=== PATIENT | female | born 1955 | race Caucasian/White ===

== ENCOUNTER → 2022-08-25 11:26 | Outpatient (BNVA) | payer MEDICARE, OTHER, SELFPAY | PROVIDERS: PCP Internal Medicine; Visit Provider Internal Medicine Rheumatology | DX: M06.09 Rheumatoid arthritis without rheumatoid factor, multiple sites (principal); Z79.899 Other long term (current) drug therapy | CPT/HCPCS: 99212 ==

== ENCOUNTER 2023-02-24 09:59 | Outpatient (AMB) | payer MEDICARE, OTHER, SELFPAY ==
--- NOTE | 2023-02-24 10:00 | A.OFFVIS_ITS ---
Intake Vital Signs 02/24/23 10:09 Height 5 ft 5 in Weight 212 lb 15.465 oz BMI 35.4 BP 118/72 Blood Pressure Location Lt brachial Position Sitting Pulse 60 Pulse Source Pulse Oximeter Temp 98.1 F Temp Source Skin Pulse Oximetry (%) 98 Oxygen Delivery Method Room Air Intake Visit Reasons: f/u appt for RA Intake Note: Here for RA follow up Pacemaker placed in June,- [employer] Required: No Accompanied by: Self / Same As Patient Allergies flecainide Allergy (Unknown, Verified 02/24/23 10:01) Unknown Sulfa (Sulfonamide Antibiotics) Allergy (Unknown, Verified 02/24/23 10:01) Unknown eggs Allergy (Intermediate, Uncoded 02/24/23 10:01) nausea vomiting Medication List - Last Reconciled 02/24/23 by Nahid Berger MD albuterol sulfate 90 mcg/actuation (ProAir HFA) 2 puffs inhalation Q6H PRN calcium carbonate-vitamin D3 600 mg-10 mcg (400 unit) (Calcium 600 + D(3)) 1 tab PO BID cyclosporine 0.05% (Restasis) drps ophthalmic (eye) hydroxychloroquine 200 mg PO BID multivitamin 1 tab PO DAILY omeprazole 40 mg PO DAILY rivaroxaban (Xarelto) 20 mg PO DAILY sotalol 160 mg PO Q12H torsemide 10 mg PO BID HPI HPI Comments History of Present Illness Details The patient returns for evaluation of her rheumatoid arthritis. She basically is comfortable with exception of the right forearm. For the past couple of weeks she has noticed some pain there on the volar aspect of the forearm. There has been no redness, bruising or swelling. She was doing some weed whacking and did have some discomfort in the area after that activity but otherwise she does not recall any discrete injury. She remains on hydroxychloroquine at 200 mg twice a day. She said she had an eye exam in June that was okay. She thinks the cardiac situation is stable for now since she acquired a pacemaker. She has remained on his Xarelto, sotalol, and torsemide. [facility] Medical History (Updated 02/24/23 @ 13:45 by Nahid Berger MD) Allergic rhinitis CTS (carpal tunnel syndrome) Esophageal stricture Hypertension JOHN (obstructive sleep apnea) Pacemaker Palpitations Snoring Thoracic aortic aneurysm without rupture Venous insufficiency Surgical History Dilatation of esophagus H/O cardiac radiofrequency ablation History of carpal tunnel release Hx of breast biopsy Hx of colonoscopy Hx of tonsillectomy Family History Mother Heart disease Alzheimer disease Father Pancreas cancer Sister Breast cancer A-fib Social History Household Members: Children Alcohol intake: current Patient Tobacco Use Status: Never used Tobacco Current occupational status: employed Current occupation: [employer] Review of Systems Const Details: Negative for appetite change, weight change, fever, chills, malaise and fatigue Eyes Details: Negative for vision change, dry eyes,headaches and dizziness Card Details: Negative chest pain, edema and syncope Resp Details: Negative for SOB, cough and wheezing GI Details: Negative indigestion/heartburn, nausea, abdominal pain, bowel changes, diarrhea, constipation and bloody stool. Endo Details: Negative for polyuria and polydypsia Yasmany/Lymph Details: Negative for excessive bruising or bleeding. Physical Exam Vital Signs: Last Vital Signs Temp 98.1 F 02/24/23 10:09 Pulse 60 02/24/23 10:09 BP 118/72 02/24/23 10:09 Pulse Ox 98 02/24/23 10:09 Oxygen Delivery Method Room Air 02/24/23 10:09 BMI result Body Mass Index 35.4 APPEARANCE: Patient in no acute distress EYES no redness, pupils equal and reactive to light, eyelids normal EXTREMITIES: No edema, no calf tenderness, normal peripheral pulses. SKIN: No inflammatory or neoplastic lesions. Normal color and turgor JOINT EXAM: Cervical Spine:.? Full range of motion without pain; no tenderness. Thoracic Spine:.? No scoliosis.? No tenderness on palpation. Lumbar Spine:.? Alignment normal.? Full range of motion without pain, no tenderness. Chest Wall:.? No tenderness, swelling, increased warmth or erythema. Hands:.? Normal pain-free range of motion without tenderness.? There is some bony enlargement at the thumb IP joints but they are not tender.? Elsewhere no swelling, increased warmth or erythema. Able to make a full fist and has a good cement boat and barge loader strength.? No flexor tendon triggering or tenderness.? No thenar atrophy or sensory loss. Wrists:? Normal pain-free range of motion without tenderness, swelling, increased warmth or erythema. There is some slight tenderness on the volar aspect of the forearm. I do not detect any redness, swelling or induration. Stressing of the flexes at the wrist that seems to reproduce some this forearm pain and he some degree of muscle irritation. Elbows:. Normal pain-free range of motion without tenderness, swelling, increased warmth or erythema. Shoulders:.?? Full range of motion without pain. No tenderness, weakness, swelling, increased warmth or erythema. Hips:.? Full range of motion without pain. Hip bursa:.? No tenderness. Knees:.?? Normal pain-free range of motion with mild patellofemoral crepitus.? No effusion, tenderness, swelling, increased warmth or erythema.? Ankles:.? Normal pain-free range of motion without tenderness, swelling, increased warmth or erythema. Feet:? Normal pain-free range of motion without tenderness, swelling, increased warmth or erythema. Tender points:? No tenderness to digital palpation at the occiput, trapezius, second rib, lateral epicondyle, knees, greater trochanter and gluteal area bilaterally. ? Assessment & Plan Assessment & Plan (1) Osteopenia: Comment: Osteopenia on BMD 2006. Prednisone Rx 2007-. Alendronate 04/30-01/01. BMD 2018: some what better Code(s): M85.80 - Other specified disorders of bone density and structure, unspecified site (2) Long-term use of hydroxychloroquine: Code(s): Z79.899 - Other detention (current) drug therapy (3) Seronegative rheumatoid arthritis of multiple sites: Comment: 2006 with PMR like presentation; RF,CCP Ab negative. Hydroxychloroquine 2008. Eye exam 01/2010, 07/2010, 01/30, 07/03, 01/31,02/01, 02/02. 02/03, 03/08,03/09, 05/11, 07/2020, 05/2022,06/2022 Code(s): M06.09 - Rheumatoid arthritis without rheumatoid factor, multiple sites Plan Rheumatoid arthritis with no significant joint symptoms currently. There is some slight tenderness in the forearm muscular suggesting maybe an overuse injury. Exam still has some findings of some mild osteoarthritis in the hands. The bone density test was last done in 2018 showing some stable osteopenia. She had four years or so treatment with oral alendronate. She has had no fractures. We will see if we can get the bone density repeated at [place] where she had her previous testing. For now she can stay with hydroxychloroquine and we will aim for follow-up in Rheumatology in about 6 months. Orders: Orders XR DEXA vertrebral fracture Today M85.80 - Other specified disorders of bone density and structure, unspecified site Coding Level of Care Code Est Pt Level 3 (38443) Diagnoses Osteopenia M85.80 Long-term use of hydroxychloroquine Z79.899 Seronegative rheumatoid arthritis of multiple sites M06.09
[2023-02-24 10:09] VITALS: BP 118/72; PULSE 60; TEMP 36.7; O2SAT 98; BMI 35.4
== END 2023-02-24 10:42 | disposition home or self-care (01) ==
PROVIDERS: PCP Internal Medicine; Visit Provider Internal Medicine Rheumatology
DX: M85.80 Other specified disorders of bone density and structure, unspecified site (principal); Z79.899 Other long term (current) drug therapy; M06.09 Rheumatoid arthritis without rheumatoid factor, multiple sites
CPT/HCPCS: 99213

== ENCOUNTER → 2023-02-24 09:59 | Outpatient (BNVA) | payer MEDICARE, OTHER, SELFPAY | PROVIDERS: PCP Internal Medicine; Visit Provider Internal Medicine Rheumatology | DX: M06.09 Rheumatoid arthritis without rheumatoid factor, multiple sites (principal); M85.80 Other specified disorders of bone density and structure, unspecified site; Z79.899 Other long term (current) drug therapy | CPT/HCPCS: 99212 ==

== ENCOUNTER 2023-09-09 12:30 | Outpatient (AMB) | payer MEDICARE, OTHER, SELFPAY ==
--- NOTE | 2023-09-09 12:41 | MHC.OFFVIS ---
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 Accompanied by: Self / Same As Patient Allergies flecainide Allergy (Unknown, Verified 09/09/23 12:44) Unknown Sulfa (Sulfonamide Antibiotics) Allergy (Unknown, Verified 09/09/23 12:44) Unknown eggs Allergy (Intermediate, Uncoded 09/09/23 12:44) nausea vomiting Medication List - Last Reconciled 09/09/23 by Skye Alexander RN albuterol sulfate 90 mcg/actuation (ProAir HFA) 2 puffs inhalation Q6H PRN calcium carbonate-vitamin D3 600 mg-10 mcg (400 unit) (Calcium 600 + D(3)) 1 tab PO BID cyclosporine 0.05% (Restasis) drps ophthalmic (eye) hydroxychloroquine 200 mg PO BID multivitamin 1 tab PO DAILY omeprazole 40 mg PO DAILY rivaroxaban (Xarelto) 20 mg PO DAILY sotalol 120 mg PO Q12H torsemide 10 mg PO BID HPI HPI Comments History of Present Illness Details Ms. Aguirre 68-year-old female returns for follow-up of her rheumatoid arthritis and osteoporosis. She remains on hydroxychloroquine 200 mg twice a day. She have had four years or so treatment with oral alendronate. She has had no fractures. She was recently repeated her DEXA. 02/24/2023 Dr. Berger: The patient returns for evaluation of her rheumatoid arthritis. She basically is comfortable with exception of the right forearm. For the past couple of weeks she has noticed some pain there on the volar aspect of the forearm. There has been no redness, bruising or swelling. She was doing some weed whacking and did have some discomfort in the area after that activity but otherwise she does not recall any discrete injury. She remains on hydroxychloroquine at 200 mg twice a day. She said she had an eye exam in June that was okay. She thinks the cardiac situation is stable for now since she acquired a pacemaker. She has remained on his Xarelto, sotalol, and torsemide. [facility] Medical History Pacemaker CTS (carpal tunnel syndrome) Allergic rhinitis Venous insufficiency JOHN (obstructive sleep apnea) Snoring Palpitations Hypertension Thoracic aortic aneurysm without rupture Esophageal stricture Surgical History Hx of breast biopsy H/O cardiac radiofrequency ablation Hx of tonsillectomy Hx of colonoscopy Dilatation of esophagus History of carpal tunnel release Family History Mother Heart disease Alzheimer disease Father Pancreas cancer Sister Breast cancer A-fib Social History Household Members: Children Alcohol intake: current Patient Tobacco Use Status: Never used Tobacco Current occupational status: employed Current occupation: [employer] Review of Systems Const All systems reviewed & are unremarkable except as noted in HPI and below Physical Exam Vital Signs: Last Vital Signs Temp 97.4 F 09/09/23 12:42 Pulse 67 09/09/23 12:42 Resp 16 09/09/23 12:42 BP 122/84 09/09/23 12:42 Pulse Ox 95 09/09/23 12:42 Oxygen Delivery Method Room Air 09/09/23 12:42 BMI result Body Mass Index 35.3 APPEARANCE: Patient in no acute distress EYES no redness, eyelids normal HEART:? Regular rhythm, S1-S2 heard, no murmurs, rubs or gallops. Pacemaker LUNG:? Clear to percussion and auscultation EXTREMITIES: no calf tenderness, normal peripheral pulses. SKIN: No inflammatory or neoplastic lesions. Normal color and turgor JOINT EXAM: Cervical Spine:.? Full range of motion without pain; no tenderness. Thoracic Spine:.? No scoliosis.? No tenderness on palpation. Lumbar Spine:.? Alignment normal.? Full range of motion without pain, no tenderness. Chest Wall:.? No tenderness, swelling, increased warmth or erythema. Hands:.? Normal pain-free range of motion without tenderness.? There is some bony enlargement at the thumb IP joints but they are not tender.? Elsewhere no swelling, increased warmth or erythema. Able to make a full fist and has a good asset protection assistant strength.? No flexor tendon triggering or tenderness.? No thenar atrophy or sensory loss. Wrists:? Normal pain-free range of motion without tenderness, swelling, increased warmth or erythema. There is some slight tenderness on the volar aspect of the forearm. I do not detect any redness, swelling or induration. Stressing of the flexes at the wrist that seems to reproduce some forearm pain and some degree of muscle irritation. Elbows:. Normal pain-free range of motion without tenderness, swelling, increased warmth or erythema. Shoulders:.?? Full range of motion without pain. No tenderness, weakness, swelling, increased warmth or erythema. Hips:.? Full range of motion without pain. Hip bursa:.? No tenderness. Knees:.?? Normal pain-free range of motion with mild patellofemoral crepitus.? No effusion, tenderness, swelling, increased warmth or erythema.? Ankles:.? Normal pain-free range of motion without tenderness, increased warmth or erythema. Bilateral non-pitting edema with tourniquette like sock impression at above the maleolous. Patient is on diuretic. Feet:? Normal pain-free range of motion without tenderness, swelling, increased warmth or erythema. Tender points:? No tenderness to digital palpation at the occiput, trapezius, second rib, lateral epicondyle, knees, greater trochanter and gluteal area bilaterally. ? Results Reviewed Results Reviewed: DEXA shows -1.7 osteopenia. CRP 0.78 Assessment & Plan Assessment & Plan (1) Osteopenia: Comment: Osteopenia on BMD 2006. Prednisone Rx 2007-. Alendronate 04/30-01/01. BMD 2018: some what better Code(s): M85.80 - Other specified disorders of bone density and structure, unspecified site Qualifiers: Osteopenia location: lumbar spine Qualified Code(s): M85.88 - Other specified disorders of bone density and structure, other site (2) Long-term use of hydroxychloroquine: Code(s): Z79.899 - Other correction (current) drug therapy (3) Seronegative rheumatoid arthritis of multiple sites: Comment: 2006 with PMR like presentation; RF,CCP Ab negative. Hydroxychloroquine 2008. Eye exam 01/2010, 07/2010, 01/30, 07/03, 01/31,02/01, 02/02. 02/03, 03/08,03/09, 05/11, 07/2020, 05/2022,06/2022 Code(s): M06.09 - Rheumatoid arthritis without rheumatoid factor, multiple sites Plan #RA: Rheumatoid arthritis with no significant joint symptoms today. There is some slight tenderness across the MCPs. She also has mild osteoarthritis in the hands. We will continue HCQ 200 mg BID. We will obtain labs for nex visit. She is due for eye exam in September. #Osteopenia: The bone density test was last done showing stable osteopenia. She had four years or so treatment with oral alendronate. She has had no fractures. She will continue on Calcium and Vit D supplements. I do not think we will restart Alendronate at this time. follow-up in Rheumatology in about 6 months. I spent 25 minutes reviewing chart, evaluating patient and documenting Orders: Orders C Reactive Protein Today M06.09 - Rheumatoid arthritis without rheumatoid factor, multiple sites, Z79.899 - Other rodent exterminator (current) drug therapy Erythrocyte Sedimentation Rate Today M06.09 - Rheumatoid arthritis without rheumatoid factor, multiple sites, Z79.899 - Other correction (current) drug therapy Comprehensive Met. Panel Today M06.09 - Rheumatoid arthritis without rheumatoid factor, multiple sites, Z79.899 - Other correction (current) drug therapy Complete Blood Count Auto Diff Today M06.09 - Rheumatoid arthritis without rheumatoid factor, multiple sites, Z79.899 - Other rodent exterminator (current) drug therapy Medications: Refilled hydroxychloroquine 200 mg PO BID 180 tabs 1RF M06.09 - Rheumatoid arthritis without rheumatoid factor, multiple sites Coding Level of Care Code Est Pt Level 3 (97905) Diagnoses Osteopenia of lumbar spine M85.88 Osteopenia location: lumbar spine Long-term use of hydroxychloroquine Z79.899 Seronegative rheumatoid arthritis of multiple sites M06.09
[2023-09-09 12:42] VITALS: BP 122/84; PULSE 67; RESP 16; TEMP 36.3; O2SAT 95; BMI 35.3
== END 2023-09-09 13:20 | disposition home or self-care (01) ==
PROVIDERS: PCP Internal Medicine; Visit Provider Nurse Practitioner Family
DX: M85.88 Other specified disorders of bone density and structure, other site (principal); Z79.899 Other long term (current) drug therapy; M06.09 Rheumatoid arthritis without rheumatoid factor, multiple sites
CPT/HCPCS: 99213

== ENCOUNTER → 2023-09-09 12:30 | Outpatient (BNVA) | payer MEDICARE, OTHER, SELFPAY | PROVIDERS: PCP Internal Medicine; Visit Provider Nurse Practitioner Family | DX: M85.88 Other specified disorders of bone density and structure, other site (principal); M06.09 Rheumatoid arthritis without rheumatoid factor, multiple sites; Z79.899 Other long term (current) drug therapy | CPT/HCPCS: 99212 ==

== ENCOUNTER 2024-04-07 12:23 | Outpatient (AMB) | payer MEDICARE, OTHER, SELFPAY ==
[2024-04-07 12:29] VITALS: BP 128/64; PULSE 63; O2SAT 99; BMI 35.7
--- NOTE | 2024-04-07 12:29 | A.OFFVIS_ITS ---
Vital Signs 04/07/24 12:29 Height 5 ft 5 in Weight 214 lb 8.156 oz BMI 35.7 BP 128/64 Blood Pressure Location Lt brachial Position Sitting Pulse 63 Pulse Source Pulse Oximeter Pulse Oximetry (%) 99 Oxygen Delivery Method Room Air Intake Visit Reasons: RA/Osteopenia Intake Note: Patient presents today for follow up on RA/osteopenia. She was last seen by Madison Wallace on 09/09/23. Allergies flecainide Allergy (Unknown, Verified 04/07/24 12:32) Unknown Sulfa (Sulfonamide Antibiotics) Allergy (Unknown, Verified 04/07/24 12:32) Unknown eggs Allergy (Intermediate, Uncoded 04/07/24 12:32) nausea vomiting Medication List - Last Reconciled 04/07/24 by Lizzie Zaragoza MD albuterol sulfate 90 mcg/actuation (ProAir HFA) 2 puffs inhalation Q6H PRN calcium carbonate-vitamin D3 600 mg-10 mcg (400 unit) (Calcium 600 + D(3)) 1 tab PO BID cyclosporine 0.05% (Restasis) drps ophthalmic (eye) hydroxychloroquine 200 mg PO BID multivitamin 1 tab PO DAILY omeprazole 40 mg PO DAILY perfluorohexyloctane (PF) 100% (Miebo (PF)) 1 drp ophthalmic (eye) QID rivaroxaban (Xarelto) 20 mg PO DAILY sotalol 120 mg PO Q12H torsemide 10 mg PO BID HPI Comments Details: Patient is a 68-year-old female with hypertension, obstructive sleep apnea, sick sinus syndrome status post pacemaker, atrial fibrillation on long-term anticoagulation who presents for follow-up of her osteopenia and seronegative r heumatoid arthritis. Interval History: Last seen 09/09/2023 with Madison Wallace. At that time patient was stable. She was assessed with a recent DEXA which continued to show osteopenia. Decision made to not continue with her alendronate. Today she reports she is feeling well has no new complaints. Sometimes she gets trigger finger in her right index finger but denies prolonged morning stiffness or any other signs or symptoms of rheumatoid arthritis. Rheumatologic History: Presented in 2006 with PMR like presentation. RF and CCP antibodies negative. Started on hydroxychloroquine in 2008. Has been stable on this since then. Current Rheumatology Medication(s): Hydroxychloroquine 200mg bid PFSH Medical History Pacemaker CTS (carpal tunnel syndrome) Allergic rhinitis Venous insufficiency JOHN (obstructive sleep apnea) Snoring Palpitations Hypertension Thoracic aortic aneurysm without rupture Esophageal stricture Surgical History Hx of breast biopsy H/O cardiac radiofrequency ablation Hx of tonsillectomy Hx of colonoscopy Dilatation of esophagus History of carpal tunnel release Family History Mother Heart disease Alzheimer disease Father Pancreas cancer Sister Breast cancer A-fib Social History Household Members: Children Alcohol intake: current Patient Tobacco Use Status: Never used Tobacco Current occupational status: employed Current occupation: [employer] Review of Systems Const Details: Review of Systems Constitutional: Denies fever, chills, weight loss ENT: Denies vision changes, eye pain or eye redness, dental caries, dry mouth GI: Denies nausea, vomiting, diarrhea, abdominal pain, change in BM Pulm: Denies SOB, LORA, hemoptysis, wheezing Cards: Denies chest pain, palpitations Skin: Denies Raynaud's, rash, nail changes, photosensitivity, POT HOLDER BINDER: Denies headaches, weakness, paresthesias, recurrent falls MSK: as per HPI All other systems reviewed and are unremarkable except noted above Physical Exam Vital Signs: BMI result Body Mass Index 35.7 Physical Examination Patient well appearing and in no apparent painful distress Able to rise from chair without support. ?Gait normal. Constitutional Mucous membranes pink and moist patient alert and cooperative HEENT Conjunctiva and sclera clear. ?Pupils equal round and reactive to light. ?No lymphadenopathy. ?Normal dentition. Respiratory System Normal respiratory effort and able to speak in complete sentences. ?Clear to auscultation bilaterally. ?No crackles, rales, rhonchi, wheezes heard. Cardiac System Regular rate and rhythm. ?S1 and S2 heard no murmurs. ?Radial pulses intact bilaterally MSK No deformity, swelling, abnormalities noted to bilateral hands. ?No evidence of synovitis. ?Able to move all joints with full range of motion, without limitation. Hands:.??Normal pain-free range of motion without tenderness, swelling, increased warmth or erythema. Able to make a full fist and has a good human resource consultant strength. Flexor tendon sheath nodule palpated over the right 2nd A1 mahsa. Wrists: Normal pain-free range of motion without tenderness, swelling, increased warmth or erythema. Elbows: Full range of motion without pain. No tenderness, weakness, swelling, increased warmth or erythema. Shoulders: Full range of motion without pain. No tenderness, weakness, swelling, increased warmth or erythema. Hips: Full range of motion without pain. Hip bursa:.??No tenderness. Knees:.???Normal pain-free range of motion without tenderness, swelling, increased warmth or erythema.??There is no effusion or crepitation. tenderness to right lateral, area of fibia head Ankles:.??Normal pain-free range of motion without tenderness, swelling, increased warmth or erythema. Feet:.??Normal pain-free range of motion without tenderness, swelling, increased warmth or erythema. Tender points:??No tenderness to digital palpation at the occiput, trapezius, second rib, lateral epicondyle, knees, greater trochanter bilaterally, and left gluteal. Results Reviewed Results Reviewed: Lab report from 09/07/2023 [place] labs reviewed. No significant labs noted. Assessment & Plan Assessment & Plan (1) Seronegative rheumatoid arthritis of multiple sites: Comment: 2006 with PMR like presentation; RF,CCP Ab negative. Hydroxychloroquine 2008. Eye exam 01/2010, 07/2010, 01/30, 07/03, 01/31,02/01, 02/02. 02/03, 03/08,03/09, 05/11, 07/2020, 05/2022,06/2022, 08/2023 Code(s): M06.09 - Rheumatoid arthritis without rheumatoid factor, multiple sites Category: Medical Plan: #Seronegative RA Patient with seronegative RA currently in remission. We will continue with Plaquenil. Up-to-date with her eye exams. (2) Osteopenia: Comment: Osteopenia on BMD 2006. Prednisone Rx 2007-. Alendronate 04/30-01/01. BMD 2018: some what better BMD 2023: Stable Code(s): M85.80 - Other specified disorders of bone density and structure, unspecified site Category: Medical Qualifiers: Osteopenia location: lumbar spine Qualified Code(s): M85.88 - Other specified disorders of bone density and structure, other site Plan: #Osteopenia Age related versus steroid induced osteopenia. Previously on alendronate but this was stopped in 2012. Repeat DEXA done in 2023 showed stable osteopenia. We will not restart alendronate at this time. We will continue to recommend vitamin-D and calcium as well as weight-bearing exercises which patient is currently doing. (3) Long-term use of hydroxychloroquine: Code(s): Z79.899 - Other skilled nursing (current) drug therapy Category: Medical Plan: #Long-term Use of Hydroxychloroquine Discussed with patient the risks and benefits of hydroxychloroquine in managing the rheumatic condition Benefits include: - Reduced pain, reduce mortality, maintenance of remission and reduction of flares Risks include: - GI upset, skin hyperpigmentation, retinal toxicity (especially after more than 5 years of use), myopathy Advised yearly ophthalmology visits Last ophthalmology visit: 08/2023 Plan I spent 20 minutes reviewing the record and labs, seeing the patient, discussing the treatment plan and documenting in the medical record Orders: Orders Erythrocyte Sedimentation Rate 5 Months M06.09 - Rheumatoid arthritis without rheumatoid factor, multiple sites, M85.88 - Other specified disorders of bone density and structure, other site, Z79.899 - Other skilled nursing (current) drug therapy Comprehensive Met. Panel 5 Months M06.09 - Rheumatoid arthritis without rheumatoid factor, multiple sites, M85.88 - Other specified disorders of bone density and structure, other site, Z79.899 - Other skilled nursing (current) drug therapy Complete Blood Count Auto Diff 5 Months M06.09 - Rheumatoid arthritis without rheumatoid factor, multiple sites, M85.88 - Other specified disorders of bone density and structure, other site, Z79.899 - Other skilled nursing (current) drug therapy Vitamin D 25-OH (D2 and D3) Today E55.9 - Vitamin D deficiency, unspecified C Reactive Protein 5 Months M06.09 - Rheumatoid arthritis without rheumatoid factor, multiple sites, M85.88 - Other specified disorders of bone density and structure, other site, Z79.899 - Other skilled nursing (current) drug therapy Coding Level of Care Code Est Pt Level 3 (73905) Diagnoses Seronegative rheumatoid arthritis of multiple sites M06.09 Osteopenia of lumbar spine M85.88 Osteopenia location: lumbar spine Long-term use of hydroxychloroquine Z79.899
== END 2024-04-07 12:55 | disposition home or self-care (01) ==
PROVIDERS: PCP Internal Medicine; Visit Provider Student in an Organized Health Care Education/Training Program
DX: M06.09 Rheumatoid arthritis without rheumatoid factor, multiple sites (principal); M85.88 Other specified disorders of bone density and structure, other site; Z79.899 Other long term (current) drug therapy
CPT/HCPCS: 99213

== ENCOUNTER → 2024-04-07 12:23 | Outpatient (BNVA) | payer MEDICARE, OTHER, SELFPAY | PROVIDERS: PCP Internal Medicine; Visit Provider Student in an Organized Health Care Education/Training Program | DX: M06.09 Rheumatoid arthritis without rheumatoid factor, multiple sites (principal); M85.88 Other specified disorders of bone density and structure, other site; Z79.899 Other long term (current) drug therapy | CPT/HCPCS: 99212 ==

== ENCOUNTER 2024-09-07 11:20 | Outpatient (AMB) | payer MEDICARE, OTHER, SELFPAY ==
--- NOTE | 2024-09-07 11:29 | A.OFFVIS_ITS ---
Vital Signs 09/07/24 11:35 Height 5 ft 5 in Weight 210 lb 8.663 oz BMI 35.0 BP 120/80 Blood Pressure Location Rt brachial Position Sitting Pulse 110 H Pulse Source Pulse Oximeter Pulse Oximetry (%) 98 Oxygen Delivery Method Room Air Intake Visit Reasons: follow up Intake Note: Patient presents for follow up. Allergies flecainide Allergy (Unknown, Verified 04/07/24 12:32) Unknown Sulfa (Sulfonamide Antibiotics) Allergy (Unknown, Verified 04/07/24 12:32) Unknown eggs Allergy (Intermediate, Uncoded 04/07/24 12:32) nausea vomiting HPI Comments Details: Patient is a 68-year-old female with hypertension, obstructive sleep apnea, sick sinus syndrome status post pacemaker, atrial fibrillation on long-term anticoagulation who presents for follow-up of her osteopenia and seronegative rheumatoid arthritis. Interval History: Last seen 04/07/2024 with me. At that time patient was stable. She was assessed with a recent DEXA which continued to show osteopenia. Decision made to not continue with her alendronate. She reported intermittent problems with her right index finger triggering but at that time it was bothering her. Today she reports she overall well. But noting that her right index trigger finger is more active and is requesting an injection Rheumatologic History: Presented in 2006 with PMR like presentation. RF and CCP antibodies negative. Started on hydroxychloroquine in 2008. Has been stable on this since then. Current Rheumatology Medication(s): Hydroxychloroquine 200mg bid PFSH Medical History Pacemaker CTS (carpal tunnel syndrome) Allergic rhinitis Venous insufficiency JOHN (obstructive sleep apnea) Snoring Palpitations Hypertension Thoracic aortic aneurysm without rupture Esophageal stricture Surgical History Hx of breast biopsy H/O cardiac radiofrequency ablation Hx of tonsillectomy Hx of colonoscopy Dilatation of esophagus History of carpal tunnel release Family History Mother Heart disease Alzheimer disease Father Pancreas cancer Sister Breast cancer A-fib Social History Household Members: Children Alcohol intake: current Patient Tobacco Use Status: Never used Tobacco Current occupational status: employed Current occupation: [employer] Review of Systems Const Details: Review of Systems Constitutional: Denies fever, chills, weight loss ENT: Denies vision changes, eye pain or eye redness, dental caries, dry mouth GI: Denies nausea, vomiting, diarrhea, abdominal pain, change in BM Pulm: Denies SOB, LORA, hemoptysis, wheezing Cards: Denies chest pain, palpitations Skin: Denies Raynaud's, rash, nail changes, photosensitivity, SPOOL CLEANER HAND: Denies headaches, weakness, paresthesias, recurrent falls MSK: as per HPI All other systems reviewed and are unremarkable except noted above Physical Exam Vital Signs: Last Vital Signs Pulse 110 H 09/07/24 11:35 BP 120/80 09/07/24 11:35 Pulse Ox 98 09/07/24 11:35 Oxygen Delivery Method Room Air 09/07/24 11:35 BMI result Body Mass Index 35.0 Physical Examination Patient well appearing and in no apparent painful distress Able to rise from chair without support. ?Gait normal. Constitutional Mucous membranes pink and moist patient alert and cooperative HEENT Conjunctiva and sclera clear. ?Pupils equal round and reactive to light. ?No lymphadenopathy. ?Normal dentition. Respiratory System Normal respiratory effort and able to speak in complete sentences. ?Clear to auscultation bilaterally. ?No crackles, rales, rhonchi, wheezes heard. Cardiac System Regular rate and rhythm. ?S1 and S2 heard no murmurs. ?Radial pulses intact bilaterally MSK No deformity, swelling, abnormalities noted to bilateral hands. ?No evidence of synovitis. ?Able to move all joints with full range of motion, without limitation. Hands:.??Normal pain-free range of motion without tenderness, swelling, increased warmth or erythema. Able to make a full fist and has a good manager environmental health and safety strength. Flexor tendon sheath nodule palpated over the right 2nd A1 mahsa. Wrists: Normal pain-free range of motion without tenderness, swelling, increased warmth or erythema. Elbows: Full range of motion without pain. No tenderness, weakness, swelling, increased warmth or erythema. Shoulders: Full range of motion without pain. No tenderness, weakness, swelling, increased warmth or erythema. Hips: Full range of motion without pain. Hip bursa:.??No tenderness. Knees:.???Normal pain-free range of motion without tenderness, swelling, increased warmth or erythema.??There is no effusion or crepitation. tenderness to right lateral, area of fibia head Ankles:.??Normal pain-free range of motion without tenderness, swelling, increased warmth or erythema. Feet:.??Normal pain-free range of motion without tenderness, swelling, increased warmth or erythema. Tender points:??No tenderness to digital palpation at the occiput, trapezius, second rib, lateral epicondyle, knees, greater trochanter bilaterally, and left gluteal. Office Procedures AMB Joint Injection/Aspiration Joint Injection/Aspiration Details: Procedure was explained to the patient and consent was obtained. ? The area of interest was identified and confirmed with patient. ?This was subsequently cleaned with chlorhexidine x3. ? The area was then anesthetized using ethyl chloride spray. 20 mg Kenalog with 0.1 cc 1% lidocaine was injected without issue. ?Minimal to no bleeding. ?Patient tolerated procedure. Primary Site: right trigger finger Prep: site was prepped using aseptic technique and ethochloride spray was applied Injected: 20 mg of, Kenalog and 1% plain lidocaine Procedure: The patient tolerated the procedure well Coding 73957 - Bicipital Groove Injection Procedure code (CPT) selection complete Office Meds lidocaine (PF) 10 mg/mL (1 %) injection solution Performing Provider: Lizzie Zaragoza MD Performing Location: [facility] [place] Rheumatology Administered by: Lizzie Zaragoza MD on 09/07/24 14:50 Dose Route Admin Location Dispensed Lot Number Expiration Date [facility] Sales Representative Graphic Art 0.1 mL Infiltration right index finger 2 mL [id number] 09/20/26 46015-821-85 [facility] Synvisc-One 48 mg/6 mL intra-articular syringe Performing Provider: Lizzie Zaragoza MD Performing Location: [facility] [place] Rheumatology Documented (not given) by: Lizzie Zaragoza MD on 09/07/24 14:50 Reason Not Given: Not Medically Necessary Kenalog 40 mg/mL suspension for injection Performing Provider: Lizzie Zaragoza MD Performing Location: [facility] [place] Rheumatology Administered by: Lizzie Zaragoza MD on 09/07/24 14:50 Dose Route Admin Location Dispensed Lot Number Expiration Date [facility] Sales Representative Graphic Art 20 mg Tendon Sheath Inj. right index finger 1 mL [id number] 12/20/25 [address]-0 [facility] Results Reviewed Results Reviewed: Scanned lab results reviewed 09/02/2024 ESR 27 WBC 5.5 HB 11.8 Platelets 280 AST 19 ALT 25 Creatinine 0.94 GFR 65 CRP 0.98 Assessment & Plan Assessment & Plan (1) Seronegative rheumatoid arthritis of multiple sites: Comment: 2006 with PMR like presentation; RF,CCP Ab negative. Hydroxychloroquine 2008. Eye exam 01/2010, 07/2010, 01/30, 07/03, 01/31,02/01, 02/02. 02/03, 03/08,03/09, 05/11, 07/2020, 05/2022,06/2022, 08/2023 Code(s): M06.09 - Rheumatoid arthritis without rheumatoid factor, multiple sites Category: Medical Plan: #Seronegative RA Patient with seronegative RA currently in remission. We will continue with Plaquenil. Up-to-date with her eye exams. Plan - Hydroxychloroquine 200mg bid - RTC 4 months - Labs before visit: CBC, CMP, ESR, CRP (2) Osteopenia: Comment: Osteopenia on BMD 2006. Prednisone Rx 2007-. Alendronate 04/30-01/01. BMD 2018: some what better BMD 2023: Stable Code(s): M85.80 - Other specified disorders of bone density and structure, unspecified site Category: Medical Qualifiers: Osteopenia location: lumbar spine Qualified Code(s): M85.88 - Other specified disorders of bone density and structure, other site Plan: #Osteopenia Age related versus steroid induced osteopenia. Previously on alendronate but this was stopped in 2012. Repeat DEXA done in 2023 showed stable osteopenia. We will not restart alendronate at this time. We will continue to recommend vitamin-D and calcium as well as weight-bearing exercises which patient is currently doing. 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 Intermittently gets right index trigger finger. Today she is status post steroid injection 20 mg Kenalog to the right index finger flexor tendon sheath. Recommended splinting to assist with healing for the next 2 weeks (4) Long-term use of hydroxychloroquine: Code(s): Z79.899 - Other apprentice funeral director (current) drug therapy Category: Medical Plan: #Long-term Use of Hydroxychloroquine Discussed with patient the risks and benefits of hydroxychloroquine in managing the rheumatic condition Benefits include: - Reduced pain, reduce mortality, maintenance of remission and reduction of flares Risks include: - GI upset, skin hyperpigmentation, retinal toxicity (especially after more than 5 years of use), myopathy Advised yearly ophthalmology visits Last ophthalmology visit: 08/2023 Plan I spent 20 minutes reviewing the record and labs, seeing the patient, discussing the treatment plan and documenting in the medical record Orders: Orders C Reactive Protein 4 Months M06.09 - Rheumatoid arthritis without rheumatoid factor, multiple sites, M65.321 - Trigger finger, right index finger Erythrocyte Sedimentation Rate 4 Months M06.09 - Rheumatoid arthritis without rheumatoid factor, multiple sites, M65.321 - Trigger finger, right index finger AMB Joint Injection/Aspiration Today M65.321 - Trigger finger, right index finger Complete Blood Count Auto Diff 4 Months M06.09 - Rheumatoid arthritis without rheumatoid factor, multiple sites, M65.321 - Trigger finger, right index finger Comprehensive Met. Panel 4 Months M06.09 - Rheumatoid arthritis without rheumatoid factor, multiple sites, M65.321 - Trigger finger, right index finger Medications: New lidocaine (PF) 0.1 mL Infiltration ONCE 2 mL 0RF M65.321 - Trigger finger, right index finger Kenalog (triamcinolone acetonide) 20 mg (0.5 mL) Tendon Sheath Inj. ONCE 0.5 mL 0RF NS M65.321 - Trigger finger, right index finger Synvisc-One (hylan g-f 20) 48 mg (6 mL) intra-articular ONCE 6 mL 0RF NS M65.321 - Trigger finger, right index finger Coding Level of Care Code Est Pt Level 3 (98199) Complex EM visit Add On G2211 Diagnoses Seronegative rheumatoid arthritis of multiple sites M06.09 Osteopenia of lumbar spine M85.88 Osteopenia location: lumbar spine Trigger index finger of right hand M65.321 Long-term use of hydroxychloroquine Z79.899 CPT Codes Coding - Joint 1: 87090 - Bicipital Groove Injection ([id number])
[2024-09-07 11:35] VITALS: BP 120/80; PULSE 110; O2SAT 98; BMI 35.0
== END 2024-09-07 12:17 | disposition home or self-care (01) ==
LOC: HO.RHE 11:20
PROVIDERS: PCP Internal Medicine; Visit Provider Student in an Organized Health Care Education/Training Program
DX: M06.09 Rheumatoid arthritis without rheumatoid factor, multiple sites (principal); M85.88 Other specified disorders of bone density and structure, other site; M65.321 Trigger finger, right index finger; Z79.899 Other long term (current) drug therapy
CPT/HCPCS: 20550; 99213

== ENCOUNTER → 2024-09-07 11:20 | Outpatient (BNVA) | payer MEDICARE, OTHER, SELFPAY | PROVIDERS: PCP Internal Medicine; Visit Provider Student in an Organized Health Care Education/Training Program | DX: M06.09 Rheumatoid arthritis without rheumatoid factor, multiple sites (principal); M85.88 Other specified disorders of bone density and structure, other site; M65.321 Trigger finger, right index finger; I48.91 Unspecified atrial fibrillation; Z79.01 Long term (current) use of anticoagulants; Z95.0 Presence of cardiac pacemaker; Z79.899 Other long term (current) drug therapy | CPT/HCPCS: 20550; 99212; J3300 ==

== ENCOUNTER 2025-01-10 11:36 | Outpatient (AMB) | payer MEDICARE, OTHER, SELFPAY ==
--- NOTE | 2025-01-10 11:48 | A.OFFVIS_ITS ---
Vital Signs 01/10/25 11:55 Height 5 ft 5 in Weight 214 lb 15.211 oz BMI 35.8 BP 142/74 H Blood Pressure Location Rt brachial Position Sitting Pulse 60 Pulse Source Pulse Oximeter Pulse Oximetry (%) 98 Oxygen Delivery Method Room Air Intake Visit Reasons: follow up Intake Note: Patient presents for RA follow up. Allergies flecainide Allergy (Unknown, Verified 01/10/25 11:54) Unknown Sulfa (Sulfonamide Antibiotics) Allergy (Unknown, Verified 01/10/25 11:54) Unknown eggs Allergy (Intermediate, Uncoded 04/07/24 12:32) nausea vomiting HPI Comments Details: Patient is a 68-year-old female with hypertension, obstructive sleep apnea, sick sinus syndrome status post pacemaker, atrial fibrillation on long-term anticoagulation who presents for follow-up of her osteopenia and seronegative rheumatoid arthritis. Interval History: Last seen 09/07/24 with me - Doing well - C/o right trigger finger - Received steroid injection Today - Doing much better after steroid injection - Left hand with numbness to lateral 3 fingers Rheumatologic History: Presented in 2006 with PMR like presentation. RF and CCP antibodies negative. Started on hydroxychloroquine in 2008. Has been stable on this since then. Current Rheumatology Medication(s): Hydroxychloroquine 200mg bid PFSH Medical History Pacemaker CTS (carpal tunnel syndrome) Allergic rhinitis Venous insufficiency JOHN (obstructive sleep apnea) Snoring Palpitations Hypertension Thoracic aortic aneurysm without rupture Esophageal stricture Surgical History Hx of breast biopsy H/O cardiac radiofrequency ablation Hx of tonsillectomy Hx of colonoscopy Dilatation of esophagus History of carpal tunnel release Family History Mother Heart disease Alzheimer disease Father Pancreas cancer Sister Breast cancer A-fib Social History Household Members: Children Alcohol intake: current Patient Tobacco Use Status: Never used Tobacco Current occupational status: employed Current occupation: [employer] Review of Systems Const Details: Review of Systems Constitutional: Denies fever, chills, weight loss ENT: Denies vision changes, eye pain or eye redness, dental caries, dry mouth GI: Denies nausea, vomiting, diarrhea, abdominal pain, change in BM Pulm: Denies SOB, LORA, hemoptysis, wheezing Cards: Denies chest pain, palpitations Skin: Denies Raynaud's, rash, nail changes, photosensitivity, SLOT ROUTER: Denies headaches, weakness, paresthesias, recurrent falls MSK: as per HPI All other systems reviewed and are unremarkable except noted above Physical Exam Exam Exam: Vital signs reviewed Physical Examination CONSTITUITIONAL Patient alert and cooperative. Well appearing and in no apparent painful distress MSK Hands * Right Hand: Able to make a fist. No swelling or tenderness to palpation of these joints. * Left Hand: Able to make a fist. No swelling or tenderness to palpation of these joints. positive Tinnels test * Herbedens nodes noted bilaterally Wrists * Right Wrist: Full ROM. 70 degrees of wrist flexion, 80 degrees of wrist extension. No swelling or TTP * Left Wrist: Full ROM. 70 degrees of wrist flexion, 80 degrees of wrist extension. No swelling or TTP Elbows * Right Elbow: Full ROM. No swelling or TTP. No TTP of the medial and lateral epicondyles * Left Elbow: Full ROM. No swelling or TTP. No TTP of the medial and lateral epicondyles Shoulders * Right shoulder: Full ROM. No swelling noted. No TTP of the AC joint, subacromial bursa or posterior shoulder * Left shoulder: Full ROM. No swelling noted. No TTP of the AC joint, subacromial bursa or posterior shoulder Knees * Right knee: Full ROM. No swelling noted. No TTP of the knee joint lie or pes anserine bursa * Left knee: Full ROM. No swelling noted. No TTP of the knee joint lie or pes anserine bursa. Ankles * Right ankle: Good ankle dorsiflexion and plantar flexion. No swelling. No TTP of the ankle joint * Left ankle: Good ankle dorsiflexion and plantar flexion. No swelling. No TTP of the ankle joint Feet * Right foot: Negative squeeze test * Left foot: Negative squeeze test Tender points? * No tenderness to palpation of the bilateral trapezius, supraspinatus, anterior costochondral junctions, bilateral suboccipital muscle insertions SKIN No rashes Vital Signs: Last Vital Signs Pulse 60 01/10/25 11:55 BP 142/74 H 01/10/25 11:55 Pulse Ox 98 01/10/25 11:55 Oxygen Delivery Method Room Air 01/10/25 11:55 BMI result Body Mass Index 35.8 Results Reviewed Results Reviewed: Scanned lab results reviewed 09/02/2024 ESR 27 WBC 5.5 HB 11.8 Platelets 280 AST 19 ALT 25 Creatinine 0.94 GFR 65 CRP 0.98 Assessment & Plan Assessment & Plan (1) Seronegative rheumatoid arthritis of multiple sites: Comment: 2006 with PMR like presentation; RF,CCP Ab negative. Hydroxychloroquine 2008. Eye exam 01/2010, 07/2010, 01/30, 07/03, 01/31,02/01, 02/02. 02/03, 03/08,03/09, 05/11, 07/2020, 05/2022,06/2022, 08/2023 Code(s): M06.09 - Rheumatoid arthritis without rheumatoid factor, multiple sites Category: Medical Plan: #Seronegative RA Patient with seronegative RA currently in remission. We will continue with Plaquenil. Up-to-date with her eye exams. Plan - Hydroxychloroquine 200mg bid - RTC 4 months - Labs before visit: CBC, CMP, ESR, CRP (2) Osteopenia: Comment: Osteopenia on BMD 2006. Prednisone Rx 2007-. Alendronate 04/30-01/01. BMD 2018: some what better BMD 2023: Stable Code(s): M85.80 - Other specified disorders of bone density and structure, unspecified site Category: Medical Qualifiers: Osteopenia location: lumbar spine Qualified Code(s): M85.88 - Other specified disorders of bone density and structure, other site Plan: #Osteopenia Age related versus steroid induced osteopenia. Previously on alendronate but this was stopped in 2012. Repeat DEXA done in 2023 showed stable osteopenia. We will not restart alendronate at this time. We will continue to recommend vitamin-D and calcium as well as weight-bearing exercises which patient is currently doing. (3) Trigger index finger of right hand: Code(s): M65.321 - Trigger finger, right index finger Plan: #Right index trigger finger Improved (4) Carpal tunnel syndrome, left: Code(s): G56.02 - Carpal tunnel syndrome, left upper limb Plan: #Left wrist carpal tunnel Recommending splinting If no improvement in 6 weeks patient to call and schedule US injection (5) Long-term use of hydroxychloroquine: Code(s): Z79.899 - Other residential (current) drug therapy Category: Medical Plan: #Long-term Use of Hydroxychloroquine Discussed with patient the risks and benefits of hydroxychloroquine in managing the rheumatic condition Benefits include: - Reduced pain, reduce mortality, maintenance of remission and reduction of flares Risks include: - GI upset, skin hyperpigmentation, retinal toxicity (especially after more than 5 years of use), myopathy Advised yearly ophthalmology visits Last ophthalmology visit: 08/2023 Plan I spent 30 minutes reviewing the record and labs, seeing the patient, discussing the treatment plan and documenting in the medical record Orders: Orders Comprehensive Met. Panel 4 Months M06.09 - Rheumatoid arthritis without rheumatoid factor, multiple sites C Reactive Protein 4 Months M06.09 - Rheumatoid arthritis without rheumatoid factor, multiple sites Complete Blood Count Auto Diff 4 Months M06.09 - Rheumatoid arthritis without rheumatoid factor, multiple sites Erythrocyte Sedimentation Rate 4 Months M06.09 - Rheumatoid arthritis without rheumatoid factor, multiple sites Medications: New [wrist splint (left hand)] As directed 1 ea 0RF G56.02 - Carpal tunnel syndrome, left upper limb Coding Level of Care Code Est Pt Level 4 (36433) Complex EM visit Add On G2211 Diagnoses Seronegative rheumatoid arthritis of multiple sites M06.09 Osteopenia of lumbar spine M85.88 Osteopenia location: lumbar spine Trigger index finger of right hand M65.321 Carpal tunnel syndrome, left G56.02 Long-term use of hydroxychloroquine Z79.899
[2025-01-10 11:55] VITALS: BP 142/74; PULSE 60; O2SAT 98; BMI 35.8
--- OUTSIDE RECORDS SUMMARY | 2025-01-10 12:52 | XMS_ITS | Encounter Summary ---
Author Organization [facility] Address [address] [place] [phone] Phone Care Team Providers Care Material Handler Floorperson Name Role Phone Sukhwinder Diaz MD Primary Care Provider + Encounter Details Date Type Department Care Team (Late st Contact Info) Description 04/30/2021 Procedure Pass [facility] EKG [address] [place] [address] Social History Tobacco Use Types Packs/Day Years Used Date Smoking Tobacco: Never Smokeless Tobacco: Never Comments Unknown Sex and Gender Information Value Date Recorded Sex Assigned at Female 12/28/2020 11:53 AM EDT Legal Sex Female 11:41 AM EDT Gender Identity Female 12/28/2020 11:53 AM EDT Sexual Orientation Straight 12/28/2020 11 :53 AM EDT documented as of this encounter Plan of Treatment Upcoming Encounters Date Type Department Care Team (Late st Contact Info) Description 11/01/2022 Procedure Pass [facility] Cardio EP Device Monitoring [address] [place] [address] 02/04/2023 Procedure Pass [facility] Cardio EP Device Monitoring [address] [place] [address] 04/29/2023 Procedure Pass [facility] Cardio EP Device Monitoring [address] [place] [address] 08/05/2023 Procedure Pass [facility] Cardio EP Device Monitoring [address] [place] [address] 11/04/2023 Procedure Pass [facility] Cardio EP Device Monitoring [address] [place] [address] 02/03/2024 Procedure Pass [facility] Cardio EP Device Monitoring [address] [place] [address] 05/04/2024 Procedure Pass [facility] Cardio EP Device Monitoring [address] [place] [address] 08/03/2024 Procedure Pass [facility] Cardio EP Device Monitoring [address] [place] [address] 11/02/2024 Procedure Pass [facility] Cardio EP Device Monitoring [address] [place] [address] 11/02/2024 Procedure Pass [facility] Cardio EP Device Monitoring [address] [place] [address] 02/15/2025 10:30 AM EDT Appointment [facility] Cardio EP Device Monitoring [address] [place] [address] Robbie Solis MD [address] [place] [id number] 05/17/2025 9:30 AM EST Appointment [facility] Cardio EP Device Monitoring [address] [place] [address] Robbie Solis MD [address] [place] [id number] 08/16/2025 8:30 AM EST Appointment [facility] Cardio EP Device Monitoring [address] [place] [address] Robbie Solis MD [address] [place] [id number] documented as of this encounter Visit Diagnoses Not on filedocumented in this encounter Additional Health Concerns Infection Onset Date Last Indicated Resolved Time CoV-Risk Comment:Per note documentation 07/17/2022 07/17/2022 12:43 AM EST Assessment Noted Time PHQ-2 Depression Total Score: 0 03/13/20 21 10:53 AM EDT documented as of this encounter Care Teams Material Handler Floorperson Relationship Specialty Start Date End Date Sukhwinder Diaz MD [address] [place] [phone] PCP - General Internal Medicine 12/28/20 documented as of this encounter Additional Source Comments The information contained in this document represents components of the legal health record. It is not the complete legal health record.[facility]
--- OUTSIDE RECORDS SUMMARY | 2025-01-10 12:52 | XMS_ITS | Clinical Summary ---
Author Organization [facility] [address] [place] [address] [place] [phone] Phone Care Team Providers Care Beam House Inspector Name Role Phone Sukhwinder Diaz MD Primary Care Provider [phone] Allergies Active Allergy Reactions Criticality Noted Date Comments Egg Nausea And Vomiting 04/25/2008 Flecainide Numbness High 05/16/2024 Sulfa (Sulfonamide Antibiotics) Hives Medium 10/0 08/2004 Medications albuterol HFA (PROAIR HFA ; PROVENTIL HFA ; VENTOLIN HFA) 90 mcg/actuation inhaler 1 Active iron/calcium/karl min D2 (CALCIUM 600 IRON/D ORAL) Take 1 Tablet by mouth 2 Times Daily. Active clotrimazole-beta methasone (LOTRISONE) 1-0.05 % cream Apply sparingly twice daily for up to 2 weeks 0 Active UNABLE TO FIND CPAP Historical (HISTORICAL CPAP) Active hydroxychloroquin e (PLAQUENIL) 200 mg tablet Take 1 tablet (200 mg total) by mouth 2 (two) times a day. 1 Active multivitamin (MULTIPLE VITAMINS ORAL) Take 1 tablet by mouth daily. Active nystatin (MYCOSTATIN) 100,000 unit/gram powder Apply to affected area four times daily for 10 days 0 Active perfluorohexyloct ane, PF, (Miebo, PF,) 100 % drops Administer 1 drop into affected eye(s) 4 (four) times a day. Active cycloSPORINE (RESTASIS) 0.05 % ophthalmic emulsion Administer 1 drop into both eyes 2 (two) times a day. Active clindamycin (CLEOCIN T) 1 % lotion APPLY TWICE DAILY TO LEFT AXILLAE UNTIL CLEAR 4 Active omeprazole (PriLOSEC) [address] capsule TAKE 1 CAPSULE BY MOUTH EVERY DAY 90 capsule 1 5 Active torsemide (DEMADEX) 10 mg tablet TAKE 1 TABLET BY MOUTH DAILY. MAY NEED TO TAKE ADDITIONAL 10 MGS FOR WORSENING LOWER LEG EDEMA 90 tablet 5 Active Xarelto 20 mg tabletIndications :Paroxysmal atrial fibrillation ([facility]/HCC V24, CMS/[facility] V28) TAKE 1 TABLET BY MOUTH EVERY DAY 90 tablet 1 5 Active sotaloL (BETAPACE) 120 mg tablet Take 1 tablet (120 mg total) by mouth 2 (two) times a day. 180 tablet 5 Active Active Problems Problem Noted Date Diagnosed Date Essential (primary) hypertension 09/14/2024 Varicose veins of calf 03/17/2024 SSS (sick sinus syndrome) ([facility] V24, [facility] V28) 08/06/2022 Overview (05/16/2024): Dual-chamber Medtronic device with a 3830 RV lead placed in the septum. Last Assessment & Plan: Status post dual-chamber Medtronic pacemaker at the [facility] and [facility]. Working well. Maintaining sinus rhythm. Continue remote monitoring to the [facility]. Assessment & Plan (01/03/2025 3:51 PM EDT): Pacemaker continues to function normally. Continue monitoring. Pacemaker 07/29/2022 Nonrheumatic mitral valve regurgitation 11/27/19 22 Thoracic aortic aneurysm without rupture ([facility]/ C V24) 11/26/2021 Overview (05/16/2024): Last Assessment & Plan: Mild enlargement of the thoracic aorta. No indication for monitoring currently. We will repeat an echocardiogram next year. Palpitations 02/06/2021 Overview (05/16/2024): Palpitations Tachycardia 02/06/2021 Overview (05/16/2024): Tachycardia Snoring 08/23/2020 Venous insufficiency 07/19/2018 Obstructive sleep apnea 04/17/2017 Overview (05/16/2024): [facility] Home Polysomnogram: Date 03/27/2017; AHI 7, Unclassified apneas 0; Obstructive apneas 9; Central apneas 0; Mixed apneas 0; hypopneas 38; average oxygen saturation 90% (lowest 66% with saturations <88% for 5% or more of study) [facility] Sleep Center Polysomnogram: Date 09/10/2020; Wt 215#; BMI 42; SE 38%; SM 57%; REM 22%; RDI 20 (AHI 20), REM (RDI 50 - AHI 50), Central apneas 1; Obstructive apneas 26; Mixed apneas 0; hypopneas 32; RERAs 0; average oxygen saturation 91% (lowest 69% - with saturations <88% for 5% or more of study); PLMs 0. - Obstructive Sleep Apnea - moderate overall and severe in REM; mostly hypopneas and obstructive apneas; with sleep related hypoventilation by 2020 polysomnogram. Colon polyps 07/24/2016 Esophageal stricture 05/14/2016 (HFpEF) heart failure with p reserved ejection fraction (CMS/HCC V24, CMS/HCC V28) 10/26/2015 Overview (05/16/2024): HFpEF with preserved left ventricular function by echocardiogram. Currently on torsemide and a low-sodium diet. Last Assessment & Plan: Appears euvolemic today on exam. We will continue with current low-sodium diet and torsemide dosing. Continue close monitoring of weight. Consider SGLT2 inhibitor or spironolactone if additional problems with edema develop. Assessment & Plan (01/03/2025 3:50 PM EDT): Stable heart failure symptoms with occasional peripheral edema treated with and responded well to torsemide. Continue to encourage weight a low-sodium diet. By discussed the potential need for increasing her potassium intake with high potassium containing foods particularly when she needs to take additional doses of torsemide. A-fib (CMS/HCC V24, CMS/HCC V28) 12/04/2014 Overview (05/16/2024): patient has an extensive atrial arrhythmia history. First went CTI ablation in 2015 for atrial flutter, followed by cryoballoon ablation for AF in 2018. Repeat CTI ablation in May 2019 for symptomatic recurrence, followed again by DCCV on 08/15/20, and another repeat ablation in October 2020. She has been tried on sotalolol for several years, which was later discontinued due to ineffective rhythm control. Briefly switched to fleicanide but this was discontinued due to neurologic complaints. Ultimately switched to amiodarone which was stopped as well.Subsequently underwent another ablation with Dr. Miller on 04/23/21: 1) Reconnection of the left PV along the ridge sp re-isolation with entrance and exit block 2) Reconnection of the posterior wall sp re-isolation with entrance and exit block 3) Leftward accessory posterior vein with persistent connection suspected to be epicardial in origin and refractory to multiple ablation attempts. 4) Reconnection into the right inferior pulmonary vein sp re-isolation with entrance and exit block 5) Successful DCCV for Atrial fibrillation with early recurrence now sp Ibutilide treatment. Last Assessment & Plan: Doing well with minimal atrial fibrillation recurrence on sotalol 160 twice daily. I am concerned with the increase in the QT interval to 506 today along with the slight increase in creatinine last month. I will however decrease the dose from 160 twice daily to 160 in the morning and 80 in the evening. We will continue to monitor her kidney function and she will let me know if she has any major diarrheal illnesses or vomiting syndromes that might create worsening renal function. Continue pacemaker follow-up at the [facility]. Continue anticoagulation with Xarelto. Assessment & Plan (01/03/2025 3:51 PM EDT): I am delighted to see that this patient is maintaining sinus rhythm with sotalol. Her QTc is mildly prolonged showing the effectiveness of the medication. I suggest that she continue to make sure potassium is normal limits weight 52.8 minutes. We got about evaluate watchman but she is comfortable with Xarelto I will continue that. Carpal tunnel syndrome 04/15/2011 Overview (05/16/2024): 01/30: EMG/NCT mild CTS on right; CTR surgery 09/02 on right Osteoporosis 04/15/2011 Overview (05/16/2024): Osteopenia on BMD 2006. Prednisone Rx 2008-02. Alendronate 04/30-01/01. BMD 2018: some what better Rheumatoid arthritis ([facility] V24, [facility] V28) 02/15/2010 Overview (05/16/2024): 2006 with PMR like presentation; RF,CCP Ab negative. Hydroxychloroquine 2008. Eye exam 01/2010, 07/2010, 01/30, 07/03, 01/31,02/01, 02/02. 02/03, 03/08,03/09, 05/11, 07/2020 Vitamin D deficiency 07/10/2009 Uterovaginal prolapse 09/11/2006 Allergic rhinitis 06/02/2006 Obesity, unspecified 03/24/2005 Encounters Date Type Department Care Team Description 01/03/2025 2:30 PM EDT Office Visit [facility] - [address] [place] [phone] Osmin Cerda MD Atrial fibrillation, unspecified type ([facility] V24, [facility] V28) (Primary Dx); Chronic heart failure with preserved ejection fraction ([facility] V24, [facility] V28); SSS (sick sinus syndrome) ([facility] V24, [facility] V28) 12/20/2024 9:01 AM EDT - 12/20/2024 11:59 PM EDT Hospital Encounter Radiology Department - [address] [phone] Abnormal mammogram Discharge Disposition: Home or Self Care 11/21/2024 Telephone [facility] - [facility] [address] [facility] [place] [phone] Nadira Cabrera MA Medicare Annual Wellness Visit Subsequent (AWV DUE after 09/09/2024) 11/16/2024 1:30 PM EDT Office Visit Vascular Surgery - [place] [address] [place] [address] Evelyn Garcia PA Varicose veins of both lower extremities with pain (Primary Dx) 11/15/2024 Telephone [facility] [phone] [facility] [address] [place] [address] Osmin Cerda MD Med Refill from Last 3 Months Immunizations Name Administration Dates Next Due DTaP, Unspecified 09/07/2001 Moderna SARS-CoV-2 COVID-19, mRNA, LNP-S, preservative free 06/11/2021 Pneumococcal conjugate 20 va lent (Prevnar 20, PCV 20) 2mo and older 03/12/2023 Pneumococcal polysaccharide 23 valent (Pneumovax 23) 2yo and older 01/31/2022 Td Tetanus diptheria (Tdvax) 7yo and older 01/31 Tdap Tetanus diptheria acell ular pertussis (Boostrix; Adacel) 7yo and older 03/31/2011 Surgical History Surgery Date Site/Laterality Comments TONSILLECTOMY PROCEDURE: HISTORICAL TONSILLECTOMY COLONOSCOPY 02/09/2001 PROCEDURE: HISTORICAL COLONOSCOPY CARPAL TUNNEL RELEASE 08/2013 PROCEDURE: [place] NEUROPLASTY &/TRANSPOS MEDIAN NRV CARPAL TUNNE; COMMENT: right COLONOSCOPY 07/22/16 Dr Cali PROCEDURE: HISTORICAL COLONOSCOPY; COMMENT: hemorrhoids & 2 small adenomas; repeat in 5 yrs OTHER SURGICAL HISTORY 07/22/16 Preet PROCEDURE: DILATE ESOPHAGUS; COMMENT: benign, short, distal peptic stricture dilated with TTS balloon; HH; patchy gastritis; no H. pylori; esoph bxys: reflux esophagitis and possible eosinophilic esophagitis BREAST BIOPSY Right benign-many yrs ago OTHER SURGICAL HISTORY PROCEDURE: [place] OTHER CAROTID STENT IPSIL TIA/STRK 120 DAYS/>; COMMENT: cardiac ablations x 5; last perfomed 04/2021 PACEMAKER IMPLANT PROCEDURE: HISTORICAL PACEMAKER; COMMENT: 2022 Medical History Medical History Date Comments Allergic rhinitis, cause unspecified 06/02/2006 DX:Allergic rhinitis, cause unspecified Polymyalgia rheumatica ([facility] V24) 02/07/2008 DX:Polymyalgia rheumatica (HCC); COMMENT: Onset 2006; prednisone responsive Polymyalgia rheumatica ([facility] V24) 02/07/2008 DX:Polymyalgia rheumatica (HCC); COMMENT: Onset 2006; CCP Ab and RF negative; prednisone responsive Patient noncompliance 12/04/2010 DX:Patient noncompliance Paroxysmal atrial fibrillati on ([facility]/HCC V24, [facility] V28) 12/04/2014 DX:Paroxysmal atrial fibril lation (HCC); COMMENT: Noted On Holter monitor, 11/03 Esophageal stricture 05/14/2016 DX:Esophage al stricture Colon polyps 07/24/2016 DX:Colon polyps Actinic keratosis, hx of DX:Acti zach keratosis, hx of Family History Medical History Relation Name Comments Breast cancer Aunt paternal ( age 60's, age onset unknown) Arthritis Brother hips Diabetes Brother Mental illness Brother Other: Other Brother neuropathy Pancreatic cancer Father Coronary artery disease Mother Other: ALZHEIMERS DISEASE Other PO S FAMILY HX Breast cancer Sister 1 Other: Other Sister 1 A fib Other: Other Sister 2 borderline afib Squamous cell carcinoma Sister 2 Asthma Son x2 Diabetes Son x2 Mental illness Son x2 OCD; Colon cancer Neg Hx Ovarian cancer Neg Hx Relation Name Status Comments Aunt Brother Father (Age 70's) Pancreat ic CA, diabetes, CAD Mother (Age 60's) CAD onse t age 50's, CABG Other Sister 1 Alive Sister 2 Alive Breast CA age o nset 50 Son x2 Alive Social History Tobacco Use Types Packs/Day Years Used Date Smoking Tobacco: Never Smokeless Tobacco: Never Tobacco Cessation:Counseling Given: Not Answered Alcohol Use Standard Drinks/Week Comments Yes 0 (1 standard drink = 0.6 oz pur e alcohol) Comments No Sex and Gender Information Value Date Recorded Sex Assigned at Not on file Legal Sex Female 10:15 AM EST Gender Identity Not on file Sexual Orientation Not on file Obstetrics History Para Term AB IAB SAB Ectopic Multiple Livin g Live Births 2 2 2 2 Date Outcome GA Total Labor Labor/2nd/3rd Weight Sex Type Anes PTL Tanesha A1 A5 Name Clin Term Term Last Filed Vital Signs Vital Sign Reading Time Taken Comments Blood Pressure 131/69 11/16/2024 1:25 PM EDT Pulse 60 01/03/2025 3:15 PM EDT Temperature - - Respiratory Rate - - Oxygen Saturation 96% 01/03/2025 3:15 PM EDT Inhaled Oxygen Concentration - - Weight 96.2 kg (212 lb) 01/03/2025 3:15 PM EDT Height 165.1 cm (5' 5 ) 01/03/2025 3:15 PM EDT Body Mass Index 35.28 01/03/2025 3:15 PM EDT Plan of Treatment Upcoming Encounters Date Type Department Care Team (Late st Contact Info) Description 03/17/2025 11:00 AM EDT Office Visit Internal Medicine - [facility] [address] [place] [address] Sukhwinder Diaz MD [address] [place] [address] 05/02/2025 1:00 PM EST Office Visit Vascular Surgery - [place] [address] [place] [address] Evelyn Garcia PA [address] [place] [address] Health Maintenance Due Date Last Done Comments Zoster Vaccines (1 of 2) 1973 RSV Immunization Adult Patients (1 - Risk 60-74 years 1-dose series) 2014 Colorectal Cancer Screening: Colonoscopy 05/31/2022 07/22/2016 Medicare Annual Wellness Visit 05/31/2022 Social Influencers of Health Screening 05/31/2022 COVID-19 Vaccine ( season) 2024 04/24/2022, 06/11/2021, 10/12/2020, Additional history exists Influenza Vaccine (#1) 2025 Hypertension/CHF/CAD Annual BMP Blood Test 09/02/2025 09/02/2024, 03/17/2024, 03/17/2024 Falls Risk Assessment 09/14/2025 09/14/2024 Breast Cancer Screening 12/20/2026 12/21/19, 06/28/2024, 12/22/2023, Additional history exists Cholesterol Screening (Lipid Panel) 03/17/2029 03/17/2024, 03/17/2024 DTaP,Tdap,and Td Vaccines (4 - Td or Tdap) 02/01/2032 01/31/2022, 03/31/2011, 09/07/2001, Additional history exists Osteoporosis Screening (Bone Density Screening) 07/02/2033 07/02/2023, 07/14/2017 Hepatitis C Screening Completed 02/11/2017 Pneumococcal Vaccine: 50+ Years Completed 03/12/2023, 01/31/2022 Depression Screening Completed 09/08/2024, 09/10/19 24 HIB Vaccines Aged Out No longer eligi ble based on patient's age to complete this topic HPV Vaccines Aged Out No longer eligi ble based on patient's age to complete this topic Hepatitis A Vaccines Aged Out No long er eligible based on patient's age to complete this topic Hepatitis B Vaccines Aged Out No long er eligible based on patient's age to complete this topic IPV Vaccines Aged Out No longer eligi ble based on patient's age to complete this topic MMR Vaccines Aged Out No longer eligi ble based on patient's age to complete this topic Meningococcal ACWY Vaccine Aged Out N o longer eligible based on patient's age to complete this topic Meningococcal B Vaccine Aged Out No l onger eligible based on patient's age to complete this topic RSV Immunization Patients Under 20 months Aged Out No longer eligible based on patient's age to complete this topic Varicella Vaccines Aged Out No longer eligible based on patient's age to complete this topic Procedures Procedure Name Priority Date/Time Associated Diagnosis Comments ECG 12-LEAD Routine 01/03/2025 3:52 PM EDT Atrial fibrillation, unspecified type (CMS/HCC V24, CMS/HCC V28) MG MAMMO DIGITAL DIAGNOSTIC W DONTE BILAT Routine 12/20/2024 9:09 AM EDT Abnormal mammogram COMPREHENSIVE METABOLIC PANEL Routine 09/02/2024 11:43 AM EDT Encounter for long-term current use of medication Rheumatoid arthritis of multiple sites with negative rheumatoid factor (CMS/HCC V24, CMS/HCC V28) LIPID PANEL Routine 03/17/2024 DEPRESSION SCREENING Routine 09/10/2023 DXA BONE DENSITY STUDY 1+ SITS AXIAL SKEL Routine 07/02/2023 11:06 AM EST Other specified disorders of bone density and structure, unspecified site HEPATITIS C SCREENING Routine 02/11/2017 COLONOSCOPY Routine 07/22/2016 from Last 3 Months or Most Recently Relevant to Health Maintenance Results * ECG 12 lead (01/03/2025 3:52 PM EDT) Ventricular Rate ECG 60 BPM GEMUSE Atrial Rate 60 BPM GEMUSE P-R Interval 154 ms GEMUSE QRS Duration 100 ms GEMUSE Q-T Interval 508 ms GEMUSE QTc 508 ms GEMUSE P Wave [place] 62 degrees GEMUSE R [place] 65 degrees GEMUSE T [place] 59 degrees GEMUSE ECG Interpretation Atrial-paced rhythm Prolonged QT Abnormal ECG When compared with ECG of 08-NOV-2020 07:58, Electronic atrial pacemaker has replaced Sinus rhythm Confirmed by Sheldon CERDA, OSMIN ([id number]) on 01/05/2025 4:17:42 PM GEMUSE 01/03/2025 3:24 PM EDT 01/05/2025 4:17 PM EDT us Osmin Cerda MD ECG ORDERABLES Edited Result - Final GEMUSE * MG Mammo Digital Diagnostic w Donte bilat (12/20/2024 9:09 AM EDT) Anatomical Region Laterality Modality Breast Bilateral Mammography 12/20/2024 9:20 AM EDT Impressions 12/20/2024 9:53 AM EDT No mammographic evidence for malignancy. BI-RADS CATEGORY: 1 - NEGATIVE RECOMMENDATION: Screening bilateral mammogram is recommended in 1 year. Mammo Location: [facility], [address] [place] [address], [id number], . -------- FINAL REPORT -------- Dictated By: Jenni Loving Dictated Date: 12/20/2024 09:20 ET Assigned Physician: Jenni Loving Reviewed and Electronically Signed By: Jenni Loving Signed Date: 12/20/2024 09:53 ET Workstation ID: [id number] Transcribed By: Self Edit Transcribed Date: 12/20/2024 09:20 ET Narrative 12/20/2024 9:53 AM EDT Bilateral diagnostic mammogram. CLINICAL: 69 years old, Female, small focal asymmetry in the right lower inner breast. COMPARISON: Prior mammograms, latest screening exam from 12/08/2023 and diagnostic exam from 06/28/2024. TECHNIQUE: Bilateral MLO and CC views were obtained digitally with 2-D C views 3-D mammogram (digital breast tomosynthesis). Computer-aided detection was utilized in evaluation of this exam (CAD). FINDINGS: Focal asymmetry of concern in the lower inner quadrant of the right breast is no longer visible. There is no new suspicious masses, architectural distortion or microcalcifications. Follow-up mammogram in one year. BREAST DENSITY: B - There are scattered areas of fibroglandular density. Procedure Note Jenni Loving MD - 12/20/2024 Bilateral diagnostic mammogram. CLINICAL: 69 years old, Female, small focal asymmetry in the right lowerinner breast. COMPARISON: Prior mammograms, latest screening exam from 12/08/2023 anddiagnostic exam from 06/28/2024. TECHNIQUE: Bilateral MLO and CC views were obtained digitally with 2-D Cviews 3- D mammogram (digital breast tomosynthesis). Computer-aideddetection was utilized in evaluation of this exam (CAD). FINDINGS: Focal asymmetry of concern in the lower inner quadrant of the right breastis no longer visible. There is no new suspicious masses, architecturaldistortion or microcalcifications. Follow-up mammogram in one year. BREAST DENSITY: B - There are scattered areas of fibroglandular density. IMPRESSION: No mammographic evidence for malignancy. BI-RADS CATEGORY: 1 - NEGATIVE RECOMMENDATION: Screening bilateral mammogram is recommended in 1 year. Mammo Location: [facility], [address] [place] [address], [id number], . -------- FINAL REPORT -------- Dictated By: Jenni Loving Dictated Date: 12/20/2024 09:20 ET Assigned Physician: Jenni Loving Reviewed and Electronically Signed By: Jenni Loving Signed Date: 12/20/2024 09:53 ET Workstation ID: [id number] Transcribed By: Self Edit Transcribed Date: 12/20/2024 09:20 ET Sukhwinder Diaz MD IMG BI PROCEDURES Final Result * (ABNORMAL) Comprehensive metabolic panel (09/02/2024 11:43 AM EDT) Sodium 143 133 - 145 mmol/L LAB CHEMISTRY METHOD 09/02/2024 3:36 PM [facility] Potassium 3.9 3.5 - 5.5 mmol/L LAB CHEMISTRY METHOD 09/02/2024 3:36 PM [facility] Chloride 107 96 - 110 mmol/L LAB CHEMISTRY METHOD 09/02/2024 3:36 PM [facility] CO2 27 21 - 32 mmol/L LAB CHEMISTRY METHOD 09/02/2024 3:36 PM [facility] Anion Gap 9 3 - 11 LAB CHEMISTRY METHOD 09/02/2024 3:36 PM [facility] Glucose 101(H) 70 - 100 mg/dL LAB CHEMISTRY METHOD 09/02/2024 3:36 PM [facility] BUN 16 5 - 25 mg/dL LAB CHEMISTRY METHOD 09/02/2024 3:36 PM [facility] Creatinine 0.94 0.50 - 1.10 mg/dL LAB CHEMISTRY METHOD 09/02/2024 3:36 PM [facility] eGFR 65 >=60 mL/min/1. 73m2 LAB CHEMISTRY METHOD 09/02/2024 3:36 PM [facility] Comment:Calculation based on the Chronic Kidney Disease Epidemiology Collaboration (CKD-EPI) equation refit without adjustment for race. BUN/Creatinine Ratio 17.0 LAB CHEMISTRY METHOD 09/02/2024 3:36 PM EDT [facility] Calcium 8.8 8.5 - 10.5 mg/dL LAB CHEMISTRY METHOD 09/02/2024 3:36 PM T [facility] AST (SGOT) 19 10 - 42 unit/L LAB CHEMISTRY METHOD 09/02/2024 3:36 PM T [facility] ALT (SGPT) 25 10 - 60 unit/L LAB CHEMISTRY METHOD 09/02/2024 3:36 PM T [facility] Alkaline Phosphatase 104 42 - 121 unit/L LAB CHEMISTRY METHOD 09/02/2024 3:36 PM [facility] Total Protein 6.9 6.0 - 8.0 g/dL LAB CHEMISTRY METHOD 09/02/2024 3:36 PM T [facility] Albumin 3.4 3.2 - 5.0 g/dL LAB CHEMISTRY METHOD 09/02/2024 3:36 PM T [facility] Total Bilirubin 0.5 0.0 - 1.4 mg/dL LAB CHEMISTRY METHOD 09/02/2024 3:36 PM [facility] Blood Venous blood specimen / Unknown Venipuncture / Unknown 09/02/2024 11:43 AM EDT 09/02/2024 11:43 AM EDT Madison Wallace MANAGEMENT ENGINEER LAB BLOOD ORDERABLES Final Result [facility] [address] [place] [address], * Lipid panel (03/17/2024) LDL/HDL Ratio 2 0 - 4 Triglycerides 82 0 - 150 mg/dL Cholesterol 166 0 - 200 mg/dL HDL 71 >=40 mg/dL LDL Cholesterol 79 0 - 100 mg/dL Blood Venous blood specimen / Unknown us Historical Provider MD LAB BLOOD ORDERABLES Marlene l Result * Depression Screening (09/10/2023) Depression Screening abstracted us Historical Provider HEALTH MAINTENANCE Final Result * DXA BONE DENSITY STUDY 1+ SITS AXIAL SKEL (07/02/2023 11:06 AM EST) Anatomical Region Laterality Modality Bone Densitometr y 03/02/2023 9:20 AM EDT Narrative 07/02/2023 7:55 PM EST BONE DENSITY SCAN (DEXA): FINDINGS: Lumbar Spine T-score is -1.7. (SD relative to 20-29 y/o adult) Z-score is 0.3. (SD relative to age matched peers) This is considered osteopenia by WHO criteria. Left Hip T-score is -1.6. Z-score is 0.1. This is considered osteopenia by WHO criteria. Comparison exam(s): 07/14/2017. No statistically significant change in bone mineral density. IMPRESSION: IMPRESSION: Osteopenia by WHO criteria. This patient has a 9.2% risk of major osteoporotic fracture and a 1.2% risk of hip fracture over the next 10 years. (World Health Organization Fracture Risk Assessment) [facility] Department of Internal Medicine recommends using National Osteoporosis Foundation (NOF) guidelines in treatment decisions related to osteoporosis. NOF guidelines suggest considering treatment for postmenopausal women and men aged 50 or older presenting with the following: History of hip or vertebral fracture. T-score = -2.5 (DXA) at the femoral neck, total hip, or spine, after appropriate evaluation to exclude secondary causes. Low bone mass (T-score between -1.0 and -2.5 at the femoral neck or spine) AND a 10-year probability of a hip fracture = 3% OR a 10-year probability of a major osteoporosis-related fracture = 20% based on the [place]-adapted WHO algorithm Please note that all treatment decisions require clinical judgment and consideration of individual patient factors, including patient preferences, co-morbidities, previous drug use, risk factors not captured in the FRAX model (e.g., frailty, falls, vitamin D deficiency, increased bone turnover, interval significant decline in bone density) and possible under- or over-estimation of fracture risk by FRAX. Optional alternative screening schedule based on jayla Alejandro., [facility] July 10, 2011 for patients with osteopenia (based on hip BMD T-score) is as follows: * advanced osteopenia (T scores -2.00 to -2.49), BMD testing every year * moderate osteopenia (T scores -1.50 to -1.99), BMD testing every 5 years mild osteopenia or normal BMD (T scores -1.50 and higher), BMD testing every 15 years Procedure Note Sarah Fitzgerald MD - 02/08/2024 BONE DENSITY SCAN (DEXA): FINDINGS: Lumbar Spine T-score is -1.7. (SD relative to 20-29 y/o adult) Z-score is 0.3. (SD relative to age matched peers) This is considered osteopenia by WHO criteria. Left Hip T-score is -1.6. Z-score is 0.1. This is considered osteopenia by WHO criteria. Comparison exam(s): 07/14/2017. No statistically significant change inbone mineral density. IMPRESSION: IMPRESSION: Osteopenia by WHO criteria. This patient has a 9.2% risk of majorosteoporotic fracture and a 1.2% risk of hip fracture over the next 10 years. (World HealthOrganization Fracture Risk Assessment) [facility] Department of Internal Medicine recommendsusing National Osteoporosis Foundation (NOF) guidelines in treatment decisions related toosteoporosis. NOF guidelines suggest considering treatment for postmenopausal women and menaged 50 or older presenting with the following: History of hip or vertebral fracture. T-score = -2.5 (DXA) at the femoral neck, total hip, or spine, afterappropriate evaluation to exclude secondary causes. Low bone mass (T-score between -1.0 and -2.5 at the femoral neck or spine)AND a 10-year probability of a hip fracture = 3% OR a 10-year probability of a majorosteoporosis-related fracture = 20% based on the [place]-adapted WHO algorithm Please note that all treatment decisions require clinical judgment andconsideration of individual patient factors, including patient preferences, co- morbidities,previous drug use, risk factors not captured in the FRAX model (e.g., frailty, falls, vitaminD deficiency, increased bone turnover, interval significant decline in bone density) andpossible under- or over-estimation of fracture risk by FRAX. Optional alternative screening schedule based on jayla Alejandro., NEJMJanuary 2011 for patients with osteopenia (based on hip BMD T-score) is as follows: * advanced osteopenia (T scores -2.00 to -2.49), BMD testing every year * moderate osteopenia (T scores -1.50 to -1.99), BMD testing every 5years mild osteopenia or normal BMD (T scores -1.50 and higher), BMD testingevery 15 years Nahid Berger MD IM DXA PROCEDURES Final Res ult * Hepatitis C Screening (02/11/2017) [facility] Hepatitis C Screening abstracted Result [facility] Historical Provider HEALTH MAINTENANCE Final Result * Colonoscopy (07/22/2016) [facility] Colonoscopy no interpretation , abstracted Anatomical Region Laterality Modality Other Historical Provider HEALTH MAINTENANCE Final Result from Last 3 Months or Most Recently Relevant to Health Maintenance Insurance MEDICARE [facility] Care Teams Beam House Inspector Relationship Specialty Start Date End Date Sukhwinder Diaz MD [address] [place] [phone] PCP - General Internal Medicine 05/08/20
== END 2025-01-10 12:24 | disposition home or self-care (01) ==
LOC: HO.RHE 11:37
PROVIDERS: PCP Internal Medicine; Visit Provider Student in an Organized Health Care Education/Training Program
DX: M06.09 Rheumatoid arthritis without rheumatoid factor, multiple sites (principal); M85.88 Other specified disorders of bone density and structure, other site; M65.321 Trigger finger, right index finger; G56.02 Carpal tunnel syndrome, left upper limb; Z79.899 Other long term (current) drug therapy
CPT/HCPCS: 99214; G2211

== ENCOUNTER → 2025-01-10 11:36 | Outpatient (BNVA) | payer MEDICARE, OTHER, SELFPAY | PROVIDERS: PCP Internal Medicine; Visit Provider Student in an Organized Health Care Education/Training Program | DX: M06.09 Rheumatoid arthritis without rheumatoid factor, multiple sites (principal); M85.88 Other specified disorders of bone density and structure, other site; M65.321 Trigger finger, right index finger; G56.02 Carpal tunnel syndrome, left upper limb; Z79.899 Other long term (current) drug therapy | CPT/HCPCS: 99212 ==

== ENCOUNTER 2025-02-24 13:14 | Outpatient (AMB) | payer MEDICARE, OTHER, SELFPAY ==
--- OUTSIDE RECORDS SUMMARY | 2025-02-24 13:27 | XMS_ITS ---
Author Name [facility] Organization Unknown Care Team Organization Name Specialty Phone Email Start Date End [facility] 02/08/2025 [facility] Organization [facility] 04/29/2022 02/08/20 24
--- OUTSIDE RECORDS SUMMARY | 2025-02-24 13:27 | XMS_ITS | Encounter Summary ---
Author Organization [facility] Address [address] [place] [phone] Phone Care Team Providers Care Acid Extractor Name Role Phone Sukhwinder Diaz MD Primary Care Provider + Encounter Details Date Type Department Care Team (Late st Contact Info) Description 04/22/2021 Procedure Pass [facility] [address] [place] [address] Social History Tobacco Use Types Packs/Day Years Used Date Smoking Tobacco: Never Smokeless Tobacco: Never Comments Unknown Sex and Gender Information Value Date Recorded Sex Assigned at Female 12/28/2020 11:53 AM EDT Legal Sex Female 11:41 AM EDT Gender Identity Female 12/28/2020 11:53 AM EDT Sexual Orientation Straight 12/28/2020 11 :53 AM EDT documented as of this encounter Functional Status * Calculated C-SSRS Risk Score (Lifetime/Recent) Answer Date of Assessment Author No Risk Indicated 04/23/2021 6:40 PM EDT Ana Summers, SAMMIE * [place] Suicide Severity Rating Scale (Screener/Recent Self-Report) Question Answer Date of Assessment Author 1. Wish to be (Past 1 Month) No 021 6:40 PM EDT Ana Summers, RN 2. Non-Specific Active Suici jani Thoughts (Past 1 Month) No 04/23/2021 6:40 PM EDT Ana Summers, RN 6. Suicidal Behavior (Lifetime) No 6:40 PM EDT Ana Summers, SAMMIE documented as of this encounter Plan of Treatment Upcoming Encounters Date Type Department Care Team (Late st Contact Info) Description 11/01/2022 Procedure Pass [facility] Cardio EP Device Monitoring [address] [place] [address] 02/04/2023 Procedure Pass [facility] Cardio EP Device Monitoring [address] [place] [address] 04/29/2023 Procedure Pass [facility] Cardio EP Device Monitoring [address] [place] [address] 08/05/2023 Procedure Pass [facility] Cardio EP Device Monitoring [address] [place] [address] 11/04/2023 Procedure Pass [facility] Cardio EP Device Monitoring [address] [place] [address] 02/03/2024 Procedure Pass [facility] Cardio EP Device Monitoring [address] [place] [address] 05/04/2024 Procedure Pass [facility] Cardio EP Device Monitoring [address] [place] [address] 08/03/2024 Procedure Pass [facility] Cardio EP Device Monitoring [address] [place] [address] 11/02/2024 Procedure Pass [facility] Cardio EP Device Monitoring [address] [place] [address] 02/01/2025 Procedure Pass [facility] Cardio EP Device Monitoring [address] [place] [address] 02/01/2025 Procedure Pass [facility] Cardio EP Device Monitoring [address] [place] [address] 05/17/2025 9:30 AM EST Appointment [facility] Cardio EP Device Monitoring [address] [place] [address] Robbie Solis MD [address] [place] [address] [place] [address] 08/16/2025 8:30 AM EST Appointment [facility] Cardio EP Device Monitoring [address] [place] [address] Robbie Solis MD [address] [place] [address] [place] [address] documented as of this encounter Visit Diagnoses Not on filedocumented in this encounter Additional Health Concerns Infection Onset Date Last Indicated Resolved Time CoV-Risk Comment:Per note documentation 07/17/2022 07/17/2022 12:43 AM EST Assessment Noted Time PHQ-2 Depression Total Score: 0 03/13/20 21 10:53 AM EDT documented as of this encounter Care Teams Acid Extractor Relationship Specialty Start Date End Date Sukhwinder Diaz MD [address] [place] [address] PCP - General Internal Medicine 12/28/20 documented as of this encounter Additional Source Comments The information contained in this document represents components of the legal health record. It is not the complete legal health record.[facility]
--- OUTSIDE RECORDS SUMMARY | 2025-02-24 13:27 | XMS_ITS | Encounter Summary ---
Author Organization [facility] Address [address] [place] [phone] Phone Care Team Providers Care Baggage Clerk Name Role Phone Sukhwinder Diaz MD Primary Care Provider + Encounter Details Date Type Department Care Team (Late st Contact Info) Description 04/23/2021 Procedure Pass [facility] Electrophysiology Lab [address] [place] [phone] Social History Tobacco Use Types Packs/Day Years [...] Risk Indicated 04/23/2021 6:40 PM EDT Ana Summers RN * [place] Suicide Severity Rating Scale (Screener/Recent Self-Report) Question Answer Date of Assessment Author 1. Wish to be (Past 1 Month) No 6:40 PM EDT Ana Summers, SAMMIE 2. Non-Specific Active Suici jani Thoughts (Past 1 Month) No 04/23/2021 6:40 PM EDT Ana Summers, SAMMIE 6. Suicidal Behavior (Lifetime) No 6:40 PM EDT Ana Summers RN documented as of this encounter Plan of Treatment Upcoming Encounters Date Type Department Care Team (Late st Contact Info) Description 11/01/2022 Procedure Pass [facility] Cardio EP Device Monitoring [address] [place] [address] 02/04/2023 Procedure Pass [facility] Cardio EP Device Monitoring [address] [place] [address] 04/29/2023 Procedure Pass [facility] Cardio EP Device Monitoring [address] [place] [address] 08/05/2023 Procedure Pass [facility] Cardio EP Device Monitoring [address] [place] [address] 11/04/2023 Procedure Pass [facility] Cardio EP Device Monitoring [address] [place] [address] 02/03/2024 Procedure Pass [facility] Cardio EP Device Monitoring [address] [place] [address] 05/04/2024 Procedure Pass [facility] Cardio EP Device Monitoring [address] [place] [address] 08/03/2024 Procedure Pass [facility] Cardio EP Device Monitoring [address] [place] [address] 11/02/2024 Procedure Pass [facility] Cardio EP Device Monitoring [address] [place] [address] 02/01/2025 Procedure Pass [facility] Cardio EP Device Monitoring [address] [place] [address] 02/01/2025 Procedure Pass [facility] Cardio EP Device Monitoring [address] [place] [address] 05/17/2025 9:30 AM EST Appointment [facility] Cardio EP Device Monitoring [address] [place] [address] Robbie Solis MD [address] [place] [address] [place] [address] [email or web address] 08/16/2025 8:30 AM EST Appointment [facility] Cardio EP Device Monitoring [address] [place] [address] Robbie Solis MD [address] [place] [address] [place] [address] [email or web address] documented as of this encounter Visit Diagnoses Not on filedocumented in this encounter Additional Health Concerns Infection Onset Date Last Indicated Resolved Time CoV-Risk Comment:Per note documentation 07/17/2022 07/17/2022 12:43 AM EST Assessment Noted Time PHQ-2 Depression Total Score: 0 03/13/20 10:53 AM EDT documented as of this encounter Care Teams Baggage Clerk Relationship Specialty Start Date End Date Sukhwinder Diaz MD [address] [place] [address] PCP - General Internal Medicine 12/28/20 documented as of this encounter Additional Source Comments The information contained in this document represents components of the legal health record. It is not the complete legal health record.[facility]
--- OUTSIDE RECORDS SUMMARY | 2025-02-24 13:27 | XMS_ITS | Encounter Summary ---
Author Organization [facility] Address [address] [place] [address] Phone Care Team Providers Care Senior Manager Creative Services Name Role Phone Sukhwinder Diaz MD Primary Care Provider + Encounter Details Date Type Department Care Team (Late st Contact Info) Description 08/05/2023 Procedure Pass [facility] Cardio EP Device Monitoring [address] [place] [address] Social History Tobacco Use Types Packs/Day Years Used Date Smoking Tobacco: Never Smokeless Tobacco: Never Education Answer Date Recorded Are you interested in more education? Not on debora e 10/18/2022 Are you concerned about learning? Not on file 10/18/2022 No 10/18/2022 No 10/18/2022 Digital Access Answer Date Recorded No 11/18/2022 No 11/18/2022 Reliable internet access at home? Not on file 11/18/2022 Device with a working camera? Not on file Intimate Partner Violence Answer Date R ecorded Are you denied basic needs s uch as food, clothing, or medical care? No 07/17/2022 In the past 12 months have y ou been in a relationship with a person who hurts, threatens, or tries to control you? No 07/17/2022 Are you denied basic needs s uch as food, clothing, or medical care? No 07/17/2022 In the past 12 months have y ou been in a relationship with a person who hurts, threatens, or tries to control you? No 07/17/2022 Comments Unknown Sex and Gender Information Value Date Recorded Sex Assigned at Female 12/28/2020 11:53 AM EDT Legal Sex Female 11:41 AM EDT Gender Identity Female 12/28/2020 11:53 AM EDT Sexual Orientation Straight 12/28/2020 11 :53 AM EDT documented as of this encounter Plan of Treatment Upcoming Encounters Date Type Department Care Team (Late st Contact Info) Description 11/01/2022 Procedure Pass [facility] Cardio EP Device Monitoring [address] [place] [address] 02/04/2023 Procedure Pass [facility] Cardio EP Device Monitoring [address] [place] [address] 04/29/2023 Procedure Pass [facility] Cardio EP Device Monitoring [address] [place] [address] 08/05/2023 Procedure Pass [facility] Cardio EP Device Monitoring [address] [place] [address] 11/04/2023 Procedure Pass [facility] Cardio EP Device Monitoring [address] [place] [address] 02/03/2024 Procedure Pass [facility] Cardio EP Device Monitoring [address] [place] [address] 05/04/2024 Procedure Pass [facility] Cardio EP Device Monitoring [address] [place] [address] 08/03/2024 Procedure Pass [facility] Cardio EP Device Monitoring [address] [place] [address] 11/02/2024 Procedure Pass [facility] Cardio EP Device Monitoring [address] [place] [address] 02/01/2025 Procedure Pass [facility] Cardio EP Device Monitoring [address] [place] [address] 02/01/2025 Procedure Pass [facility] Cardio EP Device Monitoring [address] [place] [address] 05/17/2025 9:30 AM EST Appointment [facility] Cardio EP Device Monitoring [address] [place] [address] Robbie Solis MD [address] [place] [address] [place] [address] 08/16/2025 8:30 AM EST Appointment [facility] Cardio EP Device Monitoring [address] [place] [address] Robbie Solis MD [address] [place] [address] [place] [address] [email or web address] documented as of this encounter Visit Diagnoses Not on filedocumented in this encounter Additional Health Concerns Assessment Noted Time PHQ-2 Depression Total Score: 0 03/13/20 10:53 AM EDT documented as of this encounter Care Teams Senior Manager Creative Services Relationship Specialty Start Date End Date Sukhwinder Diaz MD [address] [place] [address] PCP - General Internal Medicine 12/28/20 documented as of this encounter Additional Source Comments The information contained in this document represents components of the legal health record. It is not the complete legal health record.[facility]
--- OUTSIDE RECORDS SUMMARY | 2025-02-24 13:27 | XMS_ITS | Encounter Summary ---
Author Organization [facility] Address [address] [place] [address] Phone Care Team Providers Care Rn Eligibility Name Role Phone Sukhwinder Diaz MD Primary Care Provider + Encounter Details Date Type Department Care Team (Late st Contact Info) Description 02/03/2024 Procedure Pass [facility] Cardio EP Device Monitoring [address] [place] [address] Social History Tobacco Use Types Packs/Day Years [...] st Contact Info) Description 11/01/2022 Procedure Pass [facility] Cardio EP Device Monitoring [address] [place] [address] 02/04/2023 Procedure Pass [facility] Cardio EP Device Monitoring [address] [place] [address] 04/29/2023 Procedure Pass [facility] Cardio EP Device Monitoring [address] [place] [address] 08/05/2023 Procedure Pass [facility] Cardio EP Device Monitoring [address] [place] [address] 11/04/2023 Procedure Pass [facility] Cardio EP Device Monitoring [address] [place] [address] 02/03/2024 Procedure Pass [facility] Cardio EP Device Monitoring [address] [place] [address] 05/04/2024 Procedure Pass [facility] Cardio EP Device Monitoring [address] [place] [address] 08/03/2024 Procedure Pass [facility] Cardio EP Device Monitoring [address] [place] [address] 11/02/2024 Procedure Pass [facility] Cardio EP Device Monitoring [address] [place] [address] 02/01/2025 Procedure Pass [facility] Cardio EP Device Monitoring [address] [place] [address] 02/01/2025 Procedure Pass [facility] Cardio EP Device Monitoring [address] [place] [address] 05/17/2025 9:30 AM EST Appointment [facility] Cardio EP Device Monitoring [address] [place] [address] Robbie Solis MD [address] [place] [address] [place] [address] 08/16/2025 8:30 AM EST Appointment [facility] Cardio EP Device Monitoring [address] [place] [address] Robbie Solis MD [address] [place] [address] [place] [address] [email or web address] documented as of this encounter Visit Diagnoses Not on filedocumented in this encounter Additional Health Concerns Assessment Noted Time PHQ-2 Depression Total Score: 0 03/13/20 10:53 AM EDT documented as of this encounter Care Teams Rn Eligibility Relationship Specialty Start Date End Date Sukhwinder Diaz MD [address] [place] [address] PCP - General Internal Medicine 12/28/20 documented as of this encounter Additional Source Comments The information contained in this document represents components of the legal health record. It is not the complete legal health record.[facility]
--- OUTSIDE RECORDS SUMMARY | 2025-02-24 13:27 | XMS_ITS | Encounter Summary ---
Author Organization [facility] Address [address] [place] [phone] Phone Care Team Providers Care Change Agent Name Role Phone Sukhwinder Diaz MD Primary Care Provider + Encounter Details Date Type Department Care Team (Latest Contact Info) Description 04/23/2021 Transcribe Orders [facility] Echocardiography [address] [place] [address] Spears, Hanna [address] [place] [address] [email or web address] Cardiac arrhythmia, unspecified cardiac arrhythmia type (Primary Dx); Atrial fibrillation, unspecified type Social History Tobacco Use Types Packs/Day Years [...] 6:40 PM EDT Ana Summers, SAMMIE * [place] Suicide Severity Rating Scale (Screener/Recent Self-Report) Question Answer Date of Assessment Author 1. Wish to be (Past 1 Month) No 021 6:40 PM EDT Ana Summers, RN 2. Non-Specific Active Suici jani Thoughts (Past 1 Month) No 04/23/2021 6:40 PM EDT Ana Summers, RN 6. Suicidal Behavior (Lifetime) No 6:40 PM EDT Ana Summers, RN documented as of this encounter Plan of Treatment Upcoming Encounters Date Type Department Care Team (Late st Contact Info) Description 11/01/2022 Procedure Pass [facility] Cardio EP Device Monitoring [address] [place] [address] 02/04/2023 Procedure Pass [facility] Cardio EP Device Monitoring [address] [place] [address] 04/29/2023 Procedure Pass [facility] Cardio EP Device Monitoring [address] [place] [address] 08/05/2023 Procedure Pass [facility] Cardio EP Device Monitoring [address] [place] [address] 11/04/2023 Procedure Pass [facility] Cardio EP Device Monitoring [address] [place] [address] 02/03/2024 Procedure Pass [facility] Cardio EP Device Monitoring [address] [place] [address] 05/04/2024 Procedure Pass [facility] Cardio EP Device Monitoring [address] [place] [address] 08/03/2024 Procedure Pass [facility] Cardio EP Device Monitoring [address] [place] [address] 11/02/2024 Procedure Pass [facility] Cardio EP Device Monitoring [address] [place] [address] 02/01/2025 Procedure Pass [facility] Cardio EP Device Monitoring [address] [place] [address] 02/01/2025 Procedure Pass [facility] Cardio EP Device Monitoring [address] [place] [address] 05/17/2025 9:30 AM EST Appointment [facility] Cardio EP Device Monitoring [address] [place] [address] Robbie Solis MD [address] [place] [address] [place] [address] [email or web address] 08/16/2025 8:30 AM EST Appointment [facility] Cardio EP Device Monitoring [address] [place] [address] Robbie Solis MD [address] [place] [address] [place] [address] [email or web address] documented as of this encounter Procedures Procedure Name Priority Date/Time Associated Diagnosis Comments ECG 12-LEAD Routine 04/25/2021 10:53 AM EDT Atrial fibrillation, unspecified type ECG 12-LEAD Routine 04/25/2021 2:26 AM EDT Atrial fibrillation, unspecified type ECG 12-LEAD Routine 04/25/2021 2:25 AM EDT Atrial fibrillation, unspecified type ECG 12-LEAD Routine 04/24/2021 8:27 PM EDT Atrial fibrillation, unspecified type ECG 12-LEAD Routine 04/24/2021 4:47 PM EDT Atrial fibrillation, unspecified type ECG 12-LEAD Routine 04/23/2021 6:34 PM EDT Cardiac arrhythmia, unspecified cardiac arrhythmia type documented in this encounter Results * ECG 12-LEAD (04/25/2021 10:53 AM EDT) Systolic Blood Pressure 123 mmHg [facility] Diastolic Blood Pressure 57 mmHg [facility] Ventricular Rate EKG/MIN 66 BPM [facility] Atrial Rate 66 BPM [facility] WV Interval 180 ms [facility] QRS Duration 80 ms [facility] QT Interval 456 ms [facility] QTC Interval 478 ms [facility] P [place] 49 degrees [facility] R Wave [place] -12 degrees [facility] T Wave [place] 37 degrees [facility] 04/25/2021 10:5 3 AM EDT Narrative [facility] - 04/30/2021 2:44 PM EST Normal sinus rhythm When compared with ECG of 25-APR-2021 02:26, (unconfirmed) Sinus rhythm has replaced Atrial flutter Vent. rate has decreased BY 44 BPM us Shila Arellano PA-C ECG ORDERABLES Final Result Performing Organization Address [facility] Co de Phone Number [facility] * ECG 12-LEAD (04/25/2021 2:26 AM EDT) Systolic Blood Pressure 129 mmHg [facility] Diastolic Blood Pressure 60 mmHg [facility] Ventricular Rate EKG/MIN 110 BPM [facility] Atrial Rate 234 BPM [facility] QRS Duration 84 ms [facility] QT Interval 372 ms [facility] QTC Interval 503 ms [facility] R Wave [place] -17 degrees [facility] T Wave [place] 50 degrees [facility] 04/25/2021 2:26 AM EDT Narrative [facility] - 04/25/2021 2:02 PM EDT Atrial flutter with variable A-V block Abnormal ECG When compared with ECG of 25-APR-2021 02:25, (unconfirmed) No significant change Shila NAVARRETE-C ECG ORDERABLES Final Result Performing Organization Address [facility] de Phone Number [facility] * ECG 12-LEAD (04/25/2021 2:25 AM EDT) Systolic Blood Pressure 129 mmHg [facility] Diastolic Blood Pressure 60 mmHg [facility] Ventricular Rate EKG/MIN 112 BPM [facility] QRS Duration 86 ms [facility] QT Interval 384 ms [facility] QTC Interval 524 ms [facility] R Wave [place] -20 degrees [facility] T Wave [place] 61 degrees [facility] 04/25/2021 2:25 AM EDT Narrative [facility] - 04/25/2021 2:02 PM EDT Atrial fibrillation with rapid ventricular response Prolonged QT interval or t-u fusion, consider myocardial disease, electrolyte imbalance, or drug effects Abnormal ECG When compared with ECG of 24-APR-2021 20:27, (unconfirmed) Atrial fibrillation has replaced Sinus rhythm Vent. rate has increased BY 48 BPM Shila Arellano PA-C ECG ORDERABLES Final Result Performing Organization Address [facility] Co de Phone Number [facility] * ECG 12-LEAD (04/24/2021 8:27 PM EDT) Systolic Blood Pressure 126 mmHg [facility] Diastolic Blood Pressure 62 mmHg [facility] Ventricular Rate EKG/MIN 64 BPM [facility] Atrial Rate 64 BPM [facility] WV Interval 172 ms [facility] QRS Duration 82 ms [facility] QT Interval 462 ms [facility] QTC Interval 476 ms [facility] P [place] 48 degrees [facility] R Wave [place] -8 degrees [facility] T Wave [place] 38 degrees [facility] 04/24/2021 8:27 PM EDT Narrative [facility] - 04/25/2021 2:02 PM EDT Normal sinus rhythm Normal ECG When compared with ECG of 24-APR-2021 16:48, Sinus rhythm has replaced Atrial flutter Vent. rate has decreased BY 52 BPM Shila Arellano PA-C ECG ORDERABLES Final Result Performing Organization Address [facility] Co de Phone Number [facility] * ECG 12-LEAD (04/24/2021 4:47 PM EDT) Systolic Blood Pressure 103 mmHg [facility] Diastolic Blood Pressure 69 mmHg [facility] Ventricular Rate EKG/MIN 116 BPM [facility] Atrial Rate 249 BPM [facility] QRS Duration 84 ms [facility] QT Interval 350 ms [facility] QTC Interval 486 ms [facility] R Wave [place] -13 degrees [facility] T Wave [place] 17 degrees [facility] 04/24/2021 4:47 PM EDT Narrative [facility] - 04/25/2021 2:02 PM EDT Atrial flutter with variable A-V block Nonspecific ST and T wave abnormality Abnormal ECG When compared with ECG of 24-APR-2021 10:48, (unconfirmed) Atrial flutter has replaced Sinus rhythm Vent. rate has increased BY [address] now depressed in Inferior leads Non-specific change in ST segment in Anterior-lateral leads us Shila NAVARRETE-C ECG ORDERABLES Final Result Performing Organization Address [facility] Co de Phone Number [facility] * ECG 12-LEAD (04/23/2021 6:34 PM EDT) Systolic Blood Pressure 126 mmHg [facility] Diastolic Blood Pressure 58 mmHg [facility] Ventricular Rate EKG/MIN 68 BPM [facility] Atrial Rate 68 BPM [facility] WV Interval 170 ms [facility] QRS Duration 86 ms [facility] QT Interval 452 ms [facility] QTC Interval 480 ms [facility] P [place] 82 degrees [facility] R Wave [place] -24 degrees [facility] T Wave [place] 40 degrees [facility] 04/23/2021 6:34 PM EDT Narrative [facility] - 04/26/2021 1:22 PM EDT Poor data quality, interpretation may be adversely affected Sinus rhythm with Premature atrial complexes Nonspecific T wave abnormality Abnormal ECG When compared with ECG of 23-APR-2021 16:17, (unconfirmed) Premature atrial complexes are now Present us Shila Arellano PA-C ECG ORDERABLES Final Result [facility] documented in this encounter Visit Diagnoses Diagnosis Cardiac arrhythmia, unspecified cardiac arrhythmia type- Primary Atrial fibrillation, unspecified type documented in this encounter Additional Health Concerns Infection Onset Date Last Indicated Resolved Time CoV-Risk Comment:Per note documentation 07/17/2022 07/17/2022 12:43 AM EST Assessment Noted Time PHQ-2 Depression Total Score: 0 03/13/20 10:53 AM EDT documented as of this encounter Care Teams Change Agent Relationship Specialty Start Date End Date Sukhwinder Diaz MD [address] [place] [address] PCP - General Internal Medicine 12/28/20 documented as of this encounter Additional Source Comments The information contained in this document represents components of the legal health record. It is not the complete legal health record.[facility]
--- OUTSIDE RECORDS SUMMARY | 2025-02-24 13:27 | XMS_ITS | Encounter Summary ---
Author Organization [facility] Address [address] [place] [phone] Phone Care Team Providers Care Production Supv Name Role Phone Sukhwinder Diaz MD Primary Care Provider + Encounter Details Date Type Department Care Team (Late st Contact Info) Description 11/04/2023 Procedure Pass [facility] Cardio EP Device Monitoring [address] [place] [address] Social History Tobacco Use Types Packs/Day Years [...] [facility] Cardio EP Device Monitoring [address] [place] [address] 02/04/2023 Procedure Pass [facility] Cardio EP Device Monitoring [address] [place] [address] 04/29/2023 Procedure Pass [facility] Cardio EP Device Monitoring [address] [place] [address] 08/05/2023 Procedure Pass [facility] Cardio EP Device Monitoring [address] [place] [address] 11/04/2023 Procedure Pass [facility] Cardio EP Device Monitoring [address] [place] [address] 02/03/2024 Procedure Pass [facility] Cardio EP Device Monitoring [address] [place] [address] 05/04/2024 Procedure Pass [facility] Cardio EP Device Monitoring [address] [place] [address] 08/03/2024 Procedure Pass [facility] Cardio EP Device Monitoring [address] [place] [address] 11/02/2024 Procedure Pass [facility] Cardio EP Device Monitoring [address] [place] [address] 02/01/2025 Procedure Pass [facility] Cardio EP Device Monitoring [address] [place] [address] 02/01/2025 Procedure Pass [facility] Cardio EP Device Monitoring [address] [place] [address] 05/17/2025 9:30 AM EST Appointment [facility] Cardio EP Device Monitoring [address] [place] [address] Robbie Solis MD [address] [place] [address] [place] [address] 08/16/2025 8:30 AM EST Appointment [facility] Cardio EP Device Monitoring [address] [place] [address] Robbie Solis MD [address] [place] [address] [place] [address] [email or web address] documented as of this encounter Visit Diagnoses Not on filedocumented in this encounter Additional Health Concerns Assessment Noted Time PHQ-2 Depression Total Score: 0 03/13/20 10:53 AM EDT documented as of this encounter Care Teams Production Supv Relationship Specialty Start Date End Date Sukhwinder Diaz MD [address] [place] [phone] PCP - General Internal Medicine 12/28/20 documented as of this encounter Additional Source Comments The information contained in this document represents components of the legal health record. It is not the complete legal health record.[facility]
--- OUTSIDE RECORDS SUMMARY | 2025-02-24 13:27 | XMS_ITS | Encounter Summary ---
Author Organization [facility] Address [address] [place] [phone] Phone Care Team Providers Care Motor Coach Tour Operator Name Role Phone Sukhwinder Diaz MD Primary Care Provider + Encounter Details Date Type Department Care Team ([facility] st Contact Info) Description 04/29/2023 Procedure Pass [facility] Cardio EP Device Monitoring [address] [place] [address] Social History Tobacco Use Types Packs/Day Years [...] st Contact Info) Description 11/01/2022 Procedure Pass [facility] Cardio EP Device Monitoring [address] [place] [address] 02/04/2023 Procedure Pass [facility] Cardio EP Device Monitoring [address] [place] [address] 04/29/2023 Procedure Pass [facility] Cardio EP Device Monitoring [address] [place] [address] 08/05/2023 Procedure Pass [facility] Cardio EP Device Monitoring [address] [place] [address] 11/04/2023 Procedure Pass [facility] Cardio EP Device Monitoring [address] [place] [address] 02/03/2024 Procedure Pass [facility] Cardio EP Device Monitoring [address] [place] [address] 05/04/2024 Procedure Pass [facility] Cardio EP Device Monitoring [address] [place] [address] 08/03/2024 Procedure Pass [facility] Cardio EP Device Monitoring [address] [place] [address] 11/02/2024 Procedure Pass [facility] Cardio EP Device Monitoring [address] [place] [address] 02/01/2025 Procedure Pass [facility] Cardio EP Device Monitoring [address] [place] [address] 02/01/2025 Procedure Pass [facility] Cardio EP Device Monitoring [address] [place] [address] 05/17/2025 9:30 AM EST Appointment [facility] Cardio EP Device Monitoring [address] [place] [address] Robbie Solis MD [address] [place] [address] [place] [address] 08/16/2025 8:30 AM EST Appointment [facility] Cardio EP Device Monitoring [address] [place] [address] Robbie Solis MD [address] [place] [address] [place] [address] [email or web address] documented as of this encounter Visit Diagnoses Not on filedocumented in this encounter Additional Health Concerns Assessment Noted Time PHQ-2 Depression Total Score: 0 03/13/20 10:53 AM EDT documented as of this encounter Care Teams Motor Coach Tour Operator Relationship Specialty Start Date End Date Sukhwinder Diaz MD [address] [place] [phone] PCP - General Internal Medicine 12/28/20 documented as of this encounter Additional Source Comments The information contained in this document represents components of the legal health record. It is not the complete legal health record.[facility]
--- OUTSIDE RECORDS SUMMARY | 2025-02-24 13:27 | XMS_ITS | Clinical Summary ---
Author Organization [facility] [address] [place] [address] [place] [phone] Phone Care Team Providers Care Doughnut Icer Name Role Phone Sukhwinder Diaz MD Primary Care Provider [phone] Allergies Active Allergy Reactions Criticality Noted Date Comments Egg Nausea And Vomiting 04/25/2008 Flecainide Numbness High 05/16/2024 Sulfa (Sulfonamide Antibiotics) Hives Medium 08/2004 Medications albuterol HFA (PROAIR HFA ; PROVENTIL HFA ; VENTOLIN HFA) 90 mcg/actuation inhaler 11/09/19 21 Active iron/calcium/vit oconnell D2 (CALCIUM 600 IRON/D ORAL) Take 1 Tablet by mouth 2 Times Daily. Active clotrimazole-bet amethasone (LOTRISONE) 1-0.05 % cream Apply sparingly twice daily for up to 2 weeks 11/15/19 20 Active UNABLE TO FIND CPAP Historical (HISTORICAL CPAP) Active hydroxychloroqui ne (PLAQUENIL) 200 mg tablet Take 1 tablet (200 mg total) by mouth 2 (two) times a day. 05/29/20 21 Active multivitamin (MULTIPLE VITAMINS ORAL) Take 1 tablet by mouth daily. Active nystatin (MYCOSTATIN) 100,000 unit/gram powder Apply to affected area four times daily for 10 days 11/15/19 20 Active perfluorohexyloc tane, PF, (Miebo, PF,) 100 % drops Administer 1 drop into affected eye(s) 4 (four) times a day. Active cycloSPORINE (RESTASIS) 0.05 % ophthalmic emulsion Administer 1 drop into both eyes 2 (two) times a day. Active clindamycin (CLEOCIN T) 1 % lotion APPLY TWICE DAILY TO LEFT AXILLAE UNTIL CLEAR 03/04/20 24 Active Xarelto 20 mg tabletIndication s:Paroxysmal atrial fibrillation (CMS/HCC V24, CMS/HCC V28) TAKE 1 TABLET BY MOUTH EVERY DAY 90 tablet 1 11/16/19 25 Active sotaloL (BETAPACE) 120 mg tablet TAKE 1 TABLET BY MOUTH 2 TIMES A DAY. 180 tablet 1 02/15/20 25 Active torsemide (DEMADEX) 10 mg tablet TAKE 1 TABLET BY MOUTH DAILY. MAY NEED TO TAKE ADDITIONAL 10 MGS FOR WORSENING LOWER LEG EDEMA 90 tablet 1 02/15/20 25 Active omeprazole (PriLOSEC) [address] capsule TAKE 1 CAPSULE BY MOUTH EVERY DAY 90 capsule 02/16/20 25 Active omeprazole (PriLOSEC) [address] capsule TAKE 1 CAPSULE BY MOUTH EVERY DAY 90 capsule 1 10/21/19 25 025 Discontinued torsemide (DEMADEX) 10 mg tablet TAKE 1 TABLET BY MOUTH DAILY. MAY NEED TO TAKE ADDITIONAL 10 MGS FOR WORSENING LOWER LEG EDEMA 90 tablet 11/16/19 25 025 Discontinued sotaloL (BETAPACE) 120 mg tablet Take 1 tablet (120 mg total) by mouth 2 (two) times a day. 180 tablet 11/16/19 25 025 Discontinued Active Problems Problem Noted Date Diagnosed Date Essential (primary) hypertension 09/14/2024 Varicose veins of calf 03/17/2024 SSS (sick sinus syndrome) (CMS/HCC V24, CMS/HCC V28) 08/06/2022 Overview (05/16/2024): Dual-chamber Medtronic device with a 3830 RV lead placed in the septum. Last Assessment & Plan: Status post dual-chamber Medtronic pacemaker at the [facility]. Working well. Maintaining sinus rhythm. Continue remote monitoring to the [facility]. Assessment & Plan (01/03/2025 3:51 PM EDT): Pacemaker continues to function normally. Continue monitoring. Pacemaker 07/29/2022 Nonrheumatic mitral valve regurgitation 11/27/19 Thoracic aortic aneurysm without rupture ([facility]/ C V24) 11/26/2021 Overview (05/16/2024): Last Assessment & Plan: Mild enlargement of the thoracic aorta. No indication for monitoring currently. We will repeat an echocardiogram next year. Palpitations 02/06/2021 Overview (05/16/2024): Palpitations Tachycardia 02/06/2021 Overview (05/16/2024): Tachycardia Snoring 08/23/2020 Venous insufficiency 07/19/2018 Obstructive sleep apnea 04/17/2017 Overview (05/16/2024): [facility] Home Polysomnogram: Date 03/27/2017; AHI 7, Unclassified apneas 0; Obstructive apneas 9; Central apneas 0; Mixed apneas 0; hypopneas 38; average oxygen saturation 90% (lowest 66% with saturations <88% for 5% or more of study) [facility] Sleep Center Polysomnogram: Date 09/10/2020; Wt 215#; [...] heart failure with p reserved ejection fraction ([facility] V24, [facility] V28) 10/26/2015 Overview (05/16/2024): HFpEF with preserved [...] renal function. Continue pacemaker follow-up at the [facility]. Continue anticoagulation with Xarelto. Assessment & Plan [...] (05/16/2024): Osteopenia on BMD 2006. Prednisone Rx 2007-. Alendronate 04/30-01/01. BMD 2018: some what better Rheumatoid arthritis (CMS/HCC V24, CMS/HCC V28) 02/15/2010 Overview (05/16/2024): 2006 with PMR like presentation; RF,CCP Ab negative. Hydroxychloroquine 2008. Eye exam 01/2010, 07/2010, 01/30, 07/03, 01/31,02/01, 02/02. 02/03, 03/08,03/09, 05/11, 07/2020 Vitamin D deficiency 07/10/2009 Uterovaginal prolapse 09/11/2006 Allergic rhinitis 06/02/2006 Obesity, unspecified 03/24/2005 Encounters Date Type Department Care Team Description 01/03/2025 2:30 PM EDT Office Visit [facility] - [address] [place] [address] Tyler Cerda MD Atrial fibrillation, unspecified type (CMS/HCC V24, CMS/HCC V28) (Primary Dx); Chronic heart failure with preserved ejection fraction (CMS/HCC V24, CMS/HCC V28); SSS (sick sinus syndrome) (CMS/HCC V24, CMS/HCC V28) 12/20/2024 9:01 AM EDT - 12/20/2024 11:59 PM EDT Hospital Encounter Radiology Department - [address] [place] [address] Abnormal mammogram Discharge Disposition: Home or Self Care from Last 3 Months Immunizations Name Administration [...] HISTORICAL COLONOSCOPY CARPAL TUNNEL RELEASE 08/2013 PROCEDURE: RI NEUROPLASTY &/TRANSPOS MEDIAN NRV CARPAL TUNNE; COMMENT: [...] benign-many yrs ago OTHER SURGICAL HISTORY PROCEDURE: RI OTHER CAROTID STENT IPSIL TIA/STRK 120 DAYS/>; COMMENT: cardiac ablations x 5; last perfomed 04/2021 PACEMAKER IMPLANT PROCEDURE: HISTORICAL PACEMAKER; COMMENT: 2022 Medical History Medical History Date Comments Allergic rhinitis, cause unspecified 06/02/2006 DX:Allergic rhinitis, cause unspecified Polymyalgia rheumatica ([facility] V24) 02/07/2008 DX:Polymyalgia rheumatica (HCC); COMMENT: Onset 2006; prednisone responsive Polymyalgia rheumatica ([facility] V24) 02/07/2008 DX:Polymyalgia rheumatica (HCC); COMMENT: Onset 2006; CCP Ab and RF negative; prednisone responsive Patient noncompliance 12/04/2010 DX:Patient noncompliance Paroxysmal atrial fibrillati on ([facility] V24, [facility] V28) 12/04/2014 DX:Paroxysmal atrial fibril lation (HCC); [...] Care Team (Late st Contact Info) Description 03/16/2025 11:30 AM EDT Office Visit Internal Medicine - [address] [phone] Sukhwinder Diaz MD [address] [place] [address] 03/17/2025 11:00 AM EDT Office Visit Internal Medicine - [address] [phone] Sukhwinder Diaz MD [address] [place] [address] 05/02/2025 1:00 PM EST Office Visit Vascular Surgery - [place] [address] [place] [address] Evelyn Garcia PA [address] [place] [address] Health Maintenance Due Date Last Done Comments Zoster Vaccines (1 of 2) 1973 RSV Immunization Adult Patients (1 - Risk 60-74 years 1-dose series) 2014 Colorectal Cancer Screening: Colonoscopy 05/31/2022 07/22/2016 Medicare Annual Wellness Visit 05/31/2022 Social Influencers of Health Screening 05/31/2022 COVID-19 Vaccine ( season) 2025 04/24/2022, 06/11/2021, 10/12/2020, Additional history exists Influenza Vaccine (#1) 2025 Falls Risk Assessment 09/14/2025 09/14/2024 Hypertension/CHF/CAD Annual BMP Blood Test 01/10/2026 01/10/2025, 09/02/2024, 03/17/2024, Additional history exists Breast Cancer Screening 12/20/2026 12/21/19, 06/28/2024, 12/22/2023, [...] Procedure Name Priority Date/Time Associated Diagnosis Comments CBC WITH AUTO DIFFERENTIAL Routine 01/10/2025 1:29 PM EDT Rheumatoid arthritis of multiple sites without rheumatoid factor (CMS/HCC V24, CMS/HCC V28) Trigger index finger of right hand C-REACTIVE PROTEIN Routine 01/10/2025 1: 29 PM EDT Rheumatoid arthritis of multiple sites without rheumatoid factor (CMS/HCC V24, CMS/HCC V28) Trigger index finger of right hand CBC AND DIFFERENTIAL Routine 01/10/2025 1:29 PM EDT Rheumatoid arthritis of multiple sites without rheumatoid factor (CMS/HCC V24, CMS/HCC V28) Trigger index finger of right hand COMPREHENSIVE METABOLIC PANEL Routine 01/10/2025 1:29 PM EDT Rheumatoid arthritis of multiple sites without rheumatoid factor (CMS/HCC V24, CMS/HCC V28) Trigger index finger of right hand SEDIMENTATION RATE Routine 01/10/2025 1: 29 PM EDT Rheumatoid arthritis of multiple sites without rheumatoid factor (CMS/HCC V24, CMS/HCC V28) Trigger index finger of right hand ECG 12-LEAD Routine 01/03/2025 3:52 PM EDT Atrial fibrillation, unspecified type (CMS/HCC V24, CMS/HCC V28) MG MAMMO DIGITAL DIAGNOSTIC W DONTE BILAT Routine 12/20/2024 9:09 AM EDT Abnormal mammogram LIPID PANEL Routine 03/17/2024 DEPRESSION SCREENING Routine 09/10/2023 DXA BONE DENSITY STUDY 1+ SITS AXIAL SKEL Routine 07/02/2023 11:06 AM EST Other specified disorders of bone density and structure, unspecified site HEPATITIS C SCREENING Routine 02/11/2017 COLONOSCOPY Routine 07/22/2016 from Last 3 Months or Most Recently Relevant to Health Maintenance Results * CBC auto differential (01/10/2025 1:29 PM EDT) WBC 5.8 4.8 - 10.8 K/mcL LAB HEMETOLOGY METHOD 01/10/2025 2:31 PM EDT [facility] RBC 4.00 3.80 - 4.80 M/mcL LAB HEMETOLOGY METHOD 01/10/2025 2:31 PM EDT [facility] Hemoglobin 12.7 11.5 - 16.0 g/dL LAB HEMETOLOGY METHOD 01/10/2025 2:31 PM EDT [facility] Hematocrit 38.4 35.0 - 47.0 % LAB HEMETOLOGY METHOD 01/10/2025 2:31 PM EDT [facility] MCV 96.7 79.0 - 98.0 FL LAB HEMETOLOGY METHOD [facility]10[facility]25 [facility] MCH 32.0 27.0 - 32.0 pcg LAB HEMETOLOGY METHOD 01/10/2025 2:31 PM EDT [facility] MCHC 33.1 32.0 - 37.0 g/dL LAB HEMETOLOGY METHOD 01/10/2025 2:31 [facility] RDW 12.8 11.0 - 15.0 % LAB HEMETOLOGY METHOD 01/10/2025 2:31 PM [facility] Platelets 245 130 - 400 K/mcL LAB HEMETOLOGY METHOD 01/10/2025 2:31 [facility] MPV 9.9 7.0 - 11.0 FL LAB HEMETOLOGY METHOD 01/10/2025 2:31 [facility] NRBC 0.0 <1.0 % LAB HEMETOLOGY METHOD 01/10/2025 2:31 PM [facility] NRBC Absolute 0.00 <0.10 K/mcL LAB HEMETOLOGY METHOD 01/10/2025 2:31 PM [facility] Neutrophils Relative 63.5 % LAB HEMETOLOGY METHOD 01/10/2025 2:31 PM EDT [facility] Lymphocytes Relative 17.2 % LAB HEMETOLOGY METHOD 01/10/2025 2:31 PM [facility] Monocytes Relative 14.3 % LAB HEMETOLOGY METHOD 01/10/2025 2:31 PM [facility] Eosinophils Relative 3.3 % LAB HEMETOLOGY METHOD 01/10/2025 2:31 PM EDT [facility] Basophils Relative 1.4 % LAB HEMETOLOGY METHOD 01/10/2025 2:31 PM EDT [facility] Immature Granulocytes Relative 0.3 % LAB HEMETOLOGY METHOD 01/10/2025 2:31 PM EDT [facility] Neutrophils Absolute 3.69 1.50 - 7.00 K/mcL LAB HEMETOLOGY METHOD 01/10/2025 2:31 PM EDT [facility] Lymphocytes Absolute 1.00 1.00 - 5.00 K/mcL LAB HEMETOLOGY METHOD 01/10/2025 2:31 PM EDT [facility] Monocytes Absolute 0.83 0.20 - 1.00 K/mcL LAB HEMETOLOGY METHOD 01/10/2025 2:31 PM EDT [facility] Eosinophils Absolute 0.19 0.00 - 0.50 K/mcL LAB HEMETOLOGY METHOD 01/10/2025 2:31 PM EDT [facility] Basophils Absolute 0.08 0.00 - 0.20 K/mcL LAB HEMETOLOGY METHOD 01/10/2025 2:31 PM EDT [facility] Immature Granulocytes Absolute 0.02 0.00 - 0.03 K/mcL LAB HEMETOLOGY METHOD 01/10/2025 2:31 PM EDT [facility] Blood Venous blood specimen / Unknown Venipuncture / Unknown 01/10/2025 1:29 PM EDT 01/10/2025 1:29 PM EDT us Lizzie Zaragoza MD LAB BLOOD ORDERABLES Final Resu lt [facility] [address] [place] [address], * Sedimentation rate (01/10/2025 1:29 PM EDT) Sed Rate 13 0 - 30 mm/hr LAB HEMETOLOGY METHOD 01/10/2025 2:39 PM EDT [facility] Blood Venous blood specimen / Unknown Venipuncture / Unknown 01/10/2025 1:29 PM EDT 01/10/2025 1:29 PM EDT Lizzie Zaragoza MD LAB BLOOD ORDERABLES Final Resu lt Performing Organization Address [facility]/ZIP Co de Phone Number [facility] [address] [place] [address], [place] [phone] * C-reactive protein (01/10/2025 1:29 PM EDT) [facility] C-Reactive Protein 0.47 <=0.50 mg/dL LAB CHEMISTRY METHOD 01/10/2025 7:45 PM EDT [facility] Blood Venous blood specimen / Unknown Venipuncture / Unknown 01/10/2025 1:29 PM EDT 01/10/2025 1:29 PM EDT us Lizzie Zaragoza MD LAB BLOOD ORDERABLES Final Resu lt Performing Organization Address [facility]/ZIP Co de Phone Number [facility] [address] [place] [address], [place] [phone] * Comprehensive metabolic panel (01/10/2025 1:29 PM EDT) [facility] Sodium 141 133 - 145 mmol/L LAB CHEMISTRY METHOD 01/10/2025 7:44 PM EDT [facility] Potassium 4.1 3.5 - 5.5 mmol/L LAB CHEMISTRY METHOD 01/10/2025 7:44 PM EDT [facility] Chloride 107 96 - 110 mmol/L LAB CHEMISTRY METHOD 01/10/2025 7:44 PM EDT [facility] CO2 31 21 - 32 mmol/L LAB CHEMISTRY METHOD 01/10/2025 7:44 PM EDT [facility] Anion Gap 3 3 - 11 LAB CHEMISTRY METHOD 01/10/2025 7:44 PM [facility] Glucose 86 70 - 100 mg/dL LAB CHEMISTRY METHOD 01/10/2025 7:44 PM [facility] BUN 16 5 - 25 mg/dL LAB CHEMISTRY METHOD 01/10/2025 7:44 PM [facility] Creatinine 0.87 0.50 - 1.10 mg/dL LAB CHEMISTRY METHOD 01/10/2025 7:44 PM [facility] eGFR 72 >=60 mL/min/1. 73m2 LAB CHEMISTRY METHOD 01/10/2025 7:44 PM [facility] Comment:Calculation based on the Chronic Kidney Disease Epidemiology Collaboration (CKD-EPI) equation refit without adjustment for race. BUN/Creatinine Ratio 18.4 LAB CHEMISTRY METHOD 01/10/2025 7:44 PM [facility] Calcium 9.8 8.5 - 10.5 mg/dL LAB CHEMISTRY METHOD 01/10/2025 7:44 PM [facility] AST (SGOT) 22 10 - 42 unit/L LAB CHEMISTRY METHOD 01/10/2025 7:44 PM [facility] ALT (SGPT) 29 10 - 60 unit/L LAB CHEMISTRY METHOD 01/10/2025 7:44 PM [facility] Alkaline Phosphatase 105 42 - 121 unit/L LAB CHEMISTRY METHOD 01/10/2025 7:44 PM [facility] Total Protein 7.2 6.0 - 8.0 g/dL LAB CHEMISTRY METHOD 01/10/2025 7:44 PM [facility] Albumin 3.8 3.2 - 5.0 g/dL LAB CHEMISTRY METHOD 01/10/2025 7:44 PM [facility] Total Bilirubin 0.4 0.0 - 1.4 mg/dL LAB CHEMISTRY METHOD 01/10/2025 7:44 PM EDT [facility] Blood Venous blood specimen / Unknown Venipuncture / Unknown 01/10/2025 1:29 PM EDT 01/10/2025 1:29 PM EDT Lizzie Zaragoza MD LAB BLOOD ORDERABLES Final Resu lt [facility]) [facility] [address] [place] [address], [place] [phone] * ECG 12 lead (01/03/2025 3:52 PM EDT) Ventricular Rate ECG 60 BPM GEMUSE Atrial Rate 60 BPM GEMUSE P-R Interval 154 ms GEMUSE QRS Duration 100 ms GEMUSE Q-T Interval 508 ms GEMUSE QTc 508 ms GEMUSE P Wave Corning 62 degrees GEMUSE R Corning 65 degrees GEMUSE T Corning 59 degrees GEMUSE ECG Interpretation Atrial-paced rhythm Prolonged QT Abnormal ECG When compared with ECG of 08-NOV-2020 07:58, Electronic atrial pacemaker has replaced Sinus rhythm Confirmed by Sheldon CERDA JOHN ([id number]) on 01/05/2025 4:17:42 PM GEMUSE 01/03/2025 3:24 PM EDT 01/05/2025 4:17 PM EDT us Tyler Cerda MD ECG ORDERABLES Edited Result - Final Performing Organization Address City/[facility]/ZIP Co de Phone Number GEMUSE * MG Mammo Digital Diagnostic w Donte bilat (12/20/2024 9:09 AM EDT) Anatomical Region Laterality Modality Breast Bilateral Mammography 12/20/2024 9:20 AM EDT Impressions 12/20/2024 9:53 AM EDT No mammographic evidence for malignancy. BI-RADS CATEGORY: 1 - NEGATIVE RECOMMENDATION: Screening bilateral mammogram is recommended in 1 year. Mammo Location: [place] [facility], [address] [place] [address], [phone], . -------- FINAL REPORT -------- Dictated By: Jenni Loving Dictated Date: 12/20/2024 09:20 ET Assigned Physician: Jenni Loving Reviewed and Electronically Signed By: Jenni Loving Signed Date: 12/20/2024 09:53 ET Workstation ID: [id number] Transcribed By: Self Edit Transcribed Date: 12/20/2024 [...] is recommended in 1 year. Mammo Location: [place] [facility], [address] [place] [address], [phone], . -------- FINAL REPORT -------- Dictated By: Jenni Loving Dictated Date: 12/20/2024 09:20 ET Assigned Physician: Jenni Loving Reviewed and Electronically Signed By: Jenni Loving Signed Date: 12/20/2024 09:53 ET Workstation ID: [id number] Transcribed By: Self Edit Transcribed Date: 12/20/2024 09:20 ET Sukhwinder Diaz MD IMG BI PROCEDURES Final Result * Lipid panel (03/17/2024) LDL/HDL Ratio 2 0 - 4 Triglycerides 82 0 - 150 mg/dL Cholesterol 166 0 - 200 mg/dL HDL 71 >=40 mg/dL LDL Cholesterol 79 0 - 100 mg/dL Blood Venous blood specimen / Unknown Historical Provider LAB BLOOD ORDERABLES Marlene l Result * Depression Screening (09/10/2023) Pathologist [facility] Depression Screening abstracted Historical Provider HEALTH MAINTENANCE Final Result * [...] (World Health Organization Fracture Risk Assessment) [facility] Department of Internal Medicine recommends using National [...] alternative screening schedule based on jayla Alejandro., [facility] July 10, 2011 for patients [...] years. (World HealthOrganization Fracture Risk Assessment) [facility] Department of Internal Medicine recommendsusing National Osteoporosis [...] alternative screening schedule based on jayla Alejandro., [facility] for patients with osteopenia (based on [...] Res ult * Hepatitis C Screening (02/11/2017) [facility] Hepatitis C Screening abstracted Historical Provider HEALTH MAINTENANCE Final Result * Colonoscopy (07/22/2016) [facility] Colonoscopy no interpretation , abstracted Anatomical Region Laterality Modality Other Historical Provider HEALTH MAINTENANCE Final Result from Last 3 Months or Most Recently Relevant to Health Maintenance Insurance MEDICARE [facility] Care Teams Doughnut Icer Relationship Specialty Start Date End Date Sukhwinder Diaz MD [address] [place] [phone] PCP - General Internal Medicine 05/08/20
--- OUTSIDE RECORDS SUMMARY | 2025-02-24 13:27 | XMS_ITS | Encounter Summary ---
Author Organization [facility] Address [address] [place] [phone] Phone Care Team Providers Care Blocker Hand Name Role Phone Sukhwinder iDaz MD Primary Care Provider + Encounter Details Date Type Department Care Team (Late st Contact Info) Description 04/30/2021 Procedure Pass [facility] EKG [address] [place] [address] Social History Tobacco Use Types Packs/Day Years [...] st Contact Info) Description 11/01/2022 Procedure Pass [facility] Cardio EP Device Monitoring [address] [place] [address] 02/04/2023 Procedure Pass [facility] Cardio EP Device Monitoring [address] [place] [address] 04/29/2023 Procedure Pass [facility] Cardio EP Device Monitoring [address] [place] [address] 08/05/2023 Procedure Pass [facility] Cardio EP Device Monitoring [address] [place] [address] 11/04/2023 Procedure Pass [facility] Cardio EP Device Monitoring [address] [place] [address] 02/03/2024 Procedure Pass [facility] Cardio EP Device Monitoring [address] [place] [address] 05/04/2024 Procedure Pass [facility] Cardio EP Device Monitoring [address] [place] [address] 08/03/2024 Procedure Pass [facility] Cardio EP Device Monitoring [address] [place] [address] 11/02/2024 Procedure Pass [facility] Cardio EP Device Monitoring [address] [place] [address] 02/01/2025 Procedure Pass [facility] Cardio EP Device Monitoring [address] [place] [address] 02/01/2025 Procedure Pass [facility] Cardio EP Device Monitoring [address] [place] [address] 05/17/2025 9:30 AM EST Appointment [facility] Cardio EP Device Monitoring [address] [place] [address] Robbie Solis MD [address] [place] [address] [place] [address] [email or web address] 08/16/2025 8:30 AM EST Appointment [facility] Cardio EP Device Monitoring [address] [place] [address] Robbie Solis MD [address] [place] [phone] documented as of this encounter Visit Diagnoses Not on filedocumented in this encounter Additional Health Concerns Infection Onset Date Last Indicated Resolved Time CoV-Risk Comment:Per note documentation 07/17/2022 07/17/2022 3 12:43 AM EST Assessment Noted Time PHQ-2 Depression Total Score: 0 03/13/20 21 10:53 AM EDT documented as of this encounter Care Teams Blocker Hand Relationship Specialty Start Date End Date Sukhwinder Diaz MD [address] [place] [address] PCP - General Internal Medicine 12/28/20 documented as of this encounter Additional Source Comments The information contained in this document represents components of the legal health record. It is not the complete legal health record.[facility]
--- OUTSIDE RECORDS SUMMARY | 2025-02-24 13:27 | XMS_ITS | Encounter Summary ---
Author Organization [facility] Address [address] [place] [address] Phone Care Team Providers Care Under Cutting Machine Operator Name Role Phone Sukhwinder Diaz MD Primary Care Provider + Encounter Details Date Type Department Care Team (Late st Contact Info) Description 03/18/2021 Procedure Pass [facility] Electrophysiology Lab [address] [place], [place] [id number] Social History Tobacco Use Types Packs/Day Years [...] st Contact Info) Description 11/01/2022 Procedure Pass [facility] Cardio EP Device Monitoring [address] [place] [address] 02/04/2023 Procedure Pass [facility] Cardio EP Device Monitoring [address] [place] [address] 04/29/2023 Procedure Pass [facility] Cardio EP Device Monitoring [address] [place] [address] 08/05/2023 Procedure Pass [facility] Cardio EP Device Monitoring [address] [place] [address] 11/04/2023 Procedure Pass [facility] Cardio EP Device Monitoring [address] [place] [address] 02/03/2024 Procedure Pass [facility] Cardio EP Device Monitoring [address] [place] [address] 05/04/2024 Procedure Pass [facility] Cardio EP Device Monitoring [address] [place] [address] 08/03/2024 Procedure Pass [facility] Cardio EP Device Monitoring [address] [place] [address] 11/02/2024 Procedure Pass [facility] Cardio EP Device Monitoring [address] [place] [address] 02/01/2025 Procedure Pass [facility] Cardio EP Device Monitoring [address] [place] [address] 02/01/2025 Procedure Pass [facility] Cardio EP Device Monitoring [address] [place] [address] 05/17/2025 9:30 AM EST Appointment [facility] Cardio EP Device Monitoring [address] [place] [address] Robbie Solis MD [address] [place] [address] [place] [address] [email or web address] 08/16/2025 8:30 AM EST Appointment [facility] Cardio EP Device Monitoring [address] [place] [address] Robbie Solis MD [address] [place] [address] documented as of this encounter Visit Diagnoses Not on filedocumented in this encounter Additional Health Concerns Infection Onset Date Last Indicated Resolved Time CoV-Risk Comment:Per note documentation 07/17/2022 07/17/2022 12:43 AM EST Assessment Noted Time PHQ-2 Depression Total Score: 0 03/13/20 21 10:53 AM EDT documented as of this encounter Care Teams Under Cutting Machine Operator Relationship Specialty Start Date End Date Sukhwinder Diaz MD [address] [place] [id number] PCP - General Internal Medicine 12/28/20 documented as of this encounter Additional Source Comments The information contained in this document represents components of the legal health record. It is not the complete legal health record.[facility]
--- OUTSIDE RECORDS SUMMARY | 2025-02-24 13:27 | XMS_ITS | Encounter Summary ---
Author Organization [facility] Address [address] [place] [address] Phone Care Team Providers Care Sheep Sorter Name Role Phone Sukhwinder Diaz MD Primary Care Provider + Encounter Details Date Type Department Care Team ([facility] st Contact Info) Description 02/04/2023 Procedure Pass [facility] Cardio EP Device Monitoring [address] [place] [address] Social History Tobacco Use Types Packs/Day Years [...] st Contact Info) Description 11/01/2022 Procedure Pass [facility] Cardio EP Device Monitoring [address] [place] [address] 02/04/2023 Procedure Pass [facility] Cardio EP Device Monitoring [address] [place] [address] 04/29/2023 Procedure Pass [facility] Cardio EP Device Monitoring [address] [place] [address] 08/05/2023 Procedure Pass [facility] Cardio EP Device Monitoring [address] [place] [address] 11/04/2023 Procedure Pass [facility] Cardio EP Device Monitoring [address] [place] [address] 02/03/2024 Procedure Pass [facility] Cardio EP Device Monitoring [address] [place] [address] 05/04/2024 Procedure Pass [facility] Cardio EP Device Monitoring [address] [place] [address] 08/03/2024 Procedure Pass [facility] Cardio EP Device Monitoring [address] [place] [address] 11/02/2024 Procedure Pass [facility] Cardio EP Device Monitoring [address] [place] [address] 02/01/2025 Procedure Pass [facility] Cardio EP Device Monitoring [address] [place] [address] 02/01/2025 Procedure Pass [facility] Cardio EP Device Monitoring [address] [place] [address] 05/17/2025 9:30 AM EST Appointment [facility] Cardio EP Device Monitoring [address] [place] [address] Robbie Solis MD [address] [place] [address] Card[place] [address] 08/16/2025 8:30 AM EST Appointment [facility] Cardio EP Device Monitoring [address] [place] [address] Robbie Solis MD [address] [place] [address] [place] [address] [email or web address] documented as of this encounter Visit Diagnoses Not on filedocumented in this encounter Additional Health Concerns Assessment Noted Time PHQ-2 Depression Total Score: 0 03/13/20 10:53 AM EDT documented as of this encounter Care Teams Sheep Sorter Relationship Specialty Start Date End Date Sukhwinder Diaz MD [address] [place] [id number] PCP - General Internal Medicine 12/28/20 documented as of this encounter Additional Source Comments The information contained in this document represents components of the legal health record. It is not the complete legal health record.[facility]
--- OUTSIDE RECORDS SUMMARY | 2025-02-24 13:28 | XMS_ITS | Encounter Summary ---
Author Organization [facility] Address [address] [place] [address] Phone Care Team Providers Care Automotive Parts Counter Person Name Role Phone Sukhwinder Diaz MD Primary Care Provider + Reason for Referral * Consultation (Within 3 days (urgent)) - Closed Specialty Diagnoses / Procedures Referred By Azul t Referred To Contact Tasia Miller MD, MS Phone: tel: fax: mailto:[email or web address] [phone] Phone: tel: Referral ID Status Reason Start Date Expiration Date Visits Re quested Visits Authorized [id number] Closed 04/16/2021 04/16/2022 1 1 Encounter Details Date Type Department Care Team (Late st Contact Info) Description 04/16/2021 Telephone [facility] Electrophysiology Lab [address] [place] [address] Earline Holcomb, SAMMIE [address] [place] [phone] [email or web address] Social History Tobacco Use Types Packs/Day Years [...] st Contact Info) Description 11/01/2022 Procedure Pass [facility] Cardio EP Device Monitoring [address] [place] [address] 02/04/2023 Procedure Pass [facility] Cardio EP Device Monitoring [address] [place] [address] 04/29/2023 Procedure Pass [facility] Cardio EP Device Monitoring [address] [place] [address] 08/05/2023 Procedure Pass [facility] Cardio EP Device Monitoring [address] [place] [address] 11/04/2023 Procedure Pass [facility] Cardio EP Device Monitoring [address] [place] [address] 02/03/2024 Procedure Pass [facility] Cardio EP Device Monitoring [address] [place] [address] 05/04/2024 Procedure Pass [facility] Cardio EP Device Monitoring [address] [place] [address] 08/03/2024 Procedure Pass [facility] Cardio EP Device Monitoring [address] [place] [address] 11/02/2024 Procedure Pass [facility] Cardio EP Device Monitoring [address] [place] [address] 02/01/2025 Procedure Pass [facility] Cardio EP Device Monitoring [address] [place] [address] 02/01/2025 Procedure Pass [facility] Cardio EP Device Monitoring [address] [place] [address] 05/17/2025 9:30 AM EST Appointment [facility] Cardio EP Device Monitoring [address] [place] [address] Robbie Solis MD [address] [place] [address] [place] [address] 08/16/2025 8:30 AM EST Appointment [facility] Cardio EP Device Monitoring [address] [place] [address] Robbie Solis MD [address] [place] [address] [place] [address] [email or web address] Scheduled Referrals Name Type Priority Associated Diagnoses Order Schedule Ambulatory referral to [facility] Urgent COVID Testing (ED) Outpatient Referral Routine Ordered: 04/16/2021 documented as of this encounter Visit Diagnoses Not on filedocumented in this encounter Additional Health Concerns Infection Onset Date Last Indicated Resolved Time CoV-Risk Comment:Per note documentation 07/17/2022 07/17/2022 3 12:43 AM EST Assessment Noted Time PHQ-2 Depression Total Score: 0 03/13/20 21 10:53 AM EDT documented as of this encounter Care Teams Automotive Parts Counter Person Relationship Specialty Start Date End Date Sukhwinder Diaz MD [address] [place] [address] PCP - General Internal Medicine 12/28/20 documented as of this encounter Additional Source Comments The information contained in this document represents components of the legal health record. It is not the complete legal health record.[facility]
--- OUTSIDE RECORDS SUMMARY | 2025-02-24 13:28 | XMS_ITS | Encounter Summary ---
Author Organization [facility] Address [address] [place] [address] Phone Care Team Providers Care Railroad Wheels And Axles Inspector Name Role Phone Sukhwinder Diaz MD Primary Care Provider + Reason for Referral * MRI/CAT Scan - Closed Specialty Diagnoses / Procedures Referred By Azul hernandez Referred To Contact Radiology Diagnoses Paroxysmal atrial fibrillation Procedures CT 3D Reconstruction CT Angio Chest Tasia Miller MD, MS Phone: tel: fax: mailto:[email or web address] Referral ID Status Reason Start Date Expiration Date Visits Re quested Visits Authorized [id number] Closed 04/22/2021 04/22/2022 1 1 Encounter Details Date Type Department Care Team (Latest Contact Info) Description 04/22/2021 Ancillary Orders [facility] Cardiovascular Clinic [address] [place] [address] Tasia Miller MD, MS [address] [facility] [address] [place] [address] [email or web address] Paroxysmal atrial fibrillation Social History Tobacco Use Types Packs/Day Years [...] 6:40 PM EDT Ana Summers, SAMMIE * [place] Suicide Severity Rating Scale (Screener/Recent Self-Report) Question Answer Date of Assessment Author 1. Wish to be (Past 1 Month) No 021 6:40 PM EDT Ana Summers RN 2. Non-Specific Active Suici jani Thoughts (Past 1 Month) No 04/23/2021 6:40 PM EDT Ana Summers, SAMMIE 6. Suicidal Behavior (Lifetime) No 6:40 PM EDT Ana Summers RN documented as of this encounter Plan of Treatment Upcoming Encounters Date Type Department Care Team (Late st Contact Info) Description 11/01/2022 Procedure Pass [facility] Cardio EP Device Monitoring [address] [place] [address] 02/04/2023 Procedure Pass [facility] Cardio EP Device Monitoring [address] [place] [address] 04/29/2023 Procedure Pass [facility] Cardio EP Device Monitoring [address] [place] [address] 08/05/2023 Procedure Pass [facility] Cardio EP Device Monitoring [address] [place] [address] 11/04/2023 Procedure Pass [facility] Cardio EP Device Monitoring [address] [place] [address] 02/03/2024 Procedure Pass [facility] Cardio EP Device Monitoring [address] [place] [address] 05/04/2024 Procedure Pass [facility] Cardio EP Device Monitoring [address] [place] [address] 08/03/2024 Procedure Pass [facility] Cardio EP Device Monitoring [address] [place] [address] 11/02/2024 Procedure Pass [facility] Cardio EP Device Monitoring [address] [place] [address] 02/01/2025 Procedure Pass [facility] Cardio EP Device Monitoring [address] [place] [address] 02/01/2025 Procedure Pass [facility] Cardio EP Device Monitoring [address] [place] [address] 05/17/2025 9:30 AM EST Appointment [facility] Cardio EP Device Monitoring [address] [place] [address] Robbie Solis MD [address] [place] [address] [place] [address] [email or web address] 08/16/2025 8:30 AM EST Appointment [facility] Cardio EP Device Monitoring [address] [place] [address] Robbie Solis MD [address] [place] [phone] [email or web address] documented as of this encounter Results * CT 3D Reconstruction CT Angio Chest (04/22/2021 1:43 PM EDT) Anatomical Region Laterality Modality Chest Computed Tomogra phy 04/22/2021 3:14 PM EDT Impressions 04/22/2021 5:23 PM EDT 1. There are 3 right pulmonary veins, including top pulmonary veins. 2 left pulmonary veins with a common trunk. 2. Esophagus courses midline closest to the left pulmonary vein trunk. 3. There is no left atrial appendage thrombus. ATTESTATION: Madi Johnson, as teaching physician have reviewed the images, if any, for this patient's exam, and if necessary, have edited the report originally created by Magno Rdz. Narrative 04/22/2021 5:23 PM EDT Reason for exam (per EHR order): * Atrial fibrillation pre or post ablation Additional clinical information obtained from the EHR: 65 y.o. female with atrial fibrillation for ablation. Rule out KARLIE thrombus and assess PV anatomy TECHNIQUE: Cardiac CT Angiography TECHNIQUE: CT Angiography Scans: Angiogram - ECG gated Cardiac Delay (60 sec) - ECG gated Cardiac Oral contrast: None. Intravenous contrast: 75 mL 3D Post-processing: MIPS COMPARISON: None. FINDINGS: CARDIAC: Pulmonary Veins: There are 3 right pulmonary veins, including a top pulmonary vein. Left common trunk with 2 left pulmonary veins. The esophagus courses midline closest to the left pulmonary vein trunk. Left atrial appendage: No evidence of thrombus. Other Cardiac Findings: Coronary Arteries: This study was not optimized for the assessment of the coronary arteries. However, mild coronary artery calcification was noted. Chambers: Moderate left atrial dilation. Severe right atrial dilation. Myocardium: Normal thickness. No out-pouchings or masses. Valves: No leaflet thickening or calcifications. Pericardium: No pericardial effusion, calcification or thickening. Aorta: There is no aortic rupture, aneurysm, dissection, intramural hematoma, or perivascular inflammation. Pulmonary arteries: Mildly dilated pulmonary artery Non-Cardiac Findings: Multiple tiny lung nodules, no follow-up is required. Procedure Note Madi Martin MD - 04/22/2021 Reason for exam (per EHR order): * Atrial fibrillation pre or postablation Additional clinical information obtained from the EHR: 65 y.o. female withatrial fibrillation for ablation. Rule out KARLIE thrombus and assess PVanatomy TECHNIQUE: Cardiac CT Angiography TECHNIQUE: CT Angiography Scans: Angiogram - ECG gated Cardiac Delay (60 sec) - ECG gated Cardiac Oral contrast: None. Intravenous contrast: 75 mL 3D Post-processing: MIPS COMPARISON: None. FINDINGS: CARDIAC: Pulmonary Veins: There are 3 right pulmonary veins, including a toppulmonary vein. Left common trunk with 2 left pulmonary veins. The esophagus courses midline closest to the left pulmonary vein trunk. Left atrial appendage: No evidence of thrombus. Other Cardiac Findings: Coronary Arteries: This study was not optimized for the assessment of thecoronary arteries. However, mild coronary artery calcification wasnoted. Chambers: Moderate left atrial dilation. Severe right atrial dilation. Myocardium: Normal thickness. No out-pouchings or masses. Valves: No leaflet thickening or calcifications. Pericardium: No pericardial effusion, calcification or thickening. Aorta: There is no aortic rupture, aneurysm, dissection, intramuralhematoma, or perivascular inflammation. Pulmonary arteries: Mildly dilated pulmonary artery Non-Cardiac Findings: Multiple tiny lung nodules, no follow-up isrequired. IMPRESSION: 1. There are 3 right pulmonary veins, including top pulmonary veins. 2left pulmonary veins with a common trunk. 2. Esophagus courses midline closest to the left pulmonary vein trunk. 3. There is no left atrial appendage thrombus. ATTESTATION: Madi Johnson, as teaching physician have reviewed theimages, if any, for this patient's exam, and if necessary, have edited thereport originally created by Magno Rdz. us Tasia Miller MD, MS IMG CT Final Resul t documented in this encounter Visit Diagnoses Diagnosis Paroxysmal atrial fibrillation Atrial fibrillation Paroxysmal atrial fibrillation Atrial fibrillation documented in this encounter Additional Health Concerns Infection Onset Date Last Indicated Resolved Time CoV-Risk Comment:Per note documentation 07/17/2022 07/17/2022 3 12:43 AM EST Assessment Noted Time PHQ-2 Depression Total Score: 0 03/13/20 21 10:53 AM EDT documented as of this encounter Care Teams Railroad Wheels And Axles Inspector Relationship Specialty Start Date End Date Sukhwinder Diaz MD [address] [place] [address] PCP - General Internal Medicine 12/28/20 documented as of this encounter Additional Source Comments The information contained in this document represents components of the legal health record. It is not the complete legal health record.[facility]
--- OUTSIDE RECORDS SUMMARY | 2025-02-24 13:28 | XMS_ITS | Encounter Summary ---
Author Organization [facility] Address [address] [place] [phone] Phone Care Team Providers Care Sorter Laundry Articles Name Role Phone Sukhwinder Diaz MD Primary Care Provider + Encounter Details Date Type Department Care Team (Late st Contact Info) Description 11/01/2022 Procedure Pass [facility] Cardio EP Device Monitoring [address] [place] [address] Social History Tobacco Use Types Packs/Day Years Used Date Smoking Tobacco: Never Smokeless Tobacco: Never Education Answer Date Recorded Are you interested in more education? Not on debora e 10/18/2022 Are you concerned about learning? Not on file 10/18/2022 No 10/18/2022 No 10/18/2022 Intimate Partner Violence Answer Date R ecorded [...] st Contact Info) Description 11/01/2022 Procedure Pass [facility] Cardio EP Device Monitoring [address] [place] [address] 02/04/2023 Procedure Pass [facility] Cardio EP Device Monitoring [address] [place] [address] 04/29/2023 Procedure Pass [facility] Cardio EP Device Monitoring [address] [place] [address] 08/05/2023 Procedure Pass [facility] Cardio EP Device Monitoring [address] [place] [address] 11/04/2023 Procedure Pass [facility] Cardio EP Device Monitoring [address] [place] [address] 02/03/2024 Procedure Pass [facility] Cardio EP Device Monitoring [address] [place] [address] 05/04/2024 Procedure Pass [facility] Cardio EP Device Monitoring [address] [place] [address] 08/03/2024 Procedure Pass [facility] Cardio EP Device Monitoring [address] [place] [address] 11/02/2024 Procedure Pass [facility] Cardio EP Device Monitoring [address] [place] [address] 02/01/2025 Procedure Pass [facility] Cardio EP Device Monitoring [address] [place] [address] 02/01/2025 Procedure Pass [facility] Cardio EP Device Monitoring [address] [place] [address] 05/17/2025 9:30 AM EST Appointment [facility] Cardio EP Device Monitoring [address] [place] [address] Robbie Solis MD [address] [place] [address] [place] [address] 08/16/2025 8:30 AM EST Appointment [facility] Cardio EP Device Monitoring [address] [place] [address] Robbie Solis MD [address] [place] [address] [place] [address] documented as of this encounter Visit Diagnoses Not on filedocumented in this encounter Additional Health Concerns Assessment Noted Time PHQ-2 Depression Total Score: 0 03/13/20 10:53 AM EDT documented as of this encounter Care Teams Sorter Laundry Articles Relationship Specialty Start Date End Date Sukhwinder Diaz MD [address] [place] [address] PCP - General Internal Medicine 12/28/20 documented as of this encounter Additional Source Comments The information contained in this document represents components of the legal health record. It is not the complete legal health record.[facility]
--- OUTSIDE RECORDS SUMMARY | 2025-02-24 13:28 | XMS_ITS | Encounter Summary ---
Author Organization [facility] Address [address] [place] [address] Phone Care Team Providers Care Deckhand Oyster Dredge Name Role Phone Sukhwinder Diaz MD Primary Care Provider + Encounter Details Date Type Department Care Team (Late Contact Info) Description 07/28/2022 Procedure Pass [facility] Cardio EP Device Monitoring [address] [place] [address] Social History Tobacco Use Types Packs/Day Years Used Date Smoking Tobacco: Never Smokeless Tobacco: Never Intimate Partner Violence Answer Date R ecorded [...] Encounters Date Type Department Care Team (Late Contact Info) Description 11/01/2022 Procedure Pass [facility] Cardio EP Device Monitoring [address] [place] [address] 02/04/2023 Procedure Pass [facility] Cardio EP Device Monitoring [address] [place] [address] 04/29/2023 Procedure Pass [facility] Cardio EP Device Monitoring [address] [place] [address] 08/05/2023 Procedure Pass [facility] Cardio EP Device Monitoring [address] [place] [address] 11/04/2023 Procedure Pass [facility] Cardio EP Device Monitoring [address] [place] [address] 02/03/2024 Procedure Pass [facility] Cardio EP Device Monitoring [address] [place] [address] 05/04/2024 Procedure Pass [facility] Cardio EP Device Monitoring [address] [place] [address] 08/03/2024 Procedure Pass [facility] Cardio EP Device Monitoring [address] [place] [address] 11/02/2024 Procedure Pass [facility] Cardio EP Device Monitoring [address] [place] [address] 02/01/2025 Procedure Pass [facility] Cardio EP Device Monitoring [address] [place] [address] 02/01/2025 Procedure Pass [facility] Cardio EP Device Monitoring [address] [place] [address] 05/17/2025 9:30 AM EST Appointment [facility] Cardio EP Device Monitoring [address] [place] [address] Robbie Solis MD [address] [place] [address] [place] [address] 08/16/2025 8:30 AM EST Appointment [facility] Cardio EP Device Monitoring [address] [place] [address] Robbie Solis MD [address] [place] [address] [place] [address] documented as of this encounter Visit Diagnoses Not on filedocumented in this encounter Additional Health Concerns Assessment Noted Time PHQ-2 Depression Total Score: 0 03/13/20 10:53 AM EDT documented as of this encounter Care Teams Deckhand Oyster Dredge Relationship Specialty Start Date End Date Sukhwinder Diaz MD [address] [place] [address] PCP - General Internal Medicine 12/28/20 documented as of this encounter Additional Source Comments The information contained in this document represents components of the legal health record. It is not the complete legal health record.[facility]
--- OUTSIDE RECORDS SUMMARY | 2025-02-24 13:28 | XMS_ITS | Encounter Summary ---
Author Organization [facility] Address [address] [place] [phone] Phone Care Team Providers Care Web Content Coordinator Name Role Phone Sukhwinder Diaz MD Primary Care Provider + Encounter Details Date Type Department Care Team (Late st Contact Info) Description 08/03/2024 Procedure Pass [facility] Cardio EP Device Monitoring [address] [place] [address] Social History Tobacco Use Types Packs/Day Years [...] st Contact Info) Description 11/01/2022 Procedure Pass [facility] Cardio EP Device Monitoring [address] [place] [address] 02/04/2023 Procedure Pass [facility] Cardio EP Device Monitoring [address] [place] [address] 04/29/2023 Procedure Pass [facility] Cardio EP Device Monitoring [address] [place] [address] 08/05/2023 Procedure Pass [facility] Cardio EP Device Monitoring [address] [place] [address] 11/04/2023 Procedure Pass [facility] Cardio EP Device Monitoring [address] [place] [address] 02/03/2024 Procedure Pass [facility] Cardio EP Device Monitoring [address] [place] [address] 05/04/2024 Procedure Pass [facility] Cardio EP Device Monitoring [address] [place] [address] 08/03/2024 Procedure Pass [facility] Cardio EP Device Monitoring [address] [place] [address] 11/02/2024 Procedure Pass [facility] Cardio EP Device Monitoring [address] [place] [address] 02/01/2025 Procedure Pass [facility] Cardio EP Device Monitoring [address] [place] [address] 02/01/2025 Procedure Pass [facility] Cardio EP Device Monitoring [address] [place] [address] 05/17/2025 9:30 AM EST Appointment [facility] Cardio EP Device Monitoring [address] [place] [address] Robibe Solis MD [address] [place] [address] [place] [address] 08/16/2025 8:30 AM EST Appointment [facility] Cardio EP Device Monitoring [address] [place] [address] Robbie Solis MD [address] [place] [address] [place] [address] [email or web address] documented as of this encounter Visit Diagnoses Not on filedocumented in this encounter Additional Health Concerns Assessment Noted Time PHQ-2 Depression Total Score: 0 03/13/20 10:53 AM EDT documented as of this encounter Care Teams Web Content Coordinator Relationship Specialty Start Date End Date Sukhwinder Diaz MD [address] [place] [id number] PCP - General Internal Medicine 12/28/20 documented as of this encounter Additional Source Comments The information contained in this document represents components of the legal health record. It is not the complete legal health record.[facility]
--- OUTSIDE RECORDS SUMMARY | 2025-02-24 13:28 | XMS_ITS | Encounter Summary ---
Author Organization [facility] Address [address] [place] [address] Phone Care Team Providers Care Dev Ops Engineer Name Role Phone Sukhwindre Diaz MD Primary Care Provider + Encounter Details Date Type Department Care Team (Late st Contact Info) Description 03/15/2021 Procedure Pass [facility] [address] [place] [address] Social History Tobacco Use Types Packs/Day Years [...] st Contact Info) Description 11/01/[address] [facility] Cardio EP Device Monitoring [address] [place] [address] 02/04/[address] [facility] Cardio EP Device Monitoring [address] [place] [address] 04/29/[address] [facility] Cardio EP Device Monitoring [address] [place] [address] 08/05/[address] [facility] Cardio EP Device Monitoring [address] [place] [address] 11/04/[address] [facility] Cardio EP Device Monitoring [address] [place] [address] 02/03/[address] [facility] Cardio EP Device Monitoring [address] [place] [address] 05/04/[address] [facility] Cardio EP Device Monitoring [address] [place] [address] 08/03/[address] [facility] Cardio EP Device Monitoring [address] [place] [address] 11/02/[address] [facility] Cardio EP Device Monitoring [address] [place] [address] 02/01/[address] [facility] Cardio EP Device Monitoring [address] [place] [address] 02/01/[address] [facility] Cardio EP Device Monitoring [address] [place] [address] 05/17/2025 9:[address] [facility] Cardio EP Device Monitoring [address] [place] [address] Robbie Solis MD [address] [place] [address] [place] [address] [email or web address] 08/16/2025 8:[address] [facility] Cardio EP Device Monitoring [address] [place] [address] Robbie Solis MD [address] [place] [address] documented as of this encounter Visit Diagnoses Not on filedocumented in this encounter Additional Health Concerns Infection Onset Date Last Indicated Resolved Time CoV-Risk Comment:Per note documentation 07/17/2022 07/17/2022 12:43 AM EST Assessment Noted Time PHQ-2 Depression Total Score: 0 03/13/20 21 10:53 AM EDT documented as of this encounter Care Teams Dev Ops Engineer Relationship Specialty Start Date End Date Sukhwinder Diaz MD [address] [place] [address] PCP - General Internal Medicine 12/28/20 documented as of this encounter Additional Source Comments The information contained in this document represents components of the legal health record. It is not the complete legal health record.[facility]
--- OUTSIDE RECORDS SUMMARY | 2025-02-24 13:28 | XMS_ITS | Encounter Summary ---
Author Organization [facility] Address [address] [place] [address] Phone Care Team Providers Care Insurance Marketing Specialist Name Role Phone Sukhwinedr Diaz MD Primary Care Provider + Encounter Details Date Type Department Care Team ([facility] st Contact Info) Description 05/04/2024 Procedure Pass [facility] Cardio EP Device Monitoring [address] [place] [address] Social History Tobacco Use Types Packs/Day Years [...] st Contact Info) Description 11/01/2022 Procedure Pass [facility] Cardio EP Device Monitoring [address] [place] [address] 02/04/2023 Procedure Pass [facility] Cardio EP Device Monitoring [address] [place] [address] 04/29/2023 Procedure Pass [facility] Cardio EP Device Monitoring [address] [place] [address] 08/05/2023 Procedure Pass [facility] Cardio EP Device Monitoring [address] [place] [address] 11/04/2023 Procedure Pass [facility] Cardio EP Device Monitoring [address] [place] [address] 02/03/2024 Procedure Pass [facility] Cardio EP Device Monitoring [address] [place] [address] 05/04/2024 Procedure Pass [facility] Cardio EP Device Monitoring [address] [place] [address] 08/03/2024 Procedure Pass [facility] Cardio EP Device Monitoring [address] [place] [address] 11/02/2024 Procedure Pass [facility] Cardio EP Device Monitoring [address] [place] [address] 02/01/2025 Procedure Pass [facility] Cardio EP Device Monitoring [address] [place] [address] 02/01/2025 Procedure Pass [facility] Cardio EP Device Monitoring [address] [place] [address] 05/17/2025 9:30 AM EST Appointment [facility] Cardio EP Device Monitoring [address] [place] [address] Robbie Solis MD [address] [place] [address] [place] [address] 08/16/2025 8:30 AM EST Appointment [facility] Cardio EP Device Monitoring [address] [place] [address] Robbie Solis MD [address] [place] [address] [place] [address] [email or web address] documented as of this encounter Visit Diagnoses Not on filedocumented in this encounter Additional Health Concerns Assessment Noted Time PHQ-2 Depression Total Score: 0 03/13/20 10:53 AM EDT documented as of this encounter Care Teams Insurance Marketing Specialist Relationship Specialty Start Date End Date Sukhwinder Diaz MD [address] [place] [phone] PCP - General Internal Medicine 12/28/20 documented as of this encounter Additional Source Comments The information contained in this document represents components of the legal health record. It is not the complete legal health record.[facility]
--- OUTSIDE RECORDS SUMMARY | 2025-02-24 13:28 | XMS_ITS | Encounter Summary ---
Author Organization [facility] Address [address] [place] [phone] Phone Care Team Providers Care Financial Services Specialist Name Role Phone Sukhwinder Diaz MD Primary Care Provider + Encounter Details Date Type Department Care Team ([facility] st Contact Info) Description 11/02/2024 Procedure Pass [facility] Cardio EP Device Monitoring [address] [place] [address] Social History Tobacco Use Types Packs/Day Years [...] st Contact Info) Description 11/01/2022 Procedure Pass [facility] Cardio EP Device Monitoring [address] [place] [address] 02/04/2023 Procedure Pass [facility] Cardio EP Device Monitoring [address] [place] [address] 04/29/2023 Procedure Pass [facility] Cardio EP Device Monitoring [address] [place] [address] 08/05/2023 Procedure Pass [facility] Cardio EP Device Monitoring [address] [place] [address] 11/04/2023 Procedure Pass [facility] Cardio EP Device Monitoring [address] [place] [address] 02/03/2024 Procedure Pass [facility] Cardio EP Device Monitoring [address] [place] [address] 05/04/2024 Procedure Pass [facility] Cardio EP Device Monitoring [address] [place] [address] 08/03/2024 Procedure Pass [facility] Cardio EP Device Monitoring [address] [place] [address] 11/02/2024 Procedure Pass [facility] Cardio EP Device Monitoring [address] [place] [address] 02/01/2025 Procedure Pass [facility] Cardio EP Device Monitoring [address] [place] [address] 02/01/2025 Procedure Pass [facility] Cardio EP Device Monitoring [address] [place] [address] 05/17/2025 9:30 AM EST Appointment [facility] Cardio EP Device Monitoring [address] [place] [address] Robbie Solis MD [address] [place] [address] [place] [address] 08/16/2025 8:30 AM EST Appointment [facility] Cardio EP Device Monitoring [address] [place] [address] Robbie Solis MD [address] [place] [address] [place] [address] [email or web address] documented as of this encounter Visit Diagnoses Not on filedocumented in this encounter Additional Health Concerns Assessment Noted Time PHQ-2 Depression Total Score: 0 03/13/20 10:53 AM EDT documented as of this encounter Care Teams Financial Services Specialist Relationship Specialty Start Date End Date Sukhwinder Diaz MD [address] [place] [phone] PCP - General Internal Medicine 12/28/20 documented as of this encounter Additional Source Comments The information contained in this document represents components of the legal health record. It is not the complete legal health record.[facility]
--- OUTSIDE RECORDS SUMMARY | 2025-02-24 13:28 | XMS_ITS | Encounter Summary ---
Author Organization [facility] Address [address] [place] [phone] Phone Care Team Providers Care Medical Claims Analyst Name Role Phone Sukhwinder Diaz MD Primary Care Provider + Encounter Details Date Type Department Care Team (Late Contact Info) Description 07/28/2022 Procedure Pass [facility] Cardio EP Device Monitoring [address] [place] [address] Social History Tobacco Use Types Packs/Day Years [...] Pass [facility] Cardio EP Device Monitoring [address] [place] [address] 02/04/2023 Procedure Pass [facility] Cardio EP Device Monitoring [address] [place] [address] 04/29/2023 Procedure Pass [facility] Cardio EP Device Monitoring [address] [place] [address] 08/05/2023 Procedure Pass [facility] Cardio EP Device Monitoring [address] [place] [address] 11/04/2023 Procedure Pass [facility] Cardio EP Device Monitoring [address] [place] [address] 02/03/2024 Procedure Pass [facility] Cardio EP Device Monitoring [address] [place] [address] 05/04/2024 Procedure Pass [facility] Cardio EP Device Monitoring [address] [place] [address] 08/03/2024 Procedure Pass [facility] Cardio EP Device Monitoring [address] [place] [address] 11/02/2024 Procedure Pass [facility] Cardio EP Device Monitoring [address] [place] [address] 02/01/2025 Procedure Pass [facility] Cardio EP Device Monitoring [address] [place] [address] 02/01/2025 Procedure Pass [facility] Cardio EP Device Monitoring [address] [place] [address] 05/17/2025 9:30 AM EST Appointment [facility] Cardio EP Device Monitoring [address] [place] [address] Robbie Solis MD [address] [place] [address] [place] [address] [email or web address] 08/16/2025 8:30 AM EST Appointment [facility] Cardio EP Device Monitoring [address] [place] [address] Robbie Solis MD [address] [place] [address] [place] [address] [email or web address] documented as of this encounter Visit Diagnoses Not on filedocumented in this encounter Additional Health Concerns Assessment Noted Time PHQ-2 Depression Total Score: 0 03/13/20 10:53 AM EDT documented as of this encounter Care Teams Medical Claims Analyst Relationship Specialty Start Date End Date Sukhwinder Diaz MD [address] [place] [address] PCP - General Internal Medicine 12/28/20 documented as of this encounter Additional Source Comments The information contained in this document represents components of the legal health record. It is not the complete legal health record.[facility]
--- OUTSIDE RECORDS SUMMARY | 2025-02-24 13:29 | XMS_ITS | Encounter Summary ---
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 Name Role Phone Sukhwinder Diaz MD Primary Care Provider + Encounter Details Date Type Department Care Team (Latest Contact Info) Description 07/28/2022 Transcribe Orders [facility] [address] [place] [id number] Orquidea Sims [address] [place] [address] [email or web address] Sick sinus syndrome (Primary Dx) Social History Tobacco Use Types Packs/Day Years [...] st Contact Info) Description 11/01/2022 Procedure Pass [facility] Cardio EP Device Monitoring [address] [place] [address] 02/04/2023 Procedure Pass [facility] Cardio EP Device Monitoring [address] [place] [address] 04/29/2023 Procedure Pass [facility] Cardio EP Device Monitoring [address] [place] [address] 08/05/2023 Procedure Pass [facility] Cardio EP Device Monitoring [address] [place] [address] 11/04/2023 Procedure Pass [facility] Cardio EP Device Monitoring [address] [place] [address] 02/03/2024 Procedure Pass [facility] Cardio EP Device Monitoring [address] [place] [address] 05/04/2024 Procedure Pass [facility] Cardio EP Device Monitoring [address] [place] [address] 08/03/2024 Procedure Pass [facility] Cardio EP Device Monitoring [address] [place] [address] 11/02/2024 Procedure Pass [facility] Cardio EP Device Monitoring [address] [place] [address] 02/01/2025 Procedure Pass [facility] Cardio EP Device Monitoring [address] [place] [address] 02/01/2025 Procedure Pass [facility] Cardio EP Device Monitoring [address] [place] [address] 05/17/2025 9:30 AM EST Appointment [facility] Cardio EP Device Monitoring [address] [place] [address] Robbie Solis MD [address] [place] [address] [place] [address] [email or web address] 08/16/2025 8:30 AM EST Appointment [facility] Cardio EP Device Monitoring [address] [place] [address] Robbie Solis MD [address] [place] [address] [place] [address] (work) [email or web address] Pending Results Name Type Priority Associated Diagnoses Date /Time EP Device Check / Follow Up Cardiac Monitors Routine Sick sinus syndrome 02/15/2025 9:13 AM EDT Scheduled Orders Name Type Priority Associated Diagnoses Orde r Schedule EP Device Check / Follow Up Cardiac Monitors Routine Sick sinus syndrome Other for 60 Occurrences starting 07/28/2022 until 06/21/2027, 9 completed documented as of this encounter Results * DEVICE CHECK: PPM IN-HOME INTERROGATION (11/16/2024 8:27 AM EDT) Date Time Interrogation Session [id number] 5+0000 [facility] eSilicon Implantable Pulse Generator Speaker Mounter Medtronic [facility] Implantable Pulse Generator Model [id number] [place] XT DR ZENG [facility] eSilicon Implantable Pulse Generator Serial Number [id number] [facility] Type Interrogation Session Remote Scheduled [facility] Clinic Name Cardiac Device Clinic [facility] Implantable Pulse Generator Type Pacemaker [facility] Jayce Setting Mode (NBG Code) MVP AAI DDD [facility] Jayce Setting Lower Rate Limit 60 {beats}/ min [facility] Jayce Setting Maximum Tracking Rate 130 {beats}/ min [facility] Jayce Setting Maximum Sensor Rate 130 {beats}/ min [facility] Jayce Setting Hysterisis Rate DISABLED [facility] Jayce Setting OPAL Delay Low 150 ms [facility] Jayce Setting PAV Delay Low 180 ms [facility] Jayce Setting AT Mode Switch Rate 171 {beats}/ min [facility] Lead Channel Setting Sensing Polarity Bipolar [facility] Lead Channel Setting Sensing Anode Location Right Atrium [facility] Lead Channel Setting Sensing Anode Terminal Ring [facility] Lead Channel Setting Sensing Cathode Location Right Atrium [facility] Lead Channel Setting Sensing Cath[place] Terminal Tip [facility] Lead Channel Setting Sensing Sensitivity 0.3 mV [facility] Lead Channel Setting Sensing Polarity Bipolar [facility] Lead Channel Setting Sensing Anode Location Right Ventricle [facility] Lead Channel Setting Sensing Anode Terminal Ring [facility] Lead Channel Setting Sensing Cath[place] Location Right Ventricle [facility] Lead Channel Setting Sensing [place] Terminal Tip [facility] Lead Channel Setting Sensing Sensitivity 0.9 mV [facility] Lead Channel Setting Pacing Polarity Bipolar [facility] Lead Channel Setting Pacing Anode Location Right Atrium [facility] Lead Channel Setting Pacing Anode Terminal Ring [facility] Lead Channel Setting Sensing [place] Location Right Atrium [facility] Lead Channel Setting Sensing [place] Terminal Tip [facility] Lead Channel Setting Pacing Pulse Width 0.4 ms [facility] Lead Channel Setting RA Pacing Amplitude 1.5 V [facility] Lead Channel Setting Pacing Capture Mode Adaptive [facility] Lead Channel Setting Pacing Polarity Bipolar [facility] Lead Channel Setting Pacing Anode Location Right Ventricle [facility] Lead Channel Setting Pacing Anode Terminal Ring [facility] Lead Channel Setting Sensing [place] Location Right Ventricle [facility] Lead Channel Setting Sensing [place] Terminal Tip [facility] Lead Channel Setting Pacing Pulse Width 0.4 ms [facility] Lead Channel Setting Pacing Amplitude 2.5 V [facility] Lead Channel Setting Pacing Capture Mode Adaptive [facility] Zone Setting Type Category VF [facility] Zone Setting Vendor Type Category V High Rate [facility] Zone Setting Type Category VT [facility] Zone Setting Vendor Type Category FastVT [facility] Zone Setting Type Category VT [facility] Zone Setting Vendor Type Category VT [facility] Zone Setting Type Category VT [facility] Zone Setting Vendor Type Category MonVT [facility] Zone Setting Status Monitor [facility] Zone Setting Detection Interval 400 ms [facility] Zone Setting Type Category ATRIAL_FIBRIL LATION [facility] Zone Setting Vendor Type Category FastATAF [facility] Zone Setting Type Category AT/AF [facility] Zone Setting Status Monitor [facility] Zone Setting Detection Interval 350 ms [facility] Atrial Impedance 437 ohm [facility] Atrial Impedance 361 ohm [facility] P Wave 1.625 mV [facility] P Wave 1.625 mV [facility] RA Threshold 0.5 V [facility] RA Threshold PW 0.4 ms [facility] RV Impedance 399 ohm [facility] RV Impedance 304 ohm [facility] R Wave 8.875 mV [facility] R Wave 8.875 mV [facility] RV Threshold 1.25 V [facility] RV Threshold PW 0.4 ms [facility] Battery Date Time of Measurements 2+ [facility] Battery Status OK [facility] Battery POSTING SPECIALIST Trigger 2.625 [facility] Battery Remaining Longevity 151 mo [facility] Battery Voltage 3.04 V [facility] Jayce Statistic Date Time Start 2+ [facility] Jayce Statistic Date Time End 5+ [facility] AP (%) 30.99 % [facility] SYSTEM TECHNOLOGIST (%) 0.45 % [facility] AP/SYSTEM TECHNOLOGIST % 0.14 % [facility] /SYSTEM TECHNOLOGIST % 0.11 % [facility] AP/VS % 34.3 % [facility] /VS % 65.51 % [facility] Atrial Tachy Statistic Date Time Start 2+ [facility] Atrial Tachy Statistic Date Time End 5+ [facility] Atrial Tachy Statistic AT/AF [place] Percent 10.1 % [facility] Therapy Statistic Recent Date Time Start 2+0000 [facility] Therapy Statistic Recent Date Time End 5+0000 [facility] Therapy Statistic Total Date Time Start 6+0000 [facility] Therapy Statistic Total Date Time End 5+0000 [facility] Episode Statistic Recent Count 2,694 [facility] Episode Statistic Type Category AT/AF [facility] Episode Statistic Recent Count 0 [facility] Episode Statistic Type Category Patient Activated [facility] Episode [facility]istic Recent Count 3 [facility] Episode Statistic Type Category SVT [facility] Episode [facility]istic Recent Count 0 [facility] Episode Statistic Type Category VT [facility] Episode Statistic Recent Count 0 [facility] Episode Statistic Type Category VT [facility] Episode Statistic Recent Date Time Start 2+0000 [facility] Episode Statistic Recent Date Time End 5+0000 [facility] Episode Statistic Recent Date Time Start 2+0000 [facility] Episode Statistic Recent Date Time End 5+0000 [facility] Episode Statistic Recent Date Time Start 2+0000 [facility] Episode Statistic Recent Date Time End [id number] 5+0000 [facility] Episode Statistic Recent Date Time Start 2+0000 [facility] Episode Statistic Recent Date Time End [id number] 5+0000 [facility] Episode Statistic Recent Date Time Start 2+0000 [facility] Episode Statistic Recent Date Time End [id number] 5+0000 [facility] Episode Statistic Total Count 66,646 [facility] Episode Statistic Type Category AT/AF [facility] Episode Statistic Total Count 0 [facility] Episode Statistic Type Category Patient Activated [facility] Episode Statistic Total Count 4 [facility] Episode Statistic Type Category SVT [facility] Episode Statistic Total Count 8 [facility] Episode Statistic Type Category VT [facility] Episode Statistic Total Count 0 [facility] Episode Statistic Type Category VT [facility] Episode Statistic Total Date Time Start 6+0000 [facility] Episode Statistic Total Date Time End [id number] 5+0000 [facility] Episode Statistic Total Date Time Start 6+0000 [facility] Episode Statistic Total Date Time End [id number] 5+0000 [facility] Episode Statistic Total Date Time Start 6+0000 [facility] Episode Statistic Total Date Time End 5+0000 [facility] Episode Statistic Total Date Time Start 6+0000 [facility] Episode Statistic Total Date Time End [id number] 5+0000 [facility] Episode Statistic Total Date Time Start [id number] 6+0000 [facility] Episode Statistic Total Date Time End [id number] 5+0000 [facility] Episode Identifier 532 [facility] Episode Type Category SVT [facility] Episode Date Time [id number] 7+0000 [facility] Episode Duration 29 s [facility] Episode Identifier 530 [facility] Episode Type Category SVT [facility] Episode Date Time [id number] 5+0000 [facility] Episode Duration 57 s [facility] Episode Identifier 529 [facility] Episode Type Category SVT [facility] Episode Date [facility] [id number] 5+0000 [facility] Episode Duration 10 s [facility] Episode Identifier 1124 [facility] Episode Type Category Monitor [facility] Episode Date Time [id number] 5+0000 [facility] Episode Duration 225 s [facility] Episode Identifier 1123 [facility] Episode Type Category Monitor [facility] Episode Date Time [id number] 0+0000 [facility] Episode Duration 1,278 s [facility] Episode Identifier 1122 [facility] Episode Type Category Monitor [facility] Episode Date Time [id number] 1+0000 [facility] Episode Duration 58 s [facility] Episode Identifier 1121 [facility] Episode Type Category Monitor [facility] Episode Date Time [id number] 2+0000 [facility] Episode Duration 858 s [facility] Episode Identifier 1120 [facility] Episode Type Category Monitor [facility] Episode Date Time [id number] 5+0000 [facility] Episode Duration 84 s [facility] Episode Identifier 1119 [facility] Episode Type Category Monitor [facility] Episode Date Time [id number] 2+0000 [facility] Episode Duration 67 s [facility] Episode Identifier 1118 [facility] Episode Type Category Monitor [facility] Episode Date Time [id number] 7+0000 [facility] Episode Duration 47 s [facility] Episode Identifier 1117 [facility] Episode Type Category Monitor [facility] Episode Date Time [id number] 6+0000 [facility] Episode Duration 60 s [facility] Episode Identifier 1116 [facility] Episode Type Category Monitor [facility] Episode Date Time [id number] 9+0000 [facility] Episode Duration 2,194 s [facility] Episode Identifier 1115 [facility] Episode Type Category Monitor [facility] Episode Date Time [id number] 0+0000 [facility] Episode Duration 26 s [facility] Episode Identifier 1114 [facility] Episode Type Category Monitor [facility] Episode Date Time [id number] 4+0000 [facility] Episode Duration 23 s [facility] Episode Identifier 1113 [facility] Episode Type Category Monitor [facility] Episode Date Time [id number] 0+0000 [facility] Episode Duration 103 s [facility] Episode Identifier 1112 [facility] Episode Type Category Monitor [facility] Episode Date Time [id number] 4+0000 [facility] Episode Duration 133 s [facility] Episode Identifier 1111 [facility] Episode Type Category Monitor [facility] Episode Date Time [id number] 0+0000 [facility] Episode Duration 457 s [facility] Episode Identifier 1110 [facility] Episode Type Category Monitor [facility] Episode Date [facility] [id number] 9+0000 [facility] Episode Duration 643 s [facility] Episode Identifier 1109 [facility] Episode Type Category Monitor [facility] Episode Date Time [id number] 8+0000 [facility] Episode Duration 700 s [facility] Episode Identifier 1108 [facility] Episode Type Category Monitor [facility] Episode Date Time [id number] 9+0000 [facility] Episode Duration 2,078 s [facility] Episode Identifier 1107 [facility] Episode Type Category Monitor [facility] Episode Date Time [id number] 5+0000 [facility] Episode Duration 57 s [facility] Episode Identifier 1106 [facility] Episode Type Category Monitor [facility] Episode Date [facility] [id number] 7+0000 [facility] Episode Duration 31 s [facility] Episode Identifier 1105 [facility] Episode Type Category Monitor [facility] Episode Date Time [id number] 9+0000 [facility] Episode Duration 1,435 s [facility] Episode Identifier 1104 [facility] Episode Type Category Monitor [facility] Episode Date Time [id number] 6+0000 [facility] Episode Duration 714 s [facility] Episode Identifier 1103 [facility] Episode Type Category Monitor [facility] Episode Date Time [id number] 9+0000 [facility] Episode Duration 19 s [facility] Episode Identifier 1102 [facility] Episode Type Category Monitor [facility] Episode Date Time [id number] 6+0000 [facility] Episode Duration 128 s [facility] Episode Identifier 1101 [facility] Episode Type Category Monitor [facility] Episode Date Time [id number] 8+0000 [facility] Episode Duration 4,099 s [facility] Episode Identifier 1100 [facility] Episode Type Category Monitor [facility] Episode Date Time [id number] 9+0000 [facility] Episode Duration 713 s [facility] Episode Identifier 1099 [facility] Episode Type Category Monitor [facility] Episode Date Time [id number] 1+0000 [facility] Episode Duration 63 s [facility] Episode Identifier 1098 [facility] Episode Type Category Monitor [facility] Episode Date Time [id number] 0+0000 [facility] Episode Duration 44 s [facility] Episode Identifier 1097 [facility] Episode Type Category Monitor [facility] Episode Date Time [id number] 5+0000 [facility] Episode Duration 196 s [facility] Episode Identifier 1096 [facility] Episode Type Category Monitor [facility] Episode Date Time [id number] 8+0000 [facility] Episode Duration 2,549 s [facility] Episode Identifier 1095 [facility] Episode Type Category Monitor [facility] Episode Date Time [id number] 5+0000 [facility] Episode Duration 39 s [facility] Episode Identifier 1094 [facility] Episode Type Category Monitor [facility] Episode Date Time [id number] 0+0000 [facility] Episode Duration 296 s [facility] Episode Identifier 1093 [facility] Episode Type Category Monitor [facility] Episode Date Time [id number] 9+0000 [facility] Episode Duration 50 s [facility] Episode Identifier 1092 [facility] Episode Type Category Monitor [facility] Episode Date Time [id number] 9+0000 [facility] Episode Duration 92 s [facility] Episode Identifier 1091 [facility] Episode Type Category Monitor [facility] Episode Date Time [id number] 3+0000 [facility] Episode Duration 435 s [facility] Episode Identifier 1090 [facility] Episode Type Category Monitor [facility] Episode Date Time [id number] 5+0000 [facility] Episode Duration 803 s [facility] Episode Identifier 1089 [facility] Episode Type Category Monitor [facility] Episode Date Time [id number] 1+0000 [facility] Episode Duration 969 s [facility] Episode Identifier 1088 [facility] Episode Type Category Monitor [facility] Episode Date Time [id number] 2+0000 [facility] Episode Duration 694 s [facility] Episode Identifier 1087 [facility] Episode Type Category Monitor [facility] Episode Date Time [id number] 6+0000 [facility] Episode Duration 2,570 s [facility] Episode Identifier 1086 [facility] Episode Type Category Monitor [facility] Episode Date Time [id number] 3+0000 [facility] Episode Duration 928 s [facility] Episode Identifier 1085 [facility] Episode Type Category Monitor [facility] Episode Date [facility] [id number] 6+0000 [facility] Episode Duration 24 s [facility] Episode Identifier 1084 [facility] Episode Type Category Monitor [facility] Episode Date Time [id number] 6+0000 [facility] Episode Duration 1,243 s [facility] Episode Identifier 1083 [facility] Episode Type Category Monitor [facility] Episode Date Time [id number] 2+0000 [facility] Episode Duration 236 s [facility] Episode Identifier 1082 [facility] Episode Type Category Monitor [facility] Episode Date Time [id number] 4+0000 [facility] Episode Duration 151 s [facility] Episode Identifier 1081 [facility] Episode Type Category Monitor [facility] Episode Date Time [id number] 1+0000 [facility] Episode Duration 293 s [facility] Episode Identifier 1080 [facility] Episode Type Category Monitor [facility] Episode Date Time [id number] 9+0000 [facility] Episode Duration 2,194 s [facility] Episode Identifier 1079 [facility] Episode Type Category Monitor [facility] Episode Date Time [id number] 8+0000 [facility] Episode Duration 338 s [facility] Episode Identifier 1078 [facility] Episode Type Category Monitor [facility] Episode Date Time [id number] 7+0000 [facility] Episode Duration 809 s [facility] Episode Identifier 1077 [facility] Episode Type Category Monitor [facility] Episode Date Time [id number] 1+0000 [facility] Episode Duration 1,484 s [facility] Episode Identifier 1076 [facility] Episode Type Category Monitor [facility] Episode Date Time [id number] 0+0000 [facility] Episode Duration 2,882 s [facility] Episode Identifier 1075 [facility] Episode Type Category Monitor [facility] Episode Date Time [id number] 0+0000 [facility] Episode Duration 1,280 s [facility] 11/16/2024 2:34 AM EDT Narrative [facility] - 11/20/2024 5:22 PM EDT A remote CIED transmission was received and reviewed on the following patient: Patient Name Gisela Aguirre Summary Pacemaker Interrogation. All available lead measurements are stable. Events since last evaluation shows (3) AF w/RVR detection rates 160s <1min in duration. AF [place] 10% pt is on OAC Estimated battery longevity ~ 12.6 years. AP 31% SYSTEM TECHNOLOGIST 0.4% Recheck in 3 months. us Robbie Solis MD [facility] C[facility] ORD ERABLES Final Result [facility] [address] [place] [address] * DEVICE CHECK: PPM IN-HOME INTERROGATION (08/17/2024 7:55 AM EST) Date Time Interrogation Session [id number] 2+0000 [facility] [employer] Implantable Pulse Generator Speaker Mounter Medtronic [facility] [employer] Implantable Pulse Generator Model [id number] [place] XT DR MRI [facility] [employer] Implantable Pulse Generator Serial Number [id number] [facility] Type Interrogation Session Remote Scheduled [facility] Clinic Name Cardiac Device Clinic [facility] Implantable Pulse Generator Type Pacemaker [facility] [facility] Jayce Setting Mode (NBG Code) MVP AAI DDD [facility] Jayce Setting Lower Rate Limit 60 {beats}/ min [facility] Jayce Setting Maximum Tracking Rate 130 {beats}/ min [facility] Jayce Setting Maximum Sensor Rate 130 {beats}/ min [facility] Jayce Setting Hysterisis Rate DISABLED [facility] Jayce Setting OPAL Delay Low 150 ms [facility] Jayce Setting PAV Delay Low 180 ms [facility] Jayce Setting AT Mode Switch Rate 171 {beats}/ min [facility] Lead Channel Setting Sensing Polarity Bipolar [facility] Lead Channel Setting Sensing Anode Location Right Atrium [facility] Lead Channel Setting Sensing Anode Terminal Ring [facility] Lead Channel Setting Sensing Cath[place] Location Right Atrium [facility] Lead Channel Setting Sensing Cathode Terminal Tip [facility] Lead Channel Setting Sensing Sensitivity 0.3 mV [facility] Lead Channel Setting Sensing Polarity Bipolar [facility] Lead Channel Setting Sensing Anode Location Right Ventricle [facility] Lead Channel Setting Sensing Anode Terminal Ring [facility] Lead Channel Setting Sensing Cathode Location Right Ventricle [facility] Lead Channel Setting Sensing Cathode Terminal Tip [facility] Lead Channel Setting Sensing Sensitivity 0.9 mV [facility] Lead Channel Setting Pacing Polarity Bipolar [facility] Lead Channel Setting Pacing Anode Location Right Atrium [facility] Lead Channel Setting Pacing Anode Terminal Ring [facility] Lead Channel Setting Sensing Cath[place] Location Right Atrium [facility] Lead Channel Setting Sensing Cathode Terminal Tip [facility] Lead Channel Setting Pacing Pulse Width 0.4 ms [facility] Lead Channel Setting RA Pacing Amplitude 1.5 V [facility] Lead Channel Setting Pacing Capture Mode Adaptive [facility] Lead Channel Setting Pacing Polarity Bipolar [facility] Lead Channel Setting Pacing Anode Location Right Ventricle [facility] Lead Channel Setting Pacing Anode Terminal Ring [facility] Lead Channel Setting Sensing Cathode Location Right Ventricle [facility] Lead Channel Setting Sensing Cathode Terminal Tip [facility] Lead Channel Setting Pacing Pulse Width 0.4 ms [facility] Lead Channel Setting Pacing Amplitude 2.75 V [facility] Lead Channel Setting Pacing Capture Mode Adaptive [facility] Zone Setting Type Category VF [facility] Zone Setting Vendor Type Category V High Rate [facility] Zone Setting Type Category VT [facility] Zone Setting Vendor Type Category FastVT [facility] Zone Setting Type Category VT [facility] Zone Setting Vendor Type Category [place] [facility] Zone Setting Type Category [place] [facility] Zone Setting Vendor Type Category MonVT [facility] Zone Setting Status Monitor [facility] Zone Setting Detection Interval 400 ms [facility] Zone Setting Type Category ATRIAL_FIBRIL LATION [facility] Zone Setting Vendor Type Category FastATAF [facility] Zone Setting Type Category AT/AF [facility] Zone Setting Status Monitor [facility] Zone Setting Detection Interval 350 ms [facility] Atrial Impedance 418 ohm [facility] Atrial Impedance 342 ohm [facility] P Wave 2.125 mV [facility] P Wave 2.125 mV [facility] RA Threshold 0.5 V [facility] RA Threshold PW 0.4 ms [facility] RV Impedance 399 ohm [facility] RV Impedance 323 ohm [facility] R Wave 9.375 mV [facility] R Wave 9.375 mV [facility] RV Threshold 1.125 V [facility] RV Threshold PW 0.4 ms [facility] Battery Date Time of Measurements [facility] Battery Status OK [facility] Battery POSTING SPECIALIST Trigger 2.625 [facility] Battery Remaining Longevity 153 mo [facility] Battery Voltage 3.04 V [facility] Jayce Statistic Date Time Start [facility] Jayce Statistic Date Time End 2+ [facility] AP (%) 27.55 % [facility] SYSTEM TECHNOLOGIST (%) 0.75 % [facility] AP/SYSTEM TECHNOLOGIST % 0.24 % [facility] /SYSTEM TECHNOLOGIST % 0.16 % [facility] AP/VS % 32.2 % [facility] /VS % 67.5 % [facility] Atrial Tachy Statistic Date Time Start 6+ [facility] Atrial Tachy Statistic Date Time End 2+0000 [facility] Atrial Tachy Statistic AT/AF [place] Percent 15.8 % [facility] Therapy Statistic Recent Date Time Start 6+ [facility] Therapy Statistic Recent Date Time End 2+0000 [facility] Therapy Statistic Total Date Time Start [id number] 6+0000 [facility] Therapy Statistic Total Date Time End 2+0000 [facility] Episode Statistic Recent Count 4,845 [facility] Episode Statistic Type Category AT/AF [facility] Episode Statistic Recent Count 0 [facility] Episode Statistic Type Category Patient Activated [facility] Episode Statistic Recent Count 0 [facility] Episode Statistic Type Category SVT [facility] Episode Statistic Recent Count 0 [facility] Episode Statistic Type Category VT [facility] Episode Statistic Recent Count 0 [facility] Episode Statistic Type Category VT [facility] Episode Statistic Recent Date Time Start 6+0000 [facility] Episode Statistic Recent Date Time End 2+0000 [facility] Episode Statistic Recent Date Time Start 6+0000 [facility] Episode Statistic Recent Date Time End 2+0000 [facility] Episode Statistic Recent Date Time Start 6+0000 [facility] Episode Statistic Recent Date Time End 2+0000 [facility] Episode Statistic Recent Date Time Start 6+0000 [facility] Episode Statistic Recent Date Time End 2+0000 [facility] Episode Statistic Recent Date Time Start 6+0000 [facility] Episode Statistic Recent Date Time End 2+0000 [facility] Episode Statistic Total Count 63,952 [facility] Episode Statistic Type Category AT/AF [facility] Episode Statistic Total Count 0 [facility] Episode Statistic Type Category Patient Activated [facility] Episode Statistic Total Count 1 [facility] Episode Statistic Type Category SVT [facility] Episode Statistic Total Count 8 [facility] Episode Statistic Type Category VT [facility] Episode Statistic Total Count 0 [facility] Episode Statistic Type Category VT [facility] Episode Statistic Total Date Time Start 6+0000 [facility] Episode Statistic Total Date Time End 2+0000 [facility] Episode Statistic Total Date Time Start 6+0000 [facility] Episode Statistic Total Date Time End 2+0000 [facility] Episode Statistic Total Date Time Start 6+0000 [facility] Episode Statistic Total Date Time End 2+0000 [facility] Episode Statistic Total Date Time Start 6+0000 [facility] Episode Statistic Total Date Time End 2+0000 [facility] Episode Statistic Total Date Time Start 6+0000 [facility] Episode Statistic Total Date Time End 2+0000 [facility] Episode Identifier [id number] [facility] Episode Type Category Monitor [facility] Episode Date Time [id number] 2+0000 [facility] Episode Duration 165 s [facility] Episode Identifier 28194 [facility] Episode Type Category Monitor [facility] Episode Date Time [id number] 4+0000 [facility] Episode Duration 149 s [facility] Episode Identifier 20616 [facility] Episode Type Category Monitor [facility] Episode Date Time [id number] 0+0000 [facility] Episode Duration 98 s [facility] Episode Identifier 38018 [facility] Episode Type Category Monitor [facility] Episode Date Time [id number] 5+0000 [facility] Episode Duration 203 s [facility] Episode Identifier 57717 [facility] Episode Type Category Monitor [facility] Episode Date Time [id number] 8+0000 [facility] Episode Duration 32 s [facility] Episode Identifier 05392 [facility] Episode Type Category Monitor [facility] Episode Date Time [id number] 9+0000 [facility] Episode Duration 96 s [facility] Episode Identifier 33854 [facility] Episode Type Category Monitor [facility] Episode Date Time [id number] 7+0000 [facility] Episode Duration 24 s [facility] Episode Identifier 58572 [facility] Episode Type Category Monitor [facility] Episode Date Time [id number] 5+0000 [facility] Episode Duration 139 s [facility] Episode Identifier 09090 [facility] Episode Type Category Monitor [facility] Episode Date Time [id number] 6+0000 [facility] Episode Duration 63 s [facility] Episode Identifier 10668 [facility] Episode Type Category Monitor [facility] Episode Date Time [id number] 6+0000 [facility] Episode Duration 106 s [facility] Episode Identifier 59626 [facility] Episode Type Category Monitor [facility] Episode Date Time [id number] 3+0000 [facility] Episode Duration 26 s [facility] Episode Identifier 91767 [facility] Episode Type Category Monitor [facility] Episode Date Time [id number] 6+0000 [facility] Episode Duration 70 s [facility] Episode Identifier 45083 [facility] Episode Type Category Monitor [facility] Episode Date Time [id number] 6+0000 [facility] Episode Duration 27 s [facility] Episode Identifier 44900 [facility] Episode Type Category Monitor [facility] Episode Date Time [id number] 1+0000 [facility] Episode Duration 109 s [facility] Episode Identifier 85329 [facility] Episode Type Category Monitor [facility] Episode Date Time 0+0000 [facility] Episode Duration 30 s [facility] Episode Identifier 34126 [facility] Episode Type Category Monitor [facility] Episode Date Time [id number] 3+0000 [facility] Episode Duration 32 s [facility] Episode Identifier 75352 [facility] Episode Type Category Monitor [facility] Episode Date [facility] [id number] 4+0000 [facility] Episode Duration 28 s [facility] Episode Identifier 60894 [facility] Episode Type Category Monitor [facility] Episode Date Time [id number] 9+0000 [facility] Episode Duration 89 s [facility] Episode Identifier 31946 [facility] Episode Type Category Monitor [facility] Episode Date Time 3+0000 [facility] Episode Duration 155 s [facility] Episode Identifier 10858 [facility] Episode Type Category Monitor [facility] Episode Date Time [id number] 9+0000 [facility] Episode Duration 150 s [facility] Episode Identifier 61192 [facility] Episode Type Category Monitor [facility] Episode Date Time [id number] 9+0000 [facility] Episode Duration 146 s [facility] Episode Identifier 74655 [facility] Episode Type Category Monitor [facility] Episode Date Time [id number] 8+0000 [facility] Episode Duration 253 s [facility] Episode Identifier 30650 [facility] Episode Type Category Monitor [facility] Episode Date Time [id number] 3+0000 [facility] Episode Duration 190 s [facility] Episode Identifier 71240 [facility] Episode Type Category Monitor [facility] Episode Date Time [id number] 4+0000 [facility] Episode Duration 86 s [facility] Episode Identifier 58034 [facility] Episode Type Category Monitor [facility] Episode Date Time [id number] 5+0000 [facility] Episode Duration 306 s [facility] Episode Identifier 82739 [facility] Episode Type Category Monitor [facility] Episode Date Time [id number] 2+0000 [facility] Episode Duration 43 s [facility] Episode Identifier 36122 [facility] Episode Type Category Monitor [facility] Episode Date Time [id number] 8+0000 [facility] Episode Duration 139 s [facility] Episode Identifier 98238 [facility] Episode Type Category Monitor [facility] Episode Date Time [id number] 6+0000 [facility] Episode Duration 121 s [facility] Episode Identifier 12498 [facility] Episode Type Category Monitor [facility] Episode Date Time [id number] 1+0000 [facility] Episode Duration 32 s [facility] Episode Identifier 12737 [facility] Episode Type Category Monitor [facility] Episode Date Time [id number] 5+0000 [facility] Episode Duration 48 s [facility] Episode Identifier 51600 [facility] Episode Type Category Monitor [facility] Episode Date Time [id number] 9+0000 [facility] Episode Duration 49 s [facility] Episode Identifier 92631 [facility] Episode Type Category Monitor [facility] Episode Date [facility] [id number] 6+0000 [facility] Episode Duration 27 s [facility] Episode Identifier 07844 [facility] Episode Type Category Monitor [facility] Episode Date Time [id number] 4+0000 [facility] Episode Duration 26 s [facility] Episode Identifier 59341 [facility] Episode Type Category Monitor [facility] Episode Date Time [id number] 3+0000 [facility] Episode Duration 22 s [facility] Episode Identifier 25108 [facility] Episode Type Category Monitor [facility] Episode Date Time [id number] 6+0000 [facility] Episode Duration 24 s [facility] Episode Identifier 92474 [facility] Episode Type Category Monitor [facility] Episode Date Time [id number] 7+0000 [facility] Episode Duration 128 s [facility] Episode Identifier 05952 [facility] Episode Type Category Monitor [facility] Episode Date Time [id number] 4+0000 [facility] Episode Duration 19 s [facility] Episode Identifier 35277 [facility] Episode Type Category Monitor [facility] Episode Date Time [id number] 4+0000 [facility] Episode Duration 93 s [facility] Episode Identifier 97467 [facility] Episode Type Category Monitor [facility] Episode Date Time [id number] 8+0000 [facility] Episode Duration 22 s [facility] Episode Identifier 60212 [facility] Episode Type Category Monitor [facility] Episode Date Time [id number] 5+0000 [facility] Episode Duration 40 s [facility] Episode Identifier 58407 [facility] Episode Type Category Monitor [facility] Episode Date Time [id number] 5+0000 [facility] Episode Duration 26 s [facility] Episode Identifier 30412 [facility] Episode Type Category Monitor [facility] Episode Date Time [id number] 7+0000 [facility] Episode Duration 29 s [facility] Episode Identifier 21013 [facility] Episode Type Category Monitor [facility] Episode Date Time [id number] 1+0000 [facility] Episode Duration 24 s [facility] Episode Identifier 98784 [facility] Episode Type Category Monitor [facility] Episode [facility] Time [id number] 7+0000 [facility] Episode Duration 34 s [facility] Episode Identifier 08128 [facility] Episode Type Category Monitor [facility] Episode [facility] Time [id number] 8+0000 [facility] Episode Duration 19 s [facility] Episode Identifier 69082 [facility] Episode Type Category Monitor [facility] Episode [facility] Time 5+0000 [facility] Episode Duration 50 s [facility] Episode Identifier 90199 [facility] Episode Type Category Monitor [facility] Episode Date Time 7+0000 [facility] Episode Duration 29 s [facility] Episode Identifier 71057 [facility] Episode Type Category Monitor [facility] Episode Date Time 2+0000 [facility] Episode Duration 25 s [facility] Episode Identifier 00404 [facility] Episode Type Category Monitor [facility] Episode Date Time 6+0000 [facility] Episode Duration 26 s [facility] Episode Identifier 01468 [facility] Episode Type Category Monitor [facility] Episode Date Time 3+0000 [facility] Episode Duration 130 s [facility] 08/17/2024 2:03 AM EST Narrative [facility] - 08/19/2024 8:00 PM EST A remote CIED transmission was received and reviewed on the following patient: Patient Name Gisela Aguirre Summary Pacemaker Interrogation. All available lead measurements are stable. Events since last evaluation shows AF [place] 16% pt is on OAC. Estimated battery longevity ~ 12.8 years. AP 27% SYSTEM TECHNOLOGIST 0.8% Recheck in 3 months. us Robbie Solis MD [facility] ORD ERABLES Final Result [facility] [address] [place] [address] * DEVICE CHECK: PPM IN-HOME INTERROGATION (05/18/2024 9:05 AM EST) Date Time Interrogation Session [id number] 6+0000 [facility] Implantable Pulse Generator Speaker Mounter Medtronic [facility] eSilicon Implantable Pulse Generator Model [id number] [place] XT DR ZENG [facility] eSilicon Implantable Pulse Generator Serial Number [id number] [facility] Type Interrogation Session Remote Patient Initiated [facility] Clinic Name Cardiac Device Clinic [facility] Implantable Pulse Generator Type Pacemaker [facility] Jayce Setting Mode (NBG Code) MVP AAI DDD [facility] Jayce Setting Lower Rate Limit 60 {beats}/ min [facility] Jayce Setting Maximum Tracking Rate 130 {beats}/ min [facility] Jayce Setting Maximum Sensor Rate 130 {beats}/ min [facility] Jayce Setting Hysterisis Rate DISABLED [facility] Jayce Setting OPAL Delay Low 150 ms [facility] Jayce Setting PAV Delay Low 180 ms [facility] Jayce Setting AT Mode Switch Rate 171 {beats}/ min [facility] Lead Channel Setting Sensing Polarity Bipolar [facility] Lead Channel Setting Sensing Anode Location Right Atrium [facility] Lead Channel Setting Sensing Anode Terminal Ring [facility] Lead Channel Setting Sensing Cath[place] Location Right Atrium [facility] Lead Channel Setting Sensing [place] Terminal Tip [facility] Lead Channel Setting Sensing Sensitivity 0.3 mV [facility] Lead Channel Setting Sensing Polarity Bipolar [facility] Lead Channel Setting Sensing Anode Location Right Ventricle [facility] Lead Channel Setting Sensing Anode Terminal Ring [facility] Lead Channel Setting Sensing Cath[place] Location Right Ventricle [facility] Lead Channel Setting Sensing [place] Terminal Tip [facility] Lead Channel Setting Sensing Sensitivity 0.9 mV [facility] Lead Channel Setting Pacing Polarity Bipolar [facility] Lead Channel Setting Pacing Anode Location Right Atrium [facility] Lead Channel Setting Pacing Anode Terminal Ring [facility] Lead Channel Setting Sensing Cathode Location Right Atrium [facility] Lead Channel Setting Sensing Cath[place] Terminal Tip [facility] Lead Channel Setting Pacing Pulse Width 0.4 ms [facility] Lead Channel Setting RA Pacing Amplitude 1.5 V [facility] Lead Channel Setting Pacing Capture Mode Adaptive [facility] Lead Channel Setting Pacing Polarity Bipolar [facility] Lead Channel Setting Pacing Anode Location Right Ventricle [facility] Lead Channel Setting Pacing Anode Terminal Ring [facility] Lead Channel Setting Sensing Cath[place] Location Right Ventricle [facility] Lead Channel Setting Sensing [place] Terminal Tip [facility] Lead Channel Setting Pacing Pulse Width 0.4 ms [facility] Lead Channel Setting Pacing Amplitude 3.75 V [facility] Lead Channel Setting Pacing Capture Mode Adaptive [facility] Zone Setting Type Category VF [facility] Zone Setting Vendor Type Category V High Rate [facility] Zone Setting Type Category VT [facility] Zone Setting Vendor Type Category FastVT [facility] Zone Setting Type Category [place] [facility] Zone Setting Vendor Type Category [place] [facility] Zone Setting Type Category [place] [facility] Zone Setting Vendor Type Category MonVT [facility] Zone Setting Status Monitor [facility] Zone Setting Detection Interval 400 ms [facility] Zone Setting Type Category ATRIAL_FIBRIL LATION [facility] Zone Setting Vendor Type Category FastATAF [facility] Zone Setting Type Category AT/AF [facility] Zone Setting Status Monitor [facility] Zone Setting Detection Interval 350 ms [facility] Atrial Impedance 456 ohm [facility] Atrial Impedance 399 ohm [facility] P Wave 2.625 mV [facility] P Wave 2.625 mV [facility] RA Threshold 0.375 V [facility] RA Threshold PW 0.4 ms [facility] RV Impedance 399 ohm [facility] RV Impedance 323 ohm [facility] R Wave 10.875 mV [facility] R Wave 10.875 mV [facility] RV Threshold 1.375 V [facility] RV Threshold PW 0.4 ms [facility] Battery Date Time of Measurements 2+0000 [facility] Battery Status OK [facility] Battery POSTING SPECIALIST Trigger 2.625 [facility] Battery Remaining Longevity 155 mo [facility] Battery Voltage 3.04 V [facility] Jayce Statistic Date Time Start 1+0000 [facility] Jayce Statistic Date Time End 6+0000 [facility] AP (%) 30.64 % [facility] TECHNOLOGIST (%) 1.58 % [facility] AP/SYSTEM TECHNOLOGIST % 0.72 % [facility] /SYSTEM TECHNOLOGIST % 0.17 % [facility] AP/VS % 43.18 % [facility] /VS % 56.15 % [facility] Atrial Tachy Statistic Date Time Start 1+0000 [facility] Atrial Tachy Statistic Date Time End 6+0000 [facility] Atrial Tachy Statistic AT/AF [place] Percent 31.8 % [facility] Therapy Statistic Recent Date Time Start 1+0000 [facility] Therapy Statistic Recent Date Time End 6+0000 [facility] Therapy Statistic Total Date Time Start 6+0000 [facility] Therapy Statistic Total Date Time End 6+0000 [facility] Episode Statistic Recent Count 9,528 [facility] Episode Statistic Type Category AT/AF [facility] Episode Statistic Recent Count 0 [facility] Episode Statistic Type Category Patient Activated [facility] Episode Statistic Recent Count 0 [facility] Episode Statistic Type Category SVT [facility] Episode Statistic Recent Count 1 [facility] Episode Statistic Type Category [place] [facility] Episode [facility]istic Recent Count 0 [facility] Episode Statistic Type Category [place] [facility] Episode Statistic Recent Date Time Start 1+0000 [facility] Episode Statistic Recent Date Time End 6+0000 [facility] Episode Statistic Recent Date Time Start 1+0000 [facility] Episode Statistic Recent Date Time End 6+0000 [facility] Episode Statistic Recent Date Time Start 1+0000 [facility] Episode Statistic Recent Date Time End [id number] 6+0000 [facility] Episode Statistic Recent Date Time Start [id number] 1+0000 [facility] Episode Statistic Recent Date Time End [id number] 6+0000 [facility] Episode Statistic Recent Date Time Start [id number] 1+0000 [facility] Episode Statistic Recent Date Time End [id number] 6+0000 [facility] Episode Statistic Total Count 59,107 [facility] Episode Statistic Type Category AT/AF [facility] Episode Statistic Total Count 0 [facility] Episode Statistic Type Category Patient Activated [facility] Episode Stat[facility] Total Count 1 [facility] Episode Stat[facility] Type Category SVT [facility] Episode [facility] Total Count 8 [facility] Episode Statistic Type Category [place] [facility] Episode Stat[facility] Total Count 0 [facility] Episode Statistic Type Category [place] [facility] Episode Statistic Total Date Time Start 6+0000 [facility] Episode Statistic Total Date Time End [id number] 6+0000 [facility] Episode Statistic Total Date Time Start [id number] 6+0000 [facility] Episode Statistic Total Date Time End [id number] 6+0000 [facility] Episode Statistic Total Date Time Start [id number] 6+0000 [facility] Episode Statistic Total Date Time End [id number] 6+0000 [facility] Episode Statistic Total Date Time Start [id number] 6+0000 [facility] Episode Statistic Total Date Time End [id number] 6+0000 [facility] Episode Statistic Total Date Time Start [id number] 6+0000 [facility] Episode Statistic Total Date Time End [id number] 6+0000 [facility] Episode Identifier 46857 [facility] Episode Type Category [place] [facility] Episode Date Time [id number] 1+0000 [facility] Episode Duration 2 s [facility] Episode Identifier 61091 [facility] Episode Type Category Monitor [facility] Episode Date Time [id number] 9+0000 [facility] Episode Identifier 57494 [facility] Episode Type Category Monitor [facility] Episode Date Time [id number] 4+0000 [facility] Episode Duration 877 s [facility] Episode Identifier 18339 [facility] Episode Type Category Monitor [facility] Episode Date Time [id number] 4+0000 [facility] Episode Duration 598 s [facility] Episode Identifier 99792 [facility] Episode Type Category Monitor [facility] Episode Date Time [id number] 2+0000 [facility] Episode Duration 242 s [facility] Episode Identifier 34103 [facility] Episode Type Category Monitor [facility] Episode Date Time [id number] 4+0000 [facility] Episode Duration 206 s [facility] Episode Identifier 49621 [facility] Episode Type Category Monitor [facility] Episode Date Time [id number] 1+0000 [facility] Episode Duration 162 s [facility] Episode Identifier 32741 [facility] Episode Type Category Monitor [facility] Episode Date Time [id number] 4+0000 [facility] Episode Duration 33 s [facility] Episode Identifier 13282 [facility] Episode Type Category Monitor [facility] Episode Date Time [id number] 6+0000 [facility] Episode Duration 355 s [facility] Episode Identifier 53246 [facility] Episode Type Category Monitor [facility] Episode Date Time [id number] 0+0000 [facility] Episode Duration 1,014 s [facility] Episode Identifier 95200 [facility] Episode Type Category Monitor [facility] Episode Date Time [id number] 7+0000 [facility] Episode Duration 178 s [facility] Episode Identifier 26723 [facility] Episode Type Category Monitor [facility] Episode Date Time [id number] 3+0000 [facility] Episode Duration 1,059 s [facility] Episode Identifier 58055 [facility] Episode Type Category Monitor [facility] Episode Date Time [id number] 8+0000 [facility] Episode Duration 1,304 s [facility] Episode Identifier 49812 [facility] Episode Type Category Monitor [facility] Episode Date Time [id number] 0+0000 [facility] Episode Duration 1,665 s [facility] Episode Identifier 55194 [facility] Episode Type Category Monitor [facility] Episode Date Time [id number] 3+0000 [facility] Episode Duration 255 s [facility] Episode Identifier 34138 [facility] Episode Type Category Monitor [facility] Episode Date Time [id number] 8+0000 [facility] Episode Duration 236 s [facility] Episode Identifier 90648 [facility] Episode Type Category Monitor [facility] Episode Date Time [id number] 5+0000 [facility] Episode Duration 2,542 s [facility] Episode Identifier 85678 [facility] Episode Type Category Monitor [facility] Episode Date Time [id number] 9+0000 [facility] Episode Duration 29 s [facility] Episode Identifier 90450 [facility] Episode Type Category Monitor [facility] Episode Date Time [id number] 9+0000 [facility] Episode Duration 52 s [facility] Episode Identifier 47501 [facility] Episode Type Category Monitor [facility] Episode Date Time [id number] 4+0000 [facility] Episode Duration 540 s [facility] Episode Identifier 32455 [facility] Episode Type Category Monitor [facility] Episode Date Time [id number] 3+0000 [facility] Episode Duration 327 s [facility] Episode Identifier 31205 [facility] Episode Type Category Monitor [facility] Episode Date Time [id number] 9+0000 [facility] Episode Duration 1,065 s [facility] Episode Identifier 79250 [facility] Episode Type Category Monitor [facility] Episode Date Time [id number] 5+0000 [facility] Episode Duration 175 s [facility] Episode Identifier 64882 [facility] Episode Type Category Monitor [facility] Episode Date Time [id number] 2+0000 [facility] Episode Duration 271 s [facility] Episode Identifier 03937 [facility] Episode Type Category Monitor [facility] Episode Date Time [id number] 9+0000 [facility] Episode Duration 215 s [facility] Episode Identifier 55503 [facility] Episode Type Category Monitor [facility] Episode Date Time [id number] 2+0000 [facility] Episode Duration 244 s [facility] Episode Identifier 31846 [facility] Episode Type Category Monitor [facility] Episode Date Time [id number] 7+0000 [facility] Episode Duration 122 s [facility] Episode Identifier 13665 [facility] Episode Type Category Monitor [facility] Episode Date Time [id number] 7+0000 [facility] Episode Duration 54 s [facility] Episode Identifier 79010 [facility] Episode Type Category Monitor [facility] Episode Date Time [id number] 6+0000 [facility] Episode Duration 456 s [facility] Episode Identifier 81711 [facility] Episode Type Category Monitor [facility] Episode Date Time [id number] 2+0000 [facility] Episode Duration 62 s [facility] Episode Identifier 77042 [facility] Episode Type Category Monitor [facility] Episode Date Time [id number] 5+0000 [facility] Episode Duration 19 s [facility] Episode Identifier 75711 [facility] Episode Type Category Monitor [facility] Episode Date Time [id number] 9+0000 [facility] Episode Duration 24 s [facility] Episode Identifier 21630 [facility] Episode Type Category Monitor [facility] Episode Date Time [id number] 1+0000 [facility] Episode Duration 246 s [facility] Episode Identifier 76237 [facility] Episode Type Category Monitor [facility] Episode Date Time [id number] 8+0000 [facility] Episode Duration 19 s [facility] Episode Identifier 14682 [facility] Episode Type Category Monitor [facility] Episode Date Time 2+0000 [facility] Episode Duration 209 s [facility] Episode Identifier 05006 [facility] Episode Type Category Monitor [facility] Episode Date Time [id number] 6+0000 [facility] Episode Duration 113 s [facility] Episode Identifier 82444 [facility] Episode Type Category Monitor [facility] Episode Date Time 2+0000 [facility] Episode Duration 521 s [facility] Episode Identifier 74430 [facility] Episode Type Category Monitor [facility] Episode Date Time [id number] 4+0000 [facility] Episode Duration 406 s [facility] Episode Identifier 00087 [facility] Episode Type Category Monitor [facility] Episode Date Time [id number] 0+0000 [facility] Episode Duration 912 s [facility] Episode Identifier 47992 [facility] Episode Type Category Monitor [facility] Episode Date Time [id number] 7+0000 [facility] Episode Duration 105 s [facility] Episode Identifier 23059 [facility] Episode Type Category Monitor [facility] Episode Date Time [id number] 8+0000 [facility] Episode Duration 858 s [facility] Episode Identifier 07793 [facility] Episode Type Category Monitor [facility] Episode Date Time [id number] 8+0000 [facility] Episode Duration 62 s [facility] Episode Identifier 54816 [facility] Episode Type Category Monitor [facility] Episode Date Time [id number] 0+0000 [facility] Episode Duration 25 s [facility] Episode Identifier 70349 [facility] Episode Type Category Monitor [facility] Episode Date Time [id number] 6+0000 [facility] Episode Duration 30 s [facility] Episode Identifier 68870 [facility] Episode Type Category Monitor [facility] Episode Date Time [id number] 3+0000 [facility] Episode Duration 69 s [facility] Episode Identifier 00045 [facility] Episode Type Category Monitor [facility] Episode [facility] Time [id number] 2+0000 [facility] Episode Duration 65 s [facility] Episode Identifier 57970 [facility] Episode Type Category Monitor [facility] Episode Date Time [id number] 8+0000 [facility] Episode Duration 31 s [facility] Episode Identifier 83431 [facility] Episode Type Category Monitor [facility] Episode Date Time [id number] 4+0000 [facility] Episode Duration 30 s [facility] Episode Identifier 44987 [facility] Episode Type Category Monitor [facility] Episode Date Time [id number] 8+0000 [facility] Episode Duration 31 s [facility] Episode Identifier 85186 [facility] Episode Type Category Monitor [facility] Episode Date Time [id number] 6+0000 [facility] Episode Duration 77 s [facility] Episode Ident[facility] 55658 [facility] Episode Type Category Monitor [facility] Episode [facility] Time [id number] 6+0000 [facility] Episode Duration 53 s [facility] Episode Ident[facility] 81691 [facility] Episode Type Category Monitor [facility] Episode [facility] Time [id number] 7+0000 [facility] Episode Duration 51 s PAR [facility] 05/18/2024 2:52 AM EST Narrative [facility] - 06/20/2024 12:50 PM EST A remote CIED transmission was received and reviewed on the following patient: Patient Name Gisela Hood Askwith Summary Pacemaker Interrogation. All available lead measurements are stable. Events since last evaluation shows (1) AF w/RVR detection rate 162bpm <4secs. Multiple AF detections accounting for 32% pt is on OAC Estimated battery longevity ~ 13 years. SYSTEM TECHNOLOGIST 2% AP 31% Recheck in 3 months. Robbie Solis MD [facility] ORD ERABLES Final Result [facility] [address] [place] [address] * DEVICE CHECK: PPM IN-HOME INTERROGATION (02/17/2024 8:10 AM EDT) Date Time Interrogation Session [id number] +0000 [facility] Implantable Pulse Generator Speaker Mounter Medtronic [facility] eSilicon Implantable Pulse Generator Model [id number] Rosio XT DR ZENG [facility] eSilicon Implantable Pulse Generator Serial Number [id number] [facility] Type Interrogation Session Remote Scheduled [facility] Clinic Name Cardiac Device Clinic [facility] Implantable Pulse Generator Type Pacemaker [facility] Jayce Setting Mode (NBG Code) MVP AAI DDD [facility] Jayce Setting Lower Rate Limit 60 {beats}/ min [facility] Jayce Setting Maximum Tracking Rate 130 {beats}/ min [facility] Jayce Setting Maximum Sensor Rate 130 {beats}/ min [facility] Jayce Setting Hysterisis Rate DISABLED [facility] Jayce Setting OPAL Delay Low 150 ms [facility] Jayce Setting PAV Delay Low 180 ms [facility] Jayce Setting AT Mode Switch Rate 171 {beats}/ min [facility] Lead Channel Setting Sensing Polarity Bipolar [facility] Lead Channel Setting Sensing Anode Location Right Atrium [facility] Lead Channel Setting Sensing Anode Terminal Ring [facility] Lead Channel Setting Sensing Cathode Location Right Atrium [facility] Lead Channel Setting Sensing Cathode Terminal Tip [facility] Lead Channel Setting Sensing Sensitivity 0.3 mV [facility] Lead Channel Setting Sensing Polarity Bipolar [facility] Lead Channel Setting Sensing Anode Location Right Ventricle [facility] Lead Channel Setting Sensing Anode Terminal Ring [facility] Lead Channel Setting Sensing Cathode Location Right Ventricle [facility] Lead Channel Setting Sensing Cathode Terminal Tip [facility] Lead Channel Setting Sensing Sensitivity 0.9 mV [facility] Lead Channel Setting Pacing Polarity Bipolar [facility] Lead Channel Setting Pacing Anode Location Right Atrium [facility] Lead Channel Setting Pacing Anode Terminal Ring [facility] Lead Channel Setting Sensing Cathode Location Right Atrium [facility] Lead Channel Setting Sensing Cathode Terminal Tip [facility] Lead Channel Setting Pacing Pulse Width 0.4 ms [facility] Lead Channel Setting RA Pacing Amplitude 1.5 V [facility] Lead Channel Setting Pacing Capture Mode Adaptive [facility] Lead Channel Setting Pacing Polarity Bipolar [facility] Lead Channel Setting Pacing Anode Location Right Ventricle [facility] Lead Channel Setting Pacing Anode Terminal Ring [facility] Lead Channel Setting Sensing Cathode Location Right Ventricle [facility] Lead Channel Setting Sensing Cath[place] Terminal Tip [facility] Lead Channel Setting Pacing Pulse Width 0.4 ms [facility] Lead Channel Setting Pacing Amplitude 4 V [facility] Lead Channel Setting Pacing Capture Mode Adaptive [facility] Zone Setting Type Category VF [facility] Zone Setting Vendor Type Category V High Rate [facility] Zone Setting Type Category VT [facility] Zone Setting Vendor Type Category FastVT [facility] Zone Setting Type Category [place] [facility] Zone Setting Vendor Type Category [place] [facility] Zone Setting Type Category [place] [facility] Zone Setting Vendor Type Category MonVT [facility] Zone Setting Status Monitor [facility] Zone Setting Detection Interval 400 ms [facility] Zone Setting Type Category ATRIAL_FIBRIL LATION [facility] Zone Setting Vendor Type Category FastATAF [facility] Zone Setting Type Category AT/AF [facility] Zone Setting Status Monitor [facility] Zone Setting Detection Interval 350 ms [facility] Atrial Impedance 418 ohm [facility] Atrial Impedance 342 ohm [facility] P Wave 2.875 mV [facility] P Wave 2.875 mV [facility] RA Threshold 0.5 V [facility] RA Threshold PW 0.4 ms [facility] RV Impedance 380 ohm [facility] RV Impedance 304 ohm [facility] R Wave 10.375 mV [facility] R Wave 10.375 mV [facility] RV Threshold 1.375 V [facility] RV Threshold PW 0.4 ms [facility] Battery Date Time of Measurements [id number] 2+0000 [facility] Battery Status OK [facility] Battery POSTING SPECIALIST Trigger 2.625 [facility] Battery Remaining Longevity 158 mo [facility] Battery Voltage 3.04 V [facility] Jayce Statistic Date Time Start 1+0000 [facility] Jayce Statistic Date Time End 1+0000 [facility] AP (%) 34.66 % [facility] SYSTEM TECHNOLOGIST (%) 1.63 % [facility] AP/SYSTEM TECHNOLOGIST % 0.66 % [facility] /SYSTEM TECHNOLOGIST % 0.13 % [facility] AP/VS % 52.89 % [facility] /VS % 46.57 % [facility] Atrial Tachy Statistic Date Time Start 1+0000 [facility] Atrial Tachy Statistic Date Time End 1+0000 [facility] Atrial Tachy Statistic AT/AF [place] Percent 36.8 % [facility] Therapy Statistic Recent Date Time Start 1+0000 [facility] Therapy Statistic Recent Date Time End 1+0000 [facility] Therapy Statistic Total Date Time Start 6+0000 [facility] Therapy Statistic Total Date Time End 1+0000 [facility] Episode Statistic Recent Count 8,232 [facility] Episode Statistic Type Category AT/AF [facility] Episode Statistic Recent Count 0 [facility] Episode Statistic Type Category Patient Activated [facility] Episode Statistic Recent Count 0 [facility] Episode Statistic Type Category SVT [facility] Episode Statistic Recent Count 1 [facility] Episode Statistic Type Category [place] [facility] Episode Statistic Recent Count 0 [facility] Episode Statistic Type Category [place] [facility] Episode Statistic Recent Date Time Start 1+0000 [facility] Episode Statistic Recent Date Time End 1+0000 [facility] Episode Statistic Recent Date Time Start 1+0000 [facility] Episode Statistic Recent Date Time End 1+0000 [facility] Episode Statistic Recent Date Time Start 1+0000 [facility] Episode Statistic Recent Date Time End 1+0000 [facility] Episode Statistic Recent Date Time Start 1+0000 [facility] Episode Statistic Recent Date Time End 1+0000 [facility] Episode Statistic Recent Date Time Start 1+0000 [facility] Episode Statistic Recent Date Time End 1+0000 [facility] Episode Statistic Total Count 49,579 [facility] Episode Statistic Type Category AT/AF [facility] Episode Stat[facility] Total Count 0 [facility] Episode Statistic Type Category Patient Activated [facility] Episode Stat[facility] Total Count 1 [facility] Episode Statistic Type Category SVT [facility] Episode Statistic Total Count 7 [facility] Episode Statistic Type Category [place] [facility] Episode Statistic Total Count 0 [facility] Episode Statistic Type Category [place] [facility] Episode Statistic Total Date Time Start 6+0000 [facility] Episode Statistic Total Date Time End 1+0000 [facility] Episode Statistic Total Date Time Start 6+0000 [facility] Episode Statistic Total Date Time End 1+0000 [facility] Episode Statistic Total Date Time Start 6+0000 [facility] Episode Statistic Total Date Time End 1+0000 [facility] Episode Statistic Total Date Time Start 6+0000 [facility] Episode Statistic Total Date Time End 1+0000 [facility] Episode Statistic Total Date Time Start 6+0000 [facility] Episode Statistic Total Date Time End 1+0000 [facility] Episode Identifier 61330 [facility] Episode Type Category [place] [facility] Episode Date Time [id number] 8+0000 [facility] Episode Duration 1 s [facility] Episode Ident[facility] 59865 [facility] Episode Type Category Monitor [facility] Episode [facility] Time [id number] 4+0000 [facility] Episode Identifier 27404 [facility] Episode Type Category Monitor [facility] Episode [facility] Time [id number] 3+0000 [facility] Episode Duration 237 s [facility] Episode Identifier 29511 [facility] Episode Type Category Monitor [facility] Episode Date Time [id number] 2+0000 [facility] Episode Duration 4,769 s [facility] Episode Identifier 32483 [facility] Episode Type Category Monitor [facility] Episode Date Time [id number] 1+0000 [facility] Episode Duration 569 s [facility] Episode Identifier [id number] [facility] Episode Type Category Monitor [facility] Episode Date Time [id number] 5+0000 [facility] Episode Duration 1,454 s [facility] Episode Identifier 30994 [facility] Episode Type Category Monitor [facility] Episode Date Time [id number] 9+0000 [facility] Episode Duration 683 s [facility] Episode Identifier 90515 [facility] Episode Type Category Monitor [facility] Episode Date Time [id number] 8+0000 [facility] Episode Duration 89 s [facility] Episode Identifier 88348 [facility] Episode Type Category Monitor [facility] Episode Date Time [id number] 6+0000 [facility] Episode Duration 740 s [facility] Episode Identifier 03344 [facility] Episode Type Category Monitor [facility] Episode Date Time [id number] 9+0000 [facility] Episode Duration 172 s [facility] Episode Identifier 22207 [facility] Episode Type Category Monitor [facility] Episode Date Time [id number] 8+0000 [facility] Episode Duration 386 s [facility] Episode Identifier 89319 [facility] Episode Type Category Monitor [facility] Episode Date Time [id number] 9+0000 [facility] Episode Duration 163 s [facility] Episode Identifier 10326 [facility] Episode Type Category Monitor [facility] Episode Date Time [id number] 5+0000 [facility] Episode Duration 670 s [facility] Episode Identifier 83630 [facility] Episode Type Category Monitor [facility] Episode Date Time [id number] 4+0000 [facility] Episode Duration 49 s [facility] Episode Identifier 35331 [facility] Episode Type Category Monitor [facility] Episode Date Time [id number] 3+0000 [facility] Episode Duration 117 s [facility] Episode Identifier 42050 [facility] Episode Type Category Monitor [facility] Episode Date [facility] [id number] 6+0000 [facility] Episode Duration 254 s [facility] Episode Identifier 15183 [facility] Episode Type Category Monitor [facility] Episode Date Time [id number] 7+0000 [facility] Episode Duration 387 s [facility] Episode Identifier 71728 [facility] Episode Type Category Monitor [facility] Episode Date Time [id number] 9+0000 [facility] Episode Duration 118 s [facility] Episode Identifier 71683 [facility] Episode Type Category Monitor [facility] Episode Date Time [id number] 9+0000 [facility] Episode Duration 92 s [facility] Episode Identifier 98925 [facility] Episode Type Category Monitor [facility] Episode Date Time [id number] 2+0000 [facility] Episode Duration 36 s [facility] Episode Identifier 21403 [facility] Episode Type Category Monitor [facility] Episode Date Time [id number] 4+0000 [facility] Episode Duration 92 s [facility] Episode Identifier 35601 [facility] Episode Type Category Monitor [facility] Episode Date Time [id number] 7+0000 [facility] Episode Duration 302 s [facility] Episode Identifier 90178 [facility] Episode Type Category Monitor [facility] Episode Date Time [id number] 3+0000 [facility] Episode Duration 29 s [facility] Episode Identifier 91318 [facility] Episode Type Category Monitor [facility] Episode Date Time [id number] 0+0000 [facility] Episode Duration 85 s [facility] Episode Identifier 45313 [facility] Episode Type Category Monitor [facility] Episode Date Time [id number] 0+0000 [facility] Episode Duration 578 s [facility] Episode Identifier 07001 [facility] Episode Type Category Monitor [facility] Episode Date Time [id number] 9+0000 [facility] Episode Duration 454 s [facility] Episode Identifier 70828 [facility] Episode Type Category Monitor [facility] Episode Date Time [id number] 4+0000 [facility] Episode Duration 34 s [facility] Episode Identifier 88537 [facility] Episode Type Category Monitor [facility] Episode Date Time [id number] 3+0000 [facility] Episode Duration 276 s [facility] Episode Identifier 71771 [facility] Episode Type Category Monitor [facility] Episode Date Time [id number] 5+0000 [facility] Episode Duration 151 s [facility] Episode Identifier 11320 [facility] Episode Type Category Monitor [facility] Episode Date Time [id number] 2+0000 [facility] Episode Duration 368 s [facility] Episode Identifier 52477 [facility] Episode Type Category Monitor [facility] Episode Date Time [id number] 6+0000 [facility] Episode Duration 652 s [facility] Episode Identifier 42678 [facility] Episode Type Category Monitor [facility] Episode Date Time [id number] 6+0000 [facility] Episode Duration 107 s [facility] Episode Identifier 31317 [facility] Episode Type Category Monitor [facility] Episode Date Time [id number] 4+0000 [facility] Episode Duration 90 s [facility] Episode Identifier 34390 [facility] Episode Type Category Monitor [facility] Episode Date Time [id number] 7+0000 [facility] Episode Duration 405 s [facility] Episode Identifier 81706 [facility] Episode Type Category Monitor [facility] Episode Date Time [id number] 2+0000 [facility] Episode Duration 27 s [facility] Episode Identifier 38686 [facility] Episode Type Category Monitor [facility] Episode Date Time [id number] 1+0000 [facility] Episode Duration 2,077 s [facility] Episode Identifier 53258 [facility] Episode Type Category Monitor [facility] Episode Date Time [id number] 5+0000 [facility] Episode Duration 873 s [facility] Episode Identifier 98910 [facility] Episode Type Category Monitor [facility] Episode Date Time [id number] 3+0000 [facility] Episode Duration 419 s [facility] Episode Identifier 90325 [facility] Episode Type Category Monitor [facility] Episode Date Time [id number] 4+0000 [facility] Episode Duration 716 s [facility] Episode Identifier 42684 [facility] Episode Type Category Monitor [facility] Episode Date Time [id number] 5+0000 [facility] Episode Duration 277 s [facility] Episode Identifier 91124 [facility] Episode Type Category Monitor [facility] Episode Date Time [id number] 8+0000 [facility] Episode Duration 234 s [facility] Episode Identifier 47125 [facility] Episode Type Category Monitor [facility] Episode Date Time [id number] 6+0000 [facility] Episode Duration 121 s [facility] Episode Identifier 53935 [facility] Episode Type Category Monitor [facility] Episode Date Time [id number] 7+0000 [facility] Episode Duration 441 s [facility] Episode Identifier 62921 [facility] Episode Type Category Monitor [facility] Episode Date Time [id number] 8+0000 [facility] Episode Duration 524 s [facility] Episode Identifier 76532 [facility] Episode Type Category Monitor [facility] Episode Date Time [id number] 1+0000 [facility] Episode Duration 159 s [facility] Episode Identifier 57810 [facility] Episode Type Category Monitor [facility] Episode Date Time [id number] 9+0000 [facility] Episode Duration 182 s [facility] Episode Identifier 63360 [facility] Episode Type Category Monitor [facility] Episode Date Time [id number] 2+0000 [facility] Episode Duration 475 s [facility] Episode Identifier 81494 [facility] Episode Type Category Monitor [facility] Episode Date Time [id number] 5+0000 [facility] Episode Duration 389 s [facility] Episode Identifier 27261 [facility] Episode Type Category Monitor [facility] Episode Date Time [id number] 5+0000 [facility] Episode Duration 241 s [facility] Episode Identifier 08190 [facility] Episode Type Category Monitor [facility] Episode [facility] Time [id number] 0+0000 [facility] Episode Duration 91 s [facility] Episode Identifier 13655 [facility] Episode Type Category Monitor [facility] Episode Date Time [id number] 0+0000 [facility] Episode Duration 543 s [facility] Episode Identifier 88826 [facility] Episode Type Category Monitor [facility] Episode Date Time [id number] 2+0000 [facility] Episode Duration 178 s [facility] 02/17/2024 7:00 AM EDT Narrative [facility] - 02/22/2024 6:29 PM EDT A remote CIED transmission was received and reviewed on the following patient: Patient Name Gisela Hood Askwith Summary Pacemaker Interrogation. All available lead measurements are stable. Events since last evaluation shows multiple AF detections accounting for 37% pt is currently in AF on Xeralto 1 AT/SVT rates 160s <4secs. Estimated battery longevity ~ 13.1 years. AP 35% SYSTEM TECHNOLOGIST 2% Recheck in 3 months. Robbie Solis MD [facility] ORD ERABLES Final Result [facility] [address] [place] [address] * DEVICE CHECK: PPM IN-HOME INTERROGATION (11/18/2023 8:57 AM EDT) Date Time Interrogation Session [id number] 1+0000 [facility] eSilicon Implantable Pulse Generator Speaker Mounter Medtronic [facility] Implantable Pulse Generator Model [id number] [place] XT DR ZENG [facility] eSilicon Implantable Pulse Generator Serial Number [id number] [facility] Type Interrogation Session Remote Scheduled [facility] Clinic Name Cardiac Device Clinic [facility] Implantable Pulse Generator Type Pacemaker [facility] Jayce Setting Mode (NBG Code) MVP AAI DDD [facility] Jayce Setting Lower Rate Limit 60 {beats}/ min [facility] Jayce Setting Maximum Tracking Rate 130 {beats}/ min [facility] Jayce Setting Maximum Sensor Rate 130 {beats}/ min [facility] Jayce Setting Hysterisis Rate DISABLED [facility] Jayce Setting OPAL Delay Low 150 ms [facility] Jayce Setting PAV Delay Low 180 ms [facility] Jayce Setting AT Mode Switch Rate 171 {beats}/ min [facility] Lead Channel Setting Sensing Polarity Bipolar [facility] Lead Channel Setting Sensing Anode Location Right Atrium [facility] Lead Channel Setting Sensing Anode Terminal Ring [facility] Lead Channel Setting Sensing Cathode Location Right Atrium [facility] Lead Channel Setting Sensing Cathode Terminal Tip [facility] Lead Channel Setting Sensing Sensitivity 0.3 mV [facility] Lead Channel Setting Sensing Polarity Bipolar [facility] Lead Channel Setting Sensing Anode Location Right Ventricle [facility] Lead Channel Setting Sensing Anode Terminal Ring [facility] Lead Channel Setting Sensing Cathode Location Right Ventricle [facility] Lead Channel Setting Sensing Cathode Terminal Tip [facility] Lead Channel Setting Sensing Sensitivity 0.9 mV [facility] Lead Channel Setting Pacing Polarity Bipolar [facility] Lead Channel Setting Pacing Anode Location Right Atrium [facility] Lead Channel Setting Pacing Anode Terminal Ring [facility] Lead Channel Setting Sensing Cathode Location Right Atrium [facility] Lead Channel Setting Sensing Cathode Terminal Tip [facility] Lead Channel Setting Pacing Pulse Width 0.4 ms [facility] Lead Channel Setting RA Pacing Amplitude 1.5 V [facility] Lead Channel Setting Pacing Capture Mode Adaptive [facility] Lead Channel Setting Pacing Polarity Bipolar [facility] Lead Channel Setting Pacing Anode Location Right Ventricle [facility] Lead Channel Setting Pacing Anode Terminal Ring [facility] Lead Channel Setting Sensing Cathode Location Right Ventricle [facility] Lead Channel Setting Sensing Cathode Terminal Tip [facility] Lead Channel Setting Pacing Pulse Width 0.4 ms [facility] Lead Channel Setting Pacing Amplitude 4 V [facility] Lead Channel Setting Pacing Capture Mode Adaptive [facility] Zone Setting Type Category VF [facility] Zone Setting Vendor Type Category V High Rate [facility] Zone Setting Type Category [place] [facility] Zone Setting Vendor Type Category FastVT [facility] Zone Setting Type Category [place] [facility] Zone Setting Vendor Type Category [place] [facility] Zone Setting Type Category [place] [facility] Zone Setting Vendor Type Category MonVT [facility] Zone Setting Status Monitor [facility] Zone Setting Detection Interval 400 ms [facility] Zone Setting Type Category ATRIAL_FIBRIL LATION [facility] Zone Setting Vendor Type Category FastATAF [facility] Zone Setting Type Category AT/AF [facility] Zone Setting Status Monitor [facility] Zone Setting Detection Interval 350 ms [facility] Atrial Impedance 437 ohm [facility] Atrial Impedance 361 ohm [facility] P Wave 2.875 mV [facility] P Wave 2.875 mV [facility] RA Threshold 0.5 V [facility] RA Threshold PW 0.4 ms [facility] RV Impedance 418 ohm [facility] RV Impedance 323 ohm [facility] R Wave 9.875 mV [facility] R Wave 9.875 mV [facility] RV Threshold 1.75 V [facility] RV Threshold PW 0.4 ms [facility] Battery Date Time of Measurements [id number] [facility] Battery Status OK [facility] Battery POSTING SPECIALIST Trigger 2.625 [facility] Battery Remaining Longevity 161 mo [facility] Battery Voltage 3.06 V [facility] Jayce Statistic Date Time Start [id number] 5 [facility] Jayce Statistic Date Time End [id number] [facility] AP (%) 29.04 % [facility] SYSTEM TECHNOLOGIST (%) 1.72 % [facility] AP/SYSTEM TECHNOLOGIST % 0.76 % [facility] /SYSTEM TECHNOLOGIST % 0.15 % [facility] AP/VS % 43.05 % [facility] /VS % 56.28 % [facility] Atrial Tachy Statistic Date Time Start [id number] 5+0000 [facility] Atrial Tachy Statistic Date Time End [id number] 1+0000 [facility] Atrial Tachy Statistic AT/AF [place] Percent 35.5 % [facility] Therapy Statistic Recent Date Time Start 1600277131576 5+0000 [facility] Therapy Statistic Recent Date Time End [id number] 1+0000 [facility] Therapy Statistic Total Date Time Start 5611134761975 6+0000 [facility] Therapy Statistic Total Date Time End 1054906461327 1+0000 [facility] Episode Statistic Recent Count 9,240 [facility] Episode Statistic Type Category AT/AF [facility] Episode Statistic Recent Count 0 [facility] Episode Statistic Type Category Patient Activated [facility] Episode [facility]istic Recent Count 0 [facility] Episode Statistic Type Category SVT [facility] Episode Statistic Recent Count 0 [facility] Episode Statistic Type Category [place] [facility] Episode Statistic Recent Count 0 [facility] Episode Statistic Type Category [place] [facility] Episode Statistic Recent Date Time Start [id number] 5+0000 [facility] Episode Statistic Recent Date Time End 6326179961768 1+0000 [facility] Episode Statistic Recent Date Time Start [id number] 5+0000 [facility] Episode Statistic Recent Date Time End 4346188153588 1+0000 [facility] Episode Statistic Recent Date Time Start 4636852258076 5+0000 [facility] Episode Statistic Recent Date Time End 6255605867947 1+0000 [facility] Episode Statistic Recent Date Time Start 5322308682792 5+0000 [facility] Episode Statistic Recent Date Time End 3929073133569 1+0000 [facility] Episode Statistic Recent Date Time Start 4654952221386 5+0000 [facility] Episode Statistic Recent Date Time End 4112097860269 1+0000 [facility] Episode Statistic Total Count 41,347 [facility] Episode Statistic Type Category AT/AF [facility] Episode Statistic Total Count 0 [facility] Episode Statistic Type Category Patient Activated [facility] Episode Statistic Total Count 1 [facility] Episode Statistic Type Category SVT [facility] Episode [facility]istic Total Count 6 [facility] Episode Statistic Type Category [place] [facility] Episode Statistic Total Count 0 [facility] Episode Statistic Type Category [place] [facility] Episode Statistic Total Date Time Start [id number] 6+0000 [facility] Episode Statistic Total Date Time End 7178681446306 1+0000 [facility] Episode Statistic Total Date Time Start 5839916700586 6+0000 [facility] Episode Statistic Total Date Time End 9589152577206 1+0000 [facility] Episode Statistic Total Date Time Start 1655895086092 6+0000 [facility] Episode Statistic Total Date Time End 3251713401265 1+0000 [facility] Episode Statistic Total Date Time Start 4004085440428 6+0000 [facility] Episode Statistic Total Date Time End 7424219546432 1+0000 [facility] Episode Statistic Total Date Time Start [id number] 6+0000 [facility] Episode Statistic Total Date Time End 8145328706183 1+0000 [facility] Episode Identifier 63724 [facility] Episode Type Category Monitor [facility] Episode Date Time 9491958023651 5+0000 [facility] Episode Identifier 67375 [facility] Episode Type Category Monitor [facility] Episode Date Time [id number] 2+0000 [facility] Episode Duration 281 s [facility] Episode Identifier 73074 [facility] Episode Type Category Monitor [facility] Episode Date Time 6326543088787 8+0000 [facility] Episode Duration 1,042 s [facility] Episode Identifier 21494 [facility] Episode Type Category Monitor [facility] Episode Date Time 5853740258397 2+0000 [facility] Episode Duration 305 s [facility] Episode Identifier 43915 [facility] Episode Type Category Monitor [facility] Episode Date Time 8195833800373 9+0000 [facility] Episode Duration 108 s [facility] Episode Identifier 10585 [facility] Episode Type Category Monitor [facility] Episode Date Time 9220194806055 2+0000 [facility] Episode Duration 141 s [facility] Episode Identifier 18967 [facility] Episode Type Category Monitor [facility] Episode Date [facility] 1232425329483 0+0000 [facility] Episode Duration 147 s [facility] Episode Identifier 78180 [facility] Episode Type Category Monitor [facility] Episode Date Time 5905133505951 9+0000 [facility] Episode Duration 156 s [facility] Episode Identifier 65184 [facility] Episode Type Category Monitor [facility] Episode Date Time [id number] 6+0000 [facility] Episode Duration 112 s [facility] Episode Identifier 66401 [facility] Episode Type Category Monitor [facility] Episode Date Time 9049280591242 8+0000 [facility] Episode Duration 336 s [facility] Episode Identifier 75314 [facility] Episode Type Category Monitor [facility] Episode Date Time 1403790347500 2+0000 [facility] Episode Duration 686 s [facility] Episode Identifier 63555 [facility] Episode Type Category Monitor [facility] Episode Date Time 1178573017402 3+0000 [facility] Episode Duration 1,277 s [facility] Episode Identifier 70718 [facility] Episode Type Category Monitor [facility] Episode Date Time 2088591145778 7+0000 [facility] Episode Duration 582 s [facility] Episode Identifier 68816 [facility] Episode Type Category Monitor [facility] Episode Date Time 6377763842930 2+0000 [facility] Episode Duration 372 s [facility] Episode Identifier 35440 [facility] Episode Type Category Monitor [facility] Episode Date Time 2449146618151 0+0000 [facility] Episode Duration 869 s [facility] Episode Identifier 65706 [facility] Episode Type Category Monitor [facility] Episode Date Time 3226602258571 2+0000 [facility] Episode Duration 736 s [facility] Episode Identifier 18091 [facility] Episode Type Category Monitor [facility] Episode Date Time [id number] 1+0000 [facility] Episode Duration 125 s [facility] Episode Identifier 01393 [facility] Episode Type Category Monitor [facility] Episode Date Time [id number] 7+0000 [facility] Episode Duration 353 s [facility] Episode Identifier 12758 [facility] Episode Type Category Monitor [facility] Episode Date Time 4100915362071 6+0000 [facility] Episode Duration 2,480 s [facility] Episode Identifier 43189 [facility] Episode Type Category Monitor [facility] Episode Date Time [id number] 5+0000 [facility] Episode Duration 1,065 s [facility] Episode Identifier 65029 [facility] Episode Type Category Monitor [facility] Episode Date Time 2002996729297 4+0000 [facility] Episode Duration 294 s [facility] Episode Identifier 50689 [facility] Episode Type Category Monitor [facility] Episode [facility] Time 2637858051389 6+0000 [facility] Episode Duration 252 s [facility] Episode Identifier 97211 [facility] Episode Type Category Monitor [facility] Episode Date Time 9643750180850 9+0000 [facility] Episode Duration 151 s [facility] Episode Identifier 37707 [facility] Episode Type Category Monitor [facility] Episode Date Time [id number] 6+0000 [facility] Episode Duration 204 s [facility] Episode Identifier 84537 [facility] Episode Type Category Monitor [facility] Episode Date Time [id number] 8+0000 [facility] Episode Duration 26 s [facility] Episode Identifier 92101 [facility] Episode Type Category Monitor [facility] Episode Date Time [id number] 4+0000 [facility] Episode Duration 580 s [facility] Episode Identifier 44966 [facility] Episode Type Category Monitor [facility] Episode Date Time [id number] 2+0000 [facility] Episode Duration 43 s [facility] Episode Identifier 89491 [facility] Episode Type Category Monitor [facility] Episode Date Time [id number] 6+0000 [facility] Episode Duration 352 s [facility] Episode Identifier 82117 [facility] Episode Type Category Monitor [facility] Episode Date Time [id number] 8+0000 [facility] Episode Duration 542 s [facility] Episode Identifier 93519 [facility] Episode Type Category Monitor [facility] Episode Date Time [id number] 6+0000 [facility] Episode Duration 151 s [facility] Episode Identifier 57971 [facility] Episode Type Category Monitor [facility] Episode Date Time [id number] 5+0000 [facility] Episode Duration 557 s [facility] Episode Identifier 35253 [facility] Episode Type Category Monitor [facility] Episode Date Time [id number] 2+0000 [facility] Episode Duration 150 s [facility] Episode Identifier 29789 [facility] Episode Type Category Monitor [facility] Episode Date Time [id number] 6+0000 [facility] Episode Duration 333 s [facility] Episode Identifier 11105 [facility] Episode Type Category Monitor [facility] Episode Date Time [id number] 5+0000 [facility] Episode Duration 110 s [facility] Episode Identifier 83295 [facility] Episode Type Category Monitor [facility] Episode Date [facility] [id number] 5+0000 [facility] Episode Duration 296 s [facility] Episode Identifier 06715 [facility] Episode Type Category Monitor [facility] Episode Date Time [id number] 3+0000 [facility] Episode Duration 221 s [facility] Episode Identifier 30657 [facility] Episode Type Category Monitor [facility] Episode Date Time [id number] 0+0000 [facility] Episode Duration 218 s [facility] Episode Identifier 29503 [facility] Episode Type Category Monitor [facility] Episode Date Time [id number] 8+0000 [facility] Episode Duration 419 s [facility] Episode Identifier 52604 [facility] Episode Type Category Monitor [facility] Episode Date Time [id number] 7+0000 [facility] Episode Duration 414 s [facility] Episode Identifier 36402 [facility] Episode Type Category Monitor [facility] Episode Date Time [id number] 4+0000 [facility] Episode Duration 862 s [facility] Episode Identifier 95487 [facility] Episode Type Category Monitor [facility] Episode Date Time [id number] 0+0000 [facility] Episode Duration 42 s [facility] Episode Identifier 77409 [facility] Episode Type Category Monitor [facility] Episode Date Time [id number] 5+0000 [facility] Episode Duration 410 s [facility] Episode Identifier 92228 [facility] Episode Type Category Monitor [facility] Episode Date Time [id number] 4+0000 [facility] Episode Duration 108 s [facility] Episode Identifier 37239 [facility] Episode Type Category Monitor [facility] Episode Date Time [id number] 2+0000 [facility] Episode Duration 139 s [facility] Episode Identifier 20736 [facility] Episode Type Category Monitor [facility] Episode Date [facility] [id number] 9+0000 [facility] Episode Duration 945 s [facility] Episode Identifier 99904 [facility] Episode Type Category Monitor [facility] Episode Date Time [id number] 3+0000 [facility] Episode Duration 744 s [facility] Episode Ident[facility] 75910 [facility] Episode Type Category Monitor [facility] Episode [facility] Time [id number] 9+0000 [facility] Episode Duration 316 s [facility] Episode Identifier 63979 [facility] Episode Type Category Monitor [facility] Episode Date Time [id number] 7+0000 [facility] Episode Duration 89 s [facility] Episode Identifier 87245 [facility] Episode Type Category Monitor [facility] Episode Date Time [id number] 2+0000 [facility] Episode Duration 923 s [facility] Episode Ident[facility] 57873 [facility] Episode Type Category Monitor [facility] Episode Date Time [id number] 1+0000 [facility] Episode Duration 198 s [facility] Episode Ident[facility] 99896 [facility] Episode Type Category Monitor [facility] Episode Date Time [id number] 3+0000 [facility] Episode Duration 325 s [facility] 11/18/2023 4:28 AM EDT Narrative [facility] - 11/23/2023 8:39 AM EDT A remote CIED transmission was received and reviewed on the following patient: Patient Name Gisela Hood Askwith Summary Pacemaker Interrogation. All available lead measurements are stable. Events since last evaluation shows AF detections accounting for 35% pt is on Xeralto. Estimated battery longevity ~ 13.4 years. AP 29% SYSTEM TECHNOLOGIST 2% Recheck in 3 months. us Robbie Solis MD [facility] C[facility] ORD ERABLES Final Result [facility] [address] [place] [address] * DEVICE CHECK: PPM IN-HOME INTERROGATION (08/18/2023 9:11 AM EST) Date Time Interrogation Session [id number] 5+0000 [facility] Implantable Pulse Generator Speaker Mounter Medtronic [facility] eSilicon Implantable Pulse Generator Model [id number] Rosio XT MRI [facility] Implantable Pulse Generator Serial Number [id number] [facility] Type Interrogation Session Remote Scheduled [facility] Clinic Name Cardiac Device Clinic [facility] Implantable Pulse Generator Type Pacemaker [facility] Jayce Setting Mode (NBG Code) MVP AAI DDD [facility] Jayce Setting Lower Rate Limit 60 {beats}/ min [facility] Jayce Setting Maximum Tracking Rate 130 {beats}/ min [facility] Jayce Setting Maximum Sensor Rate 130 {beats}/ min [facility] Jayce Setting Hysterisis Rate DISABLED [facility] Jayce Setting OPAL Delay Low 150 ms [facility] Jayce Setting PAV Delay Low 180 ms [facility] Jayce Setting AT Mode Switch Rate 171 {beats}/ min [facility] Lead Channel Setting Sensing Polarity Bipolar [facility] Lead Channel Setting Sensing Anode Location Right Atrium [facility] Lead Channel Setting Sensing Anode Terminal Ring [facility] Lead Channel Setting Sensing Cathode Location Right Atrium [facility] Lead Channel Setting Sensing Cathode Terminal Tip [facility] Lead Channel Setting Sensing Sensitivity 0.3 mV [facility] Lead Channel Setting Sensing Polarity Bipolar [facility] Lead Channel Setting Sensing Anode Location Right Ventricle [facility] Lead Channel Setting Sensing Anode Terminal Ring [facility] Lead Channel Setting Sensing Cathode Location Right Ventricle [facility] Lead Channel Setting Sensing Cathode Terminal Tip [facility] Lead Channel Setting Sensing Sensitivity 0.9 mV [facility] Lead Channel Setting Pacing Polarity Bipolar [facility] Lead Channel Setting Pacing Anode Location Right Atrium [facility] Lead Channel Setting Pacing Anode Terminal Ring [facility] Lead Channel Setting Sensing Cathode Location Right Atrium [facility] Lead Channel Setting Sensing Cathode Terminal Tip [facility] Lead Channel Setting Pacing Pulse Width 0.4 ms [facility] Lead Channel Setting RA Pacing Amplitude 1.5 V [facility] Lead Channel Setting Pacing Capture Mode Adaptive [facility] Lead Channel Setting Pacing Polarity Bipolar [facility] Lead Channel Setting Pacing Anode Location Right Ventricle [facility] Lead Channel Setting Pacing Anode Terminal Ring [facility] Lead Channel Setting Sensing Cathode Location Right Ventricle [facility] Lead Channel Setting Sensing Cathode Terminal Tip [facility] Lead Channel Setting Pacing Pulse Width 0.4 ms [facility] Lead Channel Setting Pacing Amplitude 4.75 V [facility] Lead Channel Setting Pacing Capture Mode Adaptive [facility] Zone Setting Type Category VF [facility] Zone Setting Vendor Type Category V High Rate [facility] Zone Setting Type Category [place] [facility] Zone Setting Vendor Type Category FastVT [facility] Zone Setting Type Category VT [facility] Zone Setting Vendor Type Category [place] [facility] Zone Setting Type Category [place] [facility] Zone Setting Vendor Type Category MonVT [facility] Zone Setting Status Monitor [facility] Zone Setting Detection Interval 400 ms [facility] Zone Setting Type Category ATRIAL_FIBRIL LATION [facility] Zone Setting Vendor Type Category FastATAF [facility] Zone Setting Type Category AT/AF [facility] Zone Setting Status Monitor [facility] Zone Setting Detection Interval 350 ms [facility] Atrial Impedance 437 ohm [facility] Atrial Impedance 361 ohm [facility] P Wave 4.75 mV [facility] P Wave 4.75 mV [facility] RA Threshold 0.375 V [facility] RA Threshold PW 0.4 ms [facility] RV Impedance 399 ohm [facility] RV Impedance 304 ohm [facility] R Wave 9.75 mV [facility] R Wave 9.75 mV [facility] RV Threshold 1.625 V [facility] RV Threshold PW 0.4 ms [facility] Battery Date Time of Measurements [id number] 2+0000 [facility] Battery Status OK [facility] Battery POSTING SPECIALIST Trigger 2.625 [facility] Battery Remaining Longevity 163 mo [facility] Battery Voltage 3.09 V [facility] Jayce Statistic Date Time Start 9+0000 [facility] Jayce Statistic Date Time End [id number] 5+0000 [facility] AP (%) 17.21 % [facility] SYSTEM TECHNOLOGIST (%) 1.67 % [facility] AP/SYSTEM TECHNOLOGIST % 0.62 % [facility] /SYSTEM TECHNOLOGIST % 0.13 % [facility] AP/VS % 32.72 % [facility] /VS % 66.83 % [facility] Atrial Tachy Statistic Date Time Start 9+0000 [facility] Atrial Tachy Statistic Date Time End [id number] 5+0000 [facility] Atrial Tachy Statistic AT/AF [place] Percent 51.2 % [facility] Therapy Statistic Recent Date Time Start [id number] 9+0000 [facility] Therapy Statistic Recent Date Time End [id number] 5+0000 [facility] Therapy Statistic Total Date Time Start [id number] 6+0000 [facility] Therapy Statistic Total Date Time End [id number] 5+0000 [facility] Episode Statistic Recent Count 8,123 [facility] Episode Statistic Type Category AT/AF [facility] Episode Statistic Recent Count 0 [facility] Episode Statistic Type Category Patient Activated [facility] Episode [facility]istic Recent Count 0 [facility] Episode Statistic Type Category SVT [facility] Episode [facility]istic Recent Count 0 [facility] Episode Statistic Type Category [place] [facility] Episode [facility]istic Recent Count 0 [facility] Episode Statistic Type Category [place] [facility] Episode Statistic Recent Date Time Start 9+0000 [facility] Episode Statistic Recent Date Time End 5+0000 [facility] Episode Statistic Recent Date Time Start [id number] 9+0000 [facility] Episode Statistic Recent Date Time End [id number] 5+0000 [facility] Episode Statistic Recent Date Time Start [id number] 9+0000 [facility] Episode Statistic Recent Date Time End [id number] 5+0000 [facility] Episode Statistic Recent Date Time Start [id number] 9+0000 [facility] Episode Statistic Recent Date Time End [id number] 5+0000 [facility] Episode Statistic Recent Date Time Start [id number] 9+0000 [facility] Episode Statistic Recent Date Time End [id number] 5+0000 [facility] Episode Statistic Total Count 32,107 [facility] Episode Statistic Type Category AT/AF [facility] Episode Statistic Total Count 0 [facility] Episode Statistic Type Category Patient Activated [facility] Episode [facility]istic Total Count 1 [facility] Episode Statistic Type Category SVT [facility] Episode Statistic Total Count 6 [facility] Episode Statistic Type Category [place] [facility] Episode Statistic Total Count 0 [facility] Episode Statistic Type Category [place] [facility] Episode Statistic Total Date Time Start [id number] 6+0000 [facility] Episode Statistic Total Date Time End [id number] 5+0000 [facility] Episode Statistic Total Date Time Start 9190458144617 6+0000 [facility] Episode Statistic Total Date Time End [id number] 5+0000 [facility] Episode Statistic Total Date Time Start 7951871259790 6+0000 [facility] Episode Statistic Total Date Time End [id number] 5+0000 [facility] Episode Statistic Total Date Time Start [id number] 6+0000 [facility] Episode Statistic Total Date Time End [id number] 5+0000 [facility] Episode Statistic Total Date Time Start [id number] 6+0000 [facility] Episode Statistic Total Date Time End 2825426642393 5+0000 [facility] Episode Identifier 31924 [facility] Episode Type Category Monitor [facility] Episode Date Time [id number] 1+0000 [facility] Episode Identifier 37188 [facility] Episode Type Category Monitor [facility] Episode Date Time 9271931799222 5+0000 [facility] Episode Duration 212 s [facility] Episode Identifier 98862 [facility] Episode Type Category Monitor [facility] Episode [facility] Time [id number] 1+0000 [facility] Episode Duration 833 s [facility] Episode Identifier 25067 [facility] Episode Type Category Monitor [facility] Episode Date Time 6123249015569 4+0000 [facility] Episode Duration 11,672 s [facility] Episode Identifier 31905 [facility] Episode Type Category Monitor [facility] Episode Date Time [id number] 6+0000 [facility] Episode Duration 219 s [facility] Episode Identifier 18228 [facility] Episode Type Category Monitor [facility] Episode Date Time [id number] 2+0000 [facility] Episode Duration 179 s [facility] Episode Identifier 28773 [facility] Episode Type Category Monitor [facility] Episode Date [facility] [id number] 1+0000 [facility] Episode Duration 195 s [facility] Episode Identifier 40985 [facility] Episode Type Category Monitor [facility] Episode Date Time [id number] 7+0000 [facility] Episode Duration 62 s [facility] Episode Identifier 02719 [facility] Episode Type Category Monitor [facility] Episode Date Time [id number] 4+0000 [facility] Episode Duration 141 s [facility] Episode Identifier 27289 [facility] Episode Type Category Monitor [facility] Episode Date Time [id number] 6+0000 [facility] Episode Duration 574 s [facility] Episode Identifier 94137 [facility] Episode Type Category Monitor [facility] Episode Date Time 9634801081690 2+0000 [facility] Episode Duration 192 s [facility] Episode Identifier 06912 [facility] Episode Type Category Monitor [facility] Episode Date Time [id number] 0+0000 [facility] Episode Duration 151 s [facility] Episode Identifier 62758 [facility] Episode Type Category Monitor [facility] Episode Date Time [id number] 5+0000 [facility] Episode Duration 38 s [facility] Episode Identifier 66669 [facility] Episode Type Category Monitor [facility] Episode Date Time [id number] 7+0000 [facility] Episode Duration 172 s [facility] Episode Identifier 14269 [facility] Episode Type Category Monitor [facility] Episode Date Time [id number] 7+0000 [facility] Episode Duration 192 s [facility] Episode Identifier 07909 [facility] Episode Type Category Monitor [facility] Episode Date Time [id number] 1+0000 [facility] Episode Duration 199 s [facility] Episode Identifier 68803 [facility] Episode Type Category Monitor [facility] Episode Date Time 1033472935406 9+0000 [facility] Episode Duration 146 s [facility] Episode Identifier 50685 [facility] Episode Type Category Monitor [facility] Episode [facility] Time 9168431967023 2+0000 [facility] Episode Duration 474 s [facility] Episode Identifier 92920 [facility] Episode Type Category Monitor [facility] Episode Date Time [id number] 1+0000 [facility] Episode Duration 108 s [facility] Episode Identifier 16545 [facility] Episode Type Category Monitor [facility] Episode [facility] Time [id number] 5+0000 [facility] Episode Duration 241 s [facility] Episode Identifier 58062 [facility] Episode Type Category Monitor [facility] Episode Date Time [id number] 0+0000 [facility] Episode Duration 104 s [facility] Episode Identifier 92198 [facility] Episode Type Category Monitor [facility] Episode Date Time 9118108825247 9+0000 [facility] Episode Duration 129 s [facility] Episode Identifier 35889 [facility] Episode Type Category Monitor [facility] Episode Date Time [id number] 1+0000 [facility] Episode Duration 185 s [facility] Episode Identifier 96567 [facility] Episode Type Category Monitor [facility] Episode Date [facility] [id number] 6+0000 [facility] Episode Duration 62 s [facility] Episode Identifier 07300 [facility] Episode Type Category Monitor [facility] Episode Date Time 3387000119033 8+0000 [facility] Episode Duration 644 s [facility] Episode Identifier 45301 [facility] Episode Type Category Monitor [facility] Episode Date Time [id number] 2+0000 [facility] Episode Duration 43 s [facility] Episode Identifier 93839 [facility] Episode Type Category Monitor [facility] Episode [facility] Time [id number] 6+0000 [facility] Episode Duration 128 s [facility] Episode Identifier 94533 [facility] Episode Type Category Monitor [facility] Episode Date Time [id number] 4+0000 [facility] Episode Duration 117 s [facility] Episode Identifier 90650 [facility] Episode Type Category Monitor [facility] Episode Date Time [id number] 1+0000 [facility] Episode Duration 135 s [facility] Episode Identifier 11781 [facility] Episode Type Category Monitor [facility] Episode Date Time [id number] 6+0000 [facility] Episode Duration 367 s [facility] Episode Identifier 13235 [facility] Episode Type Category Monitor [facility] Episode Date Time [id number] 1+0000 [facility] Episode Duration 103 s [facility] Episode Identifier 91842 [facility] Episode Type Category Monitor [facility] Episode Date Time [id number] 7+0000 [facility] Episode Duration 681 s [facility] Episode Identifier 54369 [facility] Episode Type Category Monitor [facility] Episode [facility] 7568525296966 3+0000 [facility] Episode Duration 117 s [facility] Episode Identifier 10948 [facility] Episode Type Category Monitor [facility] Episode Date Time [id number] 8+0000 [facility] Episode Duration 117 s [facility] Episode Identifier 96789 [facility] Episode Type Category Monitor [facility] Episode Date Time [id number] 8+0000 [facility] Episode Duration 199 s [facility] Episode Identifier 02186 [facility] Episode Type Category Monitor [facility] Episode [facility] Time [id number] 7+0000 [facility] Episode Duration 220 s [facility] Episode Identifier 60703 [facility] Episode Type Category Monitor [facility] Episode [facility] Time [id number] 0+0000 [facility] Episode Duration 373 s [facility] Episode Identifier 02797 [facility] Episode Type Category Monitor [facility] Episode [facility] [id number] 3+0000 [facility] Episode Duration 104 s [facility] Episode Identifier 29943 [facility] Episode Type Category Monitor [facility] Episode Date Time [id number] 1+0000 [facility] Episode Duration 1,480 s [facility] Episode Identifier 54025 [facility] Episode Type Category Monitor [facility] Episode Date Time [id number] 8+0000 [facility] Episode Duration 230 s [facility] Episode Identifier 55538 [facility] Episode Type Category Monitor [facility] Episode Date Time [id number] 1+0000 [facility] Episode Duration 44 s [facility] Episode Identifier 22903 [facility] Episode Type Category Monitor [facility] Episode [facility] Time [id number] 8+0000 [facility] Episode Duration 435 s [facility] Episode Identifier 31925 [facility] Episode Type Category Monitor [facility] Episode [facility] Time [id number] 3+0000 [facility] Episode Duration 600 s [facility] Episode Identifier 85922 [facility] Episode Type Category Monitor [facility] Episode Date Time [id number] 3+0000 [facility] Episode Duration 205 s [facility] Episode Identifier 62585 [facility] Episode Type Category Monitor [facility] Episode Date [facility] 7592982200858 0+0000 [facility] Episode Duration 384 s [facility] Episode Ident[facility] 79193 [facility] Episode Type Category Monitor [facility] [facility] Episode Date Time [id number] 3+0000 [facility] Episode Duration 26 s [facility] Episode Identifier [id number] [facility] Episode Type Category Monitor [facility] Episode Date Time [id number] 8+0000 [facility] Episode Duration 3,718 s [facility] Episode Identifier 34240 [facility] Episode Type Category Monitor [facility] Episode Date Time [id number] 1+0000 [facility] Episode Duration 633 s [facility] Episode Ident[facility] 84570 [facility] Episode Type Category Monitor [facility] Episode Date Time [id number] 9+0000 [facility] Episode Duration 844 s [facility] Episode Identifier 18928 [facility] Episode Type Category Monitor [facility] Episode Date Time [id number] 7+0000 [facility] Episode Duration 145 s [facility] Episode Ident[facility] [id number] [facility] Episode Type Category Monitor [facility] Episode Date Time [id number] 2+0000 [facility] Episode Duration 271 s [facility] 08/18/2023 3:34 AM EST Narrative [facility] - 08/30/2023 5:18 PM EDT A remote CIED transmission was received and reviewed on the following patient: Patient Name Gisela Hood Askwith Summary Pacemaker Interrogation. All available lead measurements are stable. Events since last evaluation shows multiple AF detections pt is on Xeralto . Estimated battery longevity ~ 13.6 years. AP 17% SYSTEM TECHNOLOGIST 2% Recheck in 3 months. us Robbie Solis MD [facility] C[facility]IAC SERVICES ORD ERABLES Final Result [facility] [address] [place] [address] * DEVICE CHECK: PPM IN-HOME INTERROGATION (05/20/2023 11:01 AM EST) Date Time Interrogation Session [id number] 9+0000 [facility] Implantable Pulse Generator Speaker Mounter Medtronic [facility] [employer]Silicon Implantable Pulse Generator Model [id number] ZENG [facility] Implantable Pulse Generator Serial Number [id number] [facility] Type Interrogation Session Remote Scheduled [facility] Clinic Name Cardiac Device Clinic [facility] Implantable Pulse Generator Type Pacemaker [facility] Jayce Setting Mode (NBG Code) MVP AAI DDD [facility] Jayce Setting Lower Rate Limit 60 {beats}/ min [facility] Jayce Setting Maximum Tracking Rate 130 {beats}/ min [facility] Jayce Setting Maximum Sensor Rate 130 {beats}/ min [facility] Jayce Setting Hysterisis Rate DISABLED [facility] Jayce Setting OPAL Delay Low 150 ms [facility] Jayce Setting PAV Delay Low 180 ms [facility] Jayce Setting AT Mode Switch Rate 171 {beats}/ min [facility] Lead Channel Setting Sensing Polarity Bipolar [facility] Lead Channel Setting Sensing Anode Location Right Atrium [facility] Lead Channel Setting Sensing Anode Terminal Ring [facility] Lead Channel Setting Sensing Cathode Location Right Atrium [facility] Lead Channel Setting Sensing Cathode Terminal Tip [facility] Lead Channel Setting Sensing Sensitivity 0.3 mV [facility] Lead Channel Setting Sensing Polarity Bipolar [facility] Lead Channel Setting Sensing Anode Location Right Ventricle [facility] Lead Channel Setting Sensing Anode Terminal Ring [facility] Lead Channel Setting Sensing Cathode Location Right Ventricle [facility] Lead Channel Setting Sensing Cathode Terminal Tip [facility] Lead Channel Setting Sensing Sensitivity 0.9 mV [facility] Lead Channel Setting Pacing Polarity Bipolar [facility] Lead Channel Setting Pacing Anode Location Right Atrium [facility] Lead Channel Setting Pacing Anode Terminal Ring [facility] Lead Channel Setting Sensing Cathode Location Right Atrium [facility] Lead Channel Setting Sensing Cathode Terminal Tip [facility] Lead Channel Setting Pacing Pulse Width 0.4 ms [facility] Lead Channel Setting RA Pacing Amplitude 1.5 V [facility] Lead Channel Setting Pacing Capture Mode Adaptive [facility] Lead Channel Setting Pacing Polarity Bipolar [facility] Lead Channel Setting Pacing Anode Location Right Ventricle [facility] Lead Channel Setting Pacing Anode Terminal Ring [facility] Lead Channel Setting Sensing Cathode Location Right Ventricle [facility] Lead Channel Setting Sensing Cathode Terminal Tip [facility] Lead Channel Setting Pacing Pulse Width 0.4 ms [facility] Lead Channel Setting Pacing Amplitude 4.5 V [facility] Lead Channel Setting Pacing Capture Mode Adaptive [facility] Zone Setting Type Category VF [facility] Zone Setting Vendor Type Category V High Rate [facility] Zone Setting Type Category VT [facility] Zone Setting Vendor Type Category FastVT [facility] Zone Setting Type Category VT [facility] Zone Setting Vendor Type Category VT [facility] Zone Setting Type Category [place] [facility] Zone Setting Vendor Type Category MonVT [facility] Zone Setting Status Monitor [facility] Zone Setting Detection Interval 400 ms [facility] Zone Setting Type Category ATRIAL_FIBRIL LATION [facility] Zone Setting Vendor Type Category FastATAF [facility] Zone Setting Type Category AT/AF [facility] Zone Setting Status Monitor [facility] Zone Setting Detection Interval 350 ms [facility] Atrial Impedance 475 ohm [facility] Atrial Impedance 380 ohm [facility] P Wave 2 mV [facility] P Wave 2 mV [facility] RA Threshold 0.5 V [facility] RA Threshold PW 0.4 ms [facility] RV Impedance 399 ohm [facility] RV Impedance 304 ohm [facility] R Wave 9.5 mV [facility] R Wave 9.5 mV [facility] RV Threshold 2.25 V [facility] RV Threshold PW 0.4 ms [facility] Battery Date Time of Measurements [id number] 2+0000 [facility] Battery Status OK [facility] Battery POSTING SPECIALIST Trigger 2.625 [facility] Battery Remaining Longevity 166 mo [facility] Battery Voltage 3.13 V [facility] Jayce Statistic Date Time Start [id number] 6+0000 [facility] Jayce Statistic Date Time End 9+0000 [facility] AP (%) 27.35 % [facility] SYSTEM TECHNOLOGIST (%) 1.81 % [facility] AP/SYSTEM TECHNOLOGIST % 0.59 % [facility] /SYSTEM TECHNOLOGIST % 0.11 % [facility] AP/VS % 43.29 % [facility] /VS % 56.26 % [facility] Atrial Tachy Statistic Date Time Start 6+0000 [facility] Atrial Tachy Statistic Date Time End 9+0000 [facility] Atrial Tachy Statistic AT/AF [place] Percent 39.9 % [facility] Therapy Statistic Recent Date Time Start 6+0000 [facility] Therapy Statistic Recent Date Time End 9+0000 [facility] Therapy Statistic Total Date Time Start 6+0000 [facility] Therapy Statistic Total Date Time End 9+0000 [facility] Episode Statistic Recent Count 7,599 [facility] Episode Statistic Type Category AT/AF [facility] Episode Statistic Recent Count 0 [facility] Episode Statistic Type Category Patient Activated [facility] Episode Statistic Recent Count 0 [facility] Episode Statistic Type Category SVT [facility] Episode Statistic Recent Count 1 [facility] Episode Statistic Type Category VT [facility] Episode Statistic Recent Count 0 [facility] Episode Statistic Type Category VT [facility] Episode Statistic Recent Date Time Start [id number] 6+0000 [facility] Episode Statistic Recent Date Time End [id number] 9+0000 [facility] Episode Statistic Recent Date Time Start 6+0000 [facility] Episode Statistic Recent Date Time End [id number] 9+0000 [facility] Episode Statistic Recent Date Time Start [id number] 6+0000 [facility] Episode Statistic Recent Date Time End [id number] 9+0000 [facility] Episode Statistic Recent Date Time Start [id number] 6+0000 [facility] Episode Statistic Recent Date Time End [id number] 9+0000 [facility] Episode Statistic Recent Date Time Start [id number] 6+0000 [facility] Episode Statistic Recent Date Time End [id number] 9+0000 [facility] Episode Statistic Total Count 23,984 [facility] Episode Statistic Type Category AT/AF [facility] Episode Statistic Total Count 0 [facility] Episode Statistic Type Category Patient Activated [facility] Episode Statistic Total Count 1 [facility] Episode Statistic Type Category SVT [facility] Episode Statistic Total Count 6 [facility] Episode Statistic Type Category VT [facility] Episode Statistic Total Count 0 [facility] Episode Statistic Type Category VT [facility] Episode Statistic Total Date Time Start [id number] 6+0000 [facility] Episode Statistic Total Date Time End [id number] 9+0000 [facility] Episode Statistic Total Date Time Start [id number] 6+0000 [facility] Episode Statistic Total Date Time End [id number] 9+0000 [facility] Episode Statistic Total Date Time Start [id number] 6+0000 [facility] Episode Statistic Total Date Time End [id number] 9+0000 [facility] Episode Statistic Total Date Time Start 7841784946401 6+0000 [facility] Episode Statistic Total Date Time End [id number] 9+0000 [facility] Episode Statistic Total Date Time Start [id number] 6+0000 [facility] Episode Statistic Total Date Time End 5019357026573 9+0000 [facility] Episode Identifier 81752 [facility] Episode Type Category VT [facility] Episode Date Time [id number] 1+0000 [facility] Episode Duration 1 s [facility] Episode Identifier 77213 [facility] Episode Type Category Monitor [facility] Episode Date Time [id number] 4+0000 [facility] Episode Identifier 82075 [facility] Episode Type Category Monitor [facility] Episode Date Time [id number] 8+0000 [facility] Episode Duration 80 s [facility] Episode Identifier 47553 [facility] Episode Type Category Monitor [facility] Episode Date Time [id number] 8+0000 [facility] Episode Duration 37 s [facility] Episode Identifier 13662 [facility] Episode Type Category Monitor [facility] Episode Date Time [id number] 9+0000 [facility] Episode Duration 836 s [facility] Episode Identifier 50766 [facility] Episode Type Category Monitor [facility] Episode Date Time 5816694520968 5+0000 [facility] Episode Duration 618 s [facility] Episode Identifier 66513 [facility] Episode Type Category Monitor [facility] Episode Date Time [id number] 2+0000 [facility] Episode Duration 40 s [facility] Episode Identifier 31491 [facility] Episode Type Category Monitor [facility] Episode Date Time [id number] 5+0000 [facility] Episode Duration 814 s [facility] Episode Identifier 26939 [facility] Episode Type Category Monitor [facility] Episode Date Time [id number] 3+0000 [facility] Episode Duration 1,190 s [facility] Episode Identifier 32138 [facility] Episode Type Category Monitor [facility] Episode Date [facility] 2075962320813 9+0000 [facility] Episode Duration 17 s [facility] Episode Identifier 05049 [facility] Episode Type Category Monitor [facility] Episode [facility] Time [id number] 8+0000 [facility] Episode Duration 133 s [facility] Episode Identifier 62423 [facility] Episode Type Category Monitor [facility] Episode Date Time [id number] 3+0000 [facility] Episode Duration 355 s [facility] Episode Identifier 99574 [facility] Episode Type Category Monitor [facility] Episode Date Time [id number] 8+0000 [facility] Episode Duration 311 s [facility] Episode Ident[facility] 06408 [facility] Episode Type Category Monitor [facility] Episode Date Time [id number] 1+0000 [facility] Episode Duration 8,931 s [facility] Episode Identifier 35308 [facility] Episode Type Category Monitor [facility] Episode Date Time 1468978117082 9+0000 [facility] Episode Duration 258 s [facility] Episode Identifier 46766 [facility] Episode Type Category Monitor [facility] Episode Date Time [id number] 2+0000 [facility] Episode Duration 142 s [facility] Episode Identifier 97647 [facility] Episode Type Category Monitor [facility] Episode Date Time [id number] 5+0000 [facility] Episode Duration 229 s [facility] Episode Identifier 40885 [facility] Episode Type Category Monitor [facility] Episode Date Time [id number] 3+0000 [facility] Episode Duration 257 s [facility] Episode Identifier 77807 [facility] Episode Type Category Monitor [facility] Episode Date Time [id number] 0+0000 [facility] Episode Duration 190 s [facility] Episode Identifier 34763 [facility] Episode Type Category Monitor [facility] Episode Date Time [id number] 7+0000 [facility] Episode Duration 93 s [facility] Episode Identifier 86718 [facility] Episode Type Category Monitor [facility] Episode Date Time [id number] 9+0000 [facility] Episode Duration 1,251 s [facility] Episode Identifier 60839 [facility] Episode Type Category Monitor [facility] Episode Date Time [id number] 3+0000 [facility] Episode Duration 302 s [facility] Episode Identifier 36228 [facility] Episode Type Category Monitor [facility] Episode Date Time [id number] 9+0000 [facility] Episode Duration 989 s [facility] Episode Identifier 55636 [facility] Episode Type Category Monitor [facility] Episode Date [facility] [id number] 8+0000 [facility] Episode Duration 56 s [facility] Episode Identifier 73345 [facility] Episode Type Category Monitor [facility] Episode Date Time [id number] 2+0000 [facility] Episode Duration 2,102 s [facility] Episode Identifier 55639 [facility] Episode Type Category Monitor [facility] Episode Date Time [id number] 4+0000 [facility] Episode Duration 1,507 s [facility] Episode Identifier 73999 [facility] Episode Type Category Monitor [facility] Episode Date Time [id number] 0+0000 [facility] Episode Duration 891 s [facility] Episode Ident[facility] 52015 [facility] Episode Type Category Monitor [facility] Episode [facility] Time [id number] 4+0000 [facility] Episode Duration 355 s [facility] Episode Identifier 38563 [facility] Episode Type Category Monitor [facility] Episode Date [facility] [id number] 8+0000 [facility] Episode Duration 33 s [facility] Episode Identifier 05822 [facility] Episode Type Category Monitor [facility] Episode Date Time [id number] 8+0000 [facility] Episode Duration 9,308 s [facility] Episode Identifier 16513 [facility] Episode Type Category Monitor [facility] Episode Date Time [id number] 1+0000 [facility] Episode Duration 174 s [facility] Episode Identifier 11881 [facility] Episode Type Category Monitor [facility] Episode Date Time [id number] 4+0000 [facility] Episode Duration 137 s [facility] Episode Identifier 38957 [facility] Episode Type Category Monitor [facility] Episode Date Time [id number] 9+0000 [facility] Episode Duration 1,613 s [facility] Episode Identifier 04512 [facility] Episode Type Category Monitor [facility] Episode Date Time [id number] 1+0000 [facility] Episode Duration 287 s [facility] Episode Identifier 43646 [facility] Episode Type Category Monitor [facility] Episode Date Time [id number] 8+0000 [facility] Episode Duration 3,031 s [facility] Episode Identifier 26745 [facility] Episode Type Category Monitor [facility] Episode Date Time [id number] 6+0000 [facility] Episode Duration 60 s [facility] Episode Identifier 52716 [facility] Episode Type Category Monitor [facility] Episode Date Time [id number] 7+0000 [facility] Episode Duration 1,627 s [facility] Episode Identifier 69967 [facility] Episode Type Category Monitor [facility] Episode Date Time [id number] 3+0000 [facility] Episode Duration 322 s [facility] Episode Identifier 28765 [facility] Episode Type Category Monitor [facility] Episode Date Time [id number] 7+0000 [facility] Episode Duration 95 s [facility] Episode Identifier 40775 [facility] Episode Type Category Monitor [facility] Episode Date Time [id number] 2+0000 [facility] Episode Duration 804 s [facility] Episode Identifier 23461 [facility] Episode Type Category Monitor [facility] Episode Date Time [id number] 0+0000 [facility] Episode Duration 169 s [facility] Episode Identifier 94052 [facility] Episode Type Category Monitor [facility] Episode Date Time [id number] 0+0000 [facility] Episode Duration 1,538 s [facility] Episode Identifier 38169 [facility] Episode Type Category Monitor [facility] Episode Date Time [id number] 2+0000 [facility] Episode Duration 66 s [facility] Episode Identifier 78777 [facility] Episode Type Category Monitor [facility] Episode Date Time [id number] 4+0000 [facility] Episode Duration 630 s [facility] Episode Identifier 73935 [facility] Episode Type Category Monitor [facility] Episode Date Time [id number] 3+0000 [facility] Episode Duration 2,128 s [facility] Episode Identifier 20525 [facility] Episode Type Category Monitor [facility] Episode Date Time [id number] 8+0000 [facility] Episode Duration 483 s [facility] Episode Ident[facility] 52311 [facility] Episode Type Category Monitor [facility] Episode Date Time 1860389449620 3+0000 [facility] Episode Duration 192 s [facility] Episode Identifier 28696 [facility] Episode Type Category Monitor [facility] Episode Date Time [id number] 8+0000 [facility] Episode Duration 423 s [facility] Episode Identifier 89164 [facility] Episode Type Category Monitor [facility] Episode Date Time [id number] 6+0000 [facility] Episode Duration 256 s [facility] Episode Identifier 66483 [facility] Episode Type Category Monitor [facility] Episode Date Time [id number] 6+0000 [facility] Episode Duration 38 s [facility] Episode Ident[facility] 04703 [facility] Episode Type Category Monitor [facility] Episode Date Time [id number] 4+0000 [facility] Episode Duration 540 s [facility] Episode Identifier 46991 [facility] Episode Type Category Monitor [facility] Episode Date Time [id number] 0+0000 [facility] Episode Duration 881 s [facility] 05/19/2023 10:5 0 PM EST Narrative [facility] - 06/07/2023 10:12 PM EST A remote CIED transmission was received and reviewed on the following patient: Patient Name Gisela Hood Askwith Summary Pacemaker Interrogation. All available lead measurements are stable. Events since last evaluation show (7,599) AT/AF detections that account for AT/AF burden of 39.9%. Patient is on Xarelto. (1) [place]-NS detection that is consistent with AF w RVR and not NSVT. Estimated battery longevity ~ 13.9 years. SYSTEM TECHNOLOGIST 1.8% (MVP On) AP 27.4% Recheck in 3 months. The above results are in technical terms, you will be contacted if they are of concern. Robbie Solis MD CV CARDIAC SERVICES ORD ERABLES Final Result Performing Organization Address City/[facility] Co de Phone Number [facility] [address] [place] [address] * DEVICE CHECK: PPM IN-HOME INTERROGATION (02/18/2023 4:40 PM EDT) Date Time Interrogation Session [id number] [facility] [employer] Implantable Pulse Generator Speaker Mounter Medtronic [employer] Implantable Pulse Generator Model [id number] [place] XT DR ZENG [facility] [employer] Implantable Pulse Generator Serial Number [id number] [facility] Type Interrogation Session Remote [facility] Clinic Name Cardiac Device Clinic [facility] Implantable Pulse Generator Type Pacemaker [facility] 02/18/2023 4:38 PM EDT Narrative [facility] - 03/15/2023 9:57 PM EDT A remote CIED transmission was received and reviewed on the following patient: Patient Name Gisela Hood Askwith Summary Pacemaker Interrogation. All available lead measurements are stable. Events since last evaluation shows multiple AF detections accounting for 37.6% pt is on Xeralto. Estimated battery longevity ~ 14.3 years. AP 29.7% SYSTEM TECHNOLOGIST 1.6% Recheck in 3 months. Robbie Solis MD CV CARDIAC SERVICES ORD ERABLES Final Result Performing Organization Address [facility] Co de Phone Number [facility] [employer] [address] [place] [address] * DEVICE CHECK: PPM IN-HOME INTERROGATION (11/19/2022 9:59 AM EDT) Date Time Interrogation Session [id number] 5+0000 [employer] Implantable Pulse Generator Speaker Mounter Medtronic [facility] Implantable Pulse Generator Model [id number] [place] XT DR ZENG [facility] Implantable Pulse Generator Serial Number [id number] [facility] Type Interrogation Session Remote Scheduled [facility] Clinic Name [facility] [facility] Implantable Pulse Generator Type Pacemaker [facility] Jayce Setting Mode (NBG Code) MVP AAI DDD [facility] Jayce Setting Lower Rate Limit 60 {beats}/ min [facility] Jayce Setting Maximum Tracking Rate 130 {beats}/ min [facility] Jayce Setting Maximum Sensor Rate 130 {beats}/ min [facility] Jayce Setting Hysterisis Rate DISABLED [facility] Jayce Setting OPAL Delay Low 150 ms [facility] Jayce [facility] PAV Delay Low 180 ms [facility] Jayce Setting AT Mode Switch Rate 171 {beats}/ min [facility] Lead Channel Setting Sensing Polarity Bipolar [facility] Lead Channel Setting Sensing Anode Location Right Atrium [facility] Lead Channel Setting Sensing Anode Terminal Ring [facility] Lead Channel Setting Sensing Cathode Location Right Atrium [facility] Lead Channel Setting Sensing Cathode Terminal Tip [facility] Lead Channel Setting Sensing Sensitivity 0.3 mV [facility] Lead Channel Setting Sensing Polarity Bipolar [facility] Lead Channel Setting Sensing Anode Location Right Ventricle [facility] Lead Channel Setting Sensing Anode Terminal Ring [facility] Lead Channel Setting Sensing Cathode Location Right Ventricle [facility] Lead Channel Setting Sensing Cathode Terminal Tip [facility] Lead Channel Setting Sensing Sensitivity 0.9 mV [facility] Lead Channel Setting Pacing Polarity Bipolar [facility] Lead Channel Setting Pacing Anode Location Right Atrium [facility] Lead Channel Setting Pacing Anode Terminal Ring [facility] Lead Channel Setting Sensing Cathode Location Right Atrium [facility] Lead Channel Setting Sensing Cathode Terminal Tip [facility] Lead Channel Setting Pacing Pulse Width 0.4 ms [facility] Lead Channel Setting RA Pacing Amplitude 1.5 V [facility] Lead Channel Setting Pacing Capture Mode Adaptive [facility] Lead Channel Setting Pacing Polarity Bipolar [facility] Lead Channel Setting Pacing Anode Location Right Ventricle [facility] Lead Channel Setting Pacing Anode Terminal Ring [facility] Lead Channel Setting Sensing Cathode Location Right Ventricle [facility] Lead Channel Setting Sensing Cathode Terminal Tip [facility] Lead Channel Setting Pacing Pulse Width 0.4 ms [facility] Lead Channel Setting Pacing Amplitude 2.5 V [facility] Lead Channel Setting Pacing Capture Mode Adaptive [facility] Zone Setting Type Category VF [facility] Zone Setting Vendor Type Category V High Rate [facility] Zone Setting Type Category [place] [facility] Zone Setting Vendor Type Category FastVT [facility] Zone Setting Type Category [place] [facility] Zone Setting Vendor Type Category [place] [facility] Zone Setting Type Category [place] [facility] Zone Setting Vendor Type Category MonVT [facility] Zone Setting Status Monitor [facility] Zone Setting Detection Interval 400 ms [facility] Zone Setting Type Category ATRIAL_FIBRIL LATION [facility] Zone Setting Vendor Type Category FastATAF [facility] Zone Setting Type Category AT/AF [facility] Zone Setting Status Monitor [facility] Zone Setting Detection Interval 350 ms [facility] Atrial Impedance 475 ohm [facility] Atrial Impedance 380 ohm [facility] P Wave 2.5 mV [facility] P Wave 2.5 mV [facility] RA Threshold 0.5 V [facility] RA Threshold PW 0.4 ms [facility] RV Impedance 418 ohm [facility] RV Impedance 342 ohm [facility] R Wave 11 mV [facility] R Wave 11 mV [facility] RV Threshold 1.125 V [facility] RV Threshold PW 0.4 ms [facility] Battery Date Time of Measurements 2+0000 [facility] Battery Status OK [facility] Battery POSTING SPECIALIST Trigger 2.625 [facility] Battery Remaining Longevity 175 mo [facility] Battery Voltage 3.21 V [facility] Jayce Statistic Date Time Start 9+0000 [facility] Jayce Statistic Date Time End 5+0000 [facility] AP (%) 29.63 % [facility] SYSTEM TECHNOLOGIST (%) 1.6 % [facility] AP/SYSTEM TECHNOLOGIST % 0.57 % [facility] /SYSTEM TECHNOLOGIST % 0.09 % [facility] AP/VS % 40.79 % [facility] /VS % 58.73 % [facility] Atrial Tachy Statistic Date Time Start 9+0000 [facility] Atrial Tachy Statistic Date Time End 5+0000 [facility] Atrial Tachy Statistic AT/AF [place] Percent 30.4 % [facility] Therapy Statistic Recent Date Time Start 9+0000 [facility] Therapy Statistic Recent Date Time End 5+0000 [facility] Therapy Statistic Total Date Time Start 6+0000 [facility] Therapy Statistic Total Date Time End 5+0000 [facility] Episode Statistic Recent Count 7,296 [facility] Episode Statistic Type Category AT/AF [facility] Episode Statistic Recent Count 0 [facility] Episode Statistic Type Category Patient Activated [facility] Episode [facility]istic Recent Count 1 [facility] Episode Statistic Type Category SVT [facility] Episode Statistic Recent Count 2 [facility] Episode Statistic Type Category [place] [facility] Episode Statistic Recent Count 0 [facility] Episode Statistic Type Category [place] [facility] Episode Statistic Recent Date Time Start 9+0000 [facility] Episode Statistic Recent Date Time End [id number] 5+0000 [facility] Episode Statistic Recent Date Time Start [id number] 9+0000 [facility] Episode Statistic Recent Date Time End [id number] 5+0000 [facility] Episode Statistic Recent Date Time Start [id number] 9+0000 [facility] Episode Statistic Recent Date Time End [id number] 5+0000 [facility] Episode Statistic Recent Date Time Start [id number] 9+0000 [facility] Episode Statistic Recent Date Time End [id number] 5+0000 [facility] Episode Statistic Recent Date Time Start [id number] 9+0000 [facility] Episode Statistic Recent Date Time End [id number] 5+0000 [facility] Episode Statistic Total Count 9,657 [facility] Episode Statistic Type Category AT/AF [facility] Episode Statistic Total Count 0 [facility] Episode Statistic Type Category Patient Activated [facility] Episode Statistic Total Count 1 [facility] Episode Statistic Type Category SVT [facility] Episode Statistic Total Count 5 [facility] Episode Statistic Type Category [place] [facility] Episode Statistic Total Count 0 [facility] Episode Statistic Type Category [place] [facility] Episode Statistic Total Date Time Start [id number] 6+0000 [facility] Episode Statistic Total Date Time End [id number] 5+0000 [facility] Episode Statistic Total Date Time Start [id number] 6+0000 [facility] Episode Statistic Total Date Time End [id number] 5+0000 [facility] Episode Statistic Total Date Time Start [id number] 6+0000 [facility] Episode Statistic Total Date Time End [id number] 5+0000 [facility] Episode Statistic Total Date Time Start [id number] 6+0000 [facility] Episode Statistic Total Date Time End [id number] 5+0000 [facility] Episode Statistic Total Date Time Start [id number] 6+0000 [facility] Episode Statistic Total Date Time End [id number] 5+0000 [facility] Episode Identifier 5647 [facility] Episode Type Category SVT [facility] Episode Date Time [id number] 8+0000 [facility] Episode Duration 15 s [facility] Episode Identifier 6086 [facility] Episode Type Category [place] [facility] Episode Date Time [id number] 2+0000 [facility] Episode Duration 1 s [facility] Episode Identifier 5645 [facility] Episode Type Category [place] [facility] Episode Date Time [id number] 4+0000 [facility] Episode Duration 3 s [facility] Episode Identifier 7206 [facility] Episode Type Category FastAandV [facility] Episode Date Time [id number] 2+0000 [facility] Episode Duration 16 s [facility] Episode Identifier 9664 [facility] Episode Type Category Monitor [facility] Episode Date Time [id number] 8+0000 [facility] Episode Identifier 9663 [facility] Episode Type Category Monitor [facility] Episode Date Time [id number] 6+0000 [facility] Episode Duration 27 s [facility] Episode Identifier 9662 [facility] Episode Type Category Monitor [facility] Episode Date Time [id number] 3+0000 [facility] Episode Duration 24 s [facility] Episode Identifier 9661 [facility] Episode Type Category Monitor [facility] Episode Date Time [id number] 0+0000 [facility] Episode Duration 125 s [facility] Episode Identifier 9660 [facility] Episode Type Category Monitor [facility] Episode Date Time [id number] 7+0000 [facility] Episode Duration 29 s [facility] Episode Identifier 9659 [facility] Episode Type Category Monitor [facility] Episode Date Time [id number] 8+0000 [facility] Episode Duration 120 s [facility] Episode Identifier 9658 [facility] Episode Type Category Monitor [facility] Episode Date Time [id number] 7+0000 [facility] Episode Duration 294 s [facility] Episode Identifier 9657 [facility] Episode Type Category Monitor [facility] Episode Date Time [id number] 4+0000 [facility] Episode Duration 383 s [facility] Episode Identifier 9656 [facility] Episode Type Category Monitor [facility] Episode Date Time [id number] 2+0000 [facility] Episode Duration 2,373 s [facility] Episode Identifier 9655 [facility] Episode Type Category Monitor [facility] Episode Date Time [id number] 4+0000 [facility] Episode Duration 9,886 s [facility] Episode Identifier 9654 [facility] Episode Type Category Monitor [facility] Episode Date Time [id number] 2+0000 [facility] Episode Duration 130 s [facility] Episode Identifier 9653 [facility] Episode Type Category Monitor [facility] Episode Date Time [id number] 5+0000 [facility] Episode Duration 3,373 s [facility] Episode Identifier 9652 [facility] Episode Type Category Monitor [facility] Episode Date Time [id number] 6+0000 [facility] Episode Duration 597 s [facility] Episode Identifier 9651 [facility] Episode Type Category Monitor [facility] Episode Date Time [id number] 3+0000 [facility] Episode Duration 5,580 s [facility] Episode Identifier 9650 [facility] Episode Type Category Monitor [facility] Episode Date Time [id number] 9+0000 [facility] Episode Duration 4,016 s [facility] Episode Identifier 9649 [facility] Episode Type Category Monitor [facility] Episode Date Time [id number] 9+0000 [facility] Episode Duration 407 s [facility] Episode Identifier 9648 [facility] Episode Type Category Monitor [facility] Episode Date Time [id number] 5+0000 [facility] Episode Duration 1,444 s [facility] Episode Identifier 9647 [facility] Episode Type Category Monitor [facility] Episode Date Time [id number] 3+0000 [facility] Episode Duration 5,910 s [facility] Episode Identifier 9646 [facility] Episode Type Category Monitor [facility] Episode Date Time [id number] 2+0000 [facility] Episode Duration 619 s [facility] Episode Identifier 9645 [facility] Episode Type Category Monitor [facility] Episode Date Time [id number] 7+0000 [facility] Episode Duration 492 s [facility] Episode Identifier 9644 [facility] Episode Type Category Monitor [facility] Episode Date Time [id number] 8+0000 [facility] Episode Duration 1,855 s [facility] Episode Identifier 9643 [facility] Episode Type Category Monitor [facility] Episode Date Time [id number] 3+0000 [facility] Episode Duration 393 s [facility] Episode Identifier 9642 [facility] Episode Type Category Monitor [facility] Episode Date Time [id number] 6+0000 [facility] Episode Duration 745 s [facility] Episode Identifier 9641 [facility] Episode Type Category Monitor [facility] Episode Date Time [id number] 6+0000 [facility] Episode Duration 616 s [facility] Episode Identifier 9640 [facility] Episode Type Category Monitor [facility] Episode Date Time [id number] 3+0000 [facility] Episode Duration 712 s [facility] Episode Identifier 9639 [facility] Episode Type Category Monitor [facility] Episode Date Time [id number] 8+0000 [facility] Episode Duration 177 s [facility] Episode Identifier 9638 [facility] Episode Type Category Monitor [facility] Episode Date Time [id number] 2+0000 [facility] Episode Duration 144 s [facility] Episode Identifier 9637 [facility] Episode Type Category Monitor [facility] Episode Date Time [id number] 3+0000 [facility] Episode Duration 894 s [facility] Episode Identifier 9636 [facility] Episode Type Category Monitor [facility] Episode Date Time [id number] 1+0000 [facility] Episode Duration 489 s [facility] Episode Identifier 9635 [facility] Episode Type Category Monitor [facility] Episode Date Time [id number] 8+0000 [facility] Episode Duration 130 s [facility] Episode Identifier 9634 [facility] Episode Type Category Monitor [facility] Episode Date Time [id number] 2+0000 [facility] Episode Duration 113 s [facility] Episode Identifier 9633 [facility] Episode Type Category Monitor [facility] Episode Date Time [id number] 2+0000 [facility] Episode Duration 78 s [facility] Episode Identifier 9632 [facility] Episode Type Category Monitor [facility] Episode Date Time [id number] 1+0000 [facility] Episode Duration 258 s [facility] Episode Identifier 9631 [facility] Episode Type Category Monitor [facility] Episode Date Time [id number] 6+0000 [facility] Episode Duration 521 s [facility] Episode Identifier 9630 [facility] Episode Type Category Monitor [facility] Episode Date Time [id number] 6+0000 [facility] Episode Duration 407 s [facility] Episode Identifier 9629 [facility] Episode Type Category Monitor [facility] Episode Date Time [id number] 3+0000 [facility] Episode Duration 333 s [facility] Episode Identifier 9628 [facility] Episode Type Category Monitor [facility] Episode Date Time [id number] 0+0000 [facility] Episode Duration 489 s [facility] Episode Identifier 9627 [facility] Episode Type Category Monitor [facility] Episode Date Time [id number] 7+0000 [facility] Episode Duration 469 s [facility] Episode Identifier 9626 [facility] Episode Type Category Monitor [facility] Episode Date Time [id number] 1+0000 [facility] Episode Duration 323 s [facility] Episode Identifier 9625 [facility] Episode Type Category Monitor [facility] Episode Date Time [id number] 1+0000 [facility] Episode Duration 106 s [facility] Episode Identifier 9624 [facility] Episode Type Category Monitor [facility] Episode Date [facility] [id number] 1+0000 [facility] Episode Duration 119 s [facility] Episode Identifier 9623 [facility] Episode Type Category Monitor [facility] Episode Date Time [id number] 0+0000 [facility] Episode Duration 57 s [facility] Episode Identifier 9622 [facility] Episode Type Category Monitor [facility] Episode Date Time [id number] 0+0000 [facility] Episode Duration 1,012 s [facility] Episode Identifier 9621 [facility] Episode Type Category Monitor [facility] Episode Date Time [id number] 2+0000 [facility] Episode Duration 141 s [facility] Episode Identifier 9620 [facility] Episode Type Category Monitor [facility] Episode Date Time [id number] 8+0000 [facility] Episode Duration 1,240 s [facility] Episode Identifier 9619 [facility] Episode Type Category Monitor [facility] Episode Date Time [id number] 6+0000 [facility] Episode Duration 368 s [facility] Episode Identifier 9618 [facility] Episode Type Category Monitor [facility] Episode Date Time [id number] 1+0000 [facility] Episode Duration 1,087 s [facility] Episode Identifier 9617 [facility] Episode Type Category Monitor [facility] Episode Date Time [id number] 0+0000 [facility] Episode Duration 476 s [facility] Episode Identifier 9616 [facility] Episode Type Category Monitor [facility] Episode Date Time [id number] 5+0000 [facility] Episode Duration 23 s [facility] Episode Identifier 9615 [facility] Episode Type Category Monitor [facility] Episode Date Time [id number] 2+0000 [facility] Episode Duration 2,398 s [facility] Episode Identifier 9614 [facility] Episode Type Category Monitor [facility] Episode Date Time [id number] 4+0000 [facility] Episode Duration 844 s [facility] 11/19/2022 4:11 AM EDT Narrative [facility] - 12/14/2022 10:15 AM EDT A remote CIED transmission was received and reviewed on the following patient: Patient Name Gisela Hood Askwith Summary Pacemaker Interrogation. All available lead measurements are stable. Events since last evaluation show (1) SVT and (2) NSVT detections ~170 bpm. (8) AT/AF c/w AF with RVR. AF burden 30.9%. pt is on Xeralto. Estimated battery longevity ~ 14.6 years. Recheck in 3 months. us Robbie Solis MD CV CARDIAC SERVICES ORD ERABLES Final Result [facility] [address] [place] [address] * DEVICE CHECK: PPM IN-PERSON PROGRAMMING DUAL LEAD (08/20/2022 1:11 PM EST) Date Time Interrogation Session [id number] 2+0000 [facility] Implantable Pulse Generator Speaker Mounter Medtronic [facility] eSilicon Implantable Pulse Generator Model [id number] Rosiofederico ZENG [facility] Implantable Pulse Generator Serial Number [id number] [facility] Type Interrogation Session In Clinic [facility] Clinic Name Cardiac Device Clinic [facility] Implantable Pulse Generator Type Pacemaker [facility] Jayce Setting Mode (NBG Code) MVP AAI DDD [facility] Jayce Setting Lower Rate Limit 60 {beats}/ min [facility] Jayce Setting Maximum Tracking Rate 130 {beats}/ min [facility] Jayce Setting Maximum Sensor Rate 130 {beats}/ min [facility] Jayce Setting Hysterisis Rate DISABLED [facility] Jayce Setting OPAL Delay Low 150 ms [facility] Jayce Setting PAV Delay Low 180 ms [facility] Jayce Setting AT Mode Switch Rate 171 {beats}/ min [facility] Lead Channel Setting Sensing Polarity Bipolar [facility] Lead Channel Setting Sensing Anode Location Right Atrium [facility] Lead Channel Setting Sensing Anode Terminal Ring [facility] Lead Channel Setting Sensing Cathode Location Right Atrium [facility] Lead Channel Setting Sensing Cathode Terminal Tip [facility] Lead Channel Setting Sensing Sensitivity 0.3 mV [facility] Lead Channel Setting Sensing Polarity Bipolar [facility] Lead Channel Setting Sensing Anode Location Right Ventricle [facility] Lead Channel Setting Sensing Anode Terminal Ring [facility] Lead Channel Setting Sensing Cathode Location Right Ventricle [facility] Lead Channel Setting Sensing Cathode Terminal Tip [facility] Lead Channel Setting Sensing Sensitivity 0.9 mV [facility] Lead Channel Setting Pacing Polarity Bipolar [facility] Lead Channel Setting Pacing Anode Location Right Atrium [facility] Lead Channel Setting Pacing Anode Terminal Ring [facility] Lead Channel Setting Sensing Cathode Location Right Atrium [facility] Lead Channel Setting Sensing Cathode Terminal Tip [facility] Lead Channel Setting Pacing Pulse Width 0.4 ms [facility] Lead Channel Setting RA Pacing Amplitude 2.5 V [facility] Lead Channel Setting Pacing Capture Mode Adaptive [facility] Lead Channel Setting Pacing Polarity Bipolar [facility] Lead Channel Setting Pacing Anode Location Right Ventricle [facility] Lead Channel Setting Pacing Anode Terminal Ring [facility] Lead Channel Setting Sensing Cathode Location Right Ventricle [facility] Lead Channel Setting Sensing Cathode Terminal Tip [facility] Lead Channel Setting Pacing Pulse Width 0.4 ms [facility] Lead Channel Setting Pacing Amplitude 2.5 V [facility] Lead Channel Setting Pacing Capture Mode Adaptive [facility] Zone Setting Type Category VF [facility] Zone Setting Vendor Type Category V High Rate [facility] Zone Setting Type Category [place] [facility] Zone Setting Vendor Type Category FastVT [facility] Zone Setting Type Category [place] [facility] Zone Setting Vendor Type Category [place] [facility] Zone Setting Type Category [place] [facility] Zone Setting Vendor Type Category MonVT [facility] Zone Setting Status Monitor [facility] Zone Setting Detection Interval 400 ms [facility] Zone Setting Type Category ATRIAL_FIBRIL LATION [facility] Zone Setting Vendor Type Category FastATAF [facility] Zone Setting Type Category AT/AF [facility] Zone Setting Status Monitor [facility] Zone Setting Detection Interval 350 ms [facility] Atrial Impedance 551 ohm [facility] Atrial Impedance 361 ohm [facility] P Wave 2.25 mV [facility] P Wave 2.125 mV [facility] RA Threshold 0.5 V [facility] RA Threshold PW 0.4 ms [facility] RV Impedance 513 ohm [facility] RV Impedance 323 ohm [facility] R Wave 11.625 mV [facility] R Wave 12.375 mV [facility] RV Threshold 1.5 V [facility] RV Threshold PW 0.4 ms [facility] Battery Date Time of Measurements 2+0000 [facility] Battery Status OK [facility] Battery POSTING SPECIALIST Trigger 2.625 [facility] Battery Remaining Longevity 176 mo [facility] Battery Voltage 3.22 V [facility] Jayce Statistic Date Time Start 0+0000 [facility] Jayce Statistic Date Time End 2+0000 [facility] AP (%) 20.17 % [facility] SYSTEM TECHNOLOGIST (%) 1.28 % [facility] AP/SYSTEM TECHNOLOGIST % 0.42 % [facility] /SYSTEM TECHNOLOGIST % 0.11 % [facility] AP/VS % 28.8 % [facility] /VS % 70.87 % [facility] Atrial Tachy Statistic Date Time Start 0+0000 [facility] Atrial Tachy Statistic Date Time End 2+0000 [facility] Atrial Tachy Statistic AT/AF [place] Percent 33.6 % [facility] Therapy Statistic Recent Date Time Start 0+0000 [facility] Therapy Statistic Recent Date Time End 2+0000 [facility] Episode Statistic Recent Count 2,323 [facility] Episode Statistic Type Category AT/AF [facility] Episode [facility]istic Recent Count 3 [facility] Episode Statistic Type Category [place] [facility] Episode Statistic Recent Count 0 [facility] Episode Statistic Type Category [place] [facility] Episode Statistic Recent Date Time Start 0+0000 [facility] Episode Statistic Recent Date Time End 2+0000 [facility] Episode Statistic Recent Date Time Start 0+0000 [facility] Episode Statistic Recent Date Time End 2+0000 [facility] Episode Statistic Recent Date Time Start 0+0000 [facility] Episode Statistic Recent Date Time End 2+0000 [facility] Episode Statistic Total Count 2,323 [facility] Episode Statistic Type Category AT/AF [facility] Episode Statistic Total Count 3 [facility] Episode Statistic Type Category [place] [facility] Episode Statistic Total Count 0 [facility] Episode Statistic Type Category [place] [facility] Episode Statistic Total Date Time Start 6+0000 [facility] Episode Statistic Total Date Time End 2+0000 [facility] Episode Statistic Total Date Time Start 6+0000 [facility] Episode Statistic Total Date Time End 2+0000 [facility] Episode Statistic Total Date Time Start 6+0000 [facility] Episode Statistic Total Date Time End 2+0000 [facility] Episode Identifier 1234 [facility] Episode Type Category [place] [facility] Episode Date Time [id number] 9+0000 [facility] Episode Duration 1 s [facility] Episode Identifier 1233 [facility] Episode Type Category [place] [facility] Episode Date Time [id number] 6+0000 [facility] Episode Duration 0 s [facility] Episode Identifier 1231 [facility] Episode Type Category [place] [facility] Episode Date Time [id number] 0+0000 [facility] Episode Duration 0 s [facility] Episode Identifier 2326 [facility] Episode Type Category Monitor [facility] Episode Date Time [id number] 0+0000 [facility] Episode Duration 245 s [facility] Episode Identifier 2325 [facility] Episode Type Category Monitor [facility] Episode Date Time [id number] 0+0000 [facility] Episode Duration 109 s [facility] Episode Identifier 2324 [facility] Episode Type Category Monitor [facility] Episode Date Time [id number] 7+0000 [facility] Episode Duration 25 s [facility] Episode Identifier 2323 [facility] Episode Type Category Monitor [facility] Episode Date [facility] [id number] 5+0000 [facility] Episode Duration 489 s [facility] Episode Identifier 2322 [facility] Episode Type Category Monitor [facility] Episode Date Time [id number] 7+0000 [facility] Episode Duration 192 s [facility] Episode Identifier 2321 [facility] Episode Type Category Monitor [facility] Episode [facility] Time [id number] 7+0000 [facility] Episode Duration 87 s [facility] Episode Identifier 2320 [facility] Episode Type Category Monitor [facility] Episode Date Time [id number] 5+0000 [facility] Episode Duration 94 s [facility] Episode Identifier 2319 [facility] Episode Type Category Monitor [facility] Episode Date Time [id number] 0+0000 [facility] Episode Duration 58 s [facility] Episode Identifier 2318 [facility] Episode Type Category Monitor [facility] Episode Date Time [id number] 3+0000 [facility] Episode Duration 26 s [facility] Episode Identifier 2317 [facility] Episode Type Category Monitor [facility] Episode Date Time [id number] 5+0000 [facility] Episode Duration 8 s [facility] Episode Identifier 2316 [facility] Episode Type Category Monitor [facility] Episode Date Time [id number] 4+0000 [facility] Episode Duration 21 s [facility] Episode Identifier 2315 [facility] Episode Type Category Monitor [facility] Episode Date Time [id number] 3+0000 [facility] Episode Duration 105 s [facility] Episode Identifier 2314 [facility] Episode Type Category Monitor [facility] Episode Date [facility] [id number] 3+0000 [facility] Episode Duration 31 s [facility] Episode Identifier 2313 [facility] Episode Type Category Monitor [facility] Episode Date Time [id number] 6+0000 [facility] Episode Duration 253 s [facility] Episode Identifier 2312 [facility] Episode Type Category Monitor [facility] Episode Date [facility] [id number] 8+0000 [facility] Episode Duration 491 s [facility] Episode Identifier 2311 [facility] Episode Type Category Monitor [facility] Episode Date Time [id number] 8+0000 [facility] Episode Duration 634 s [facility] Episode Identifier 2310 [facility] Episode Type Category Monitor [facility] Episode Date Time [id number] 0+0000 [facility] Episode Duration 2,909 s [facility] Episode Identifier 2309 [facility] Episode Type Category Monitor [facility] Episode Date Time [id number] 6+0000 [facility] Episode Duration 502 s [facility] Episode Identifier 2308 [facility] Episode Type Category Monitor [facility] Episode Date Time [id number] 2+0000 [facility] Episode Duration 98 s [facility] Episode Identifier 2307 [facility] Episode Type Category Monitor [facility] Episode Date Time [id number] 3+0000 [facility] Episode Duration 136 s [facility] Episode Identifier 2306 [facility] Episode Type Category Monitor [facility] Episode [facility] Time [id number] 5+0000 [facility] Episode Duration 135 s [facility] Episode Identifier 2305 [facility] Episode Type Category Monitor [facility] Episode Date [facility] [id number] 2+0000 [facility] Episode Duration 19 s [facility] Episode Identifier 2304 [facility] Episode Type Category Monitor [facility] Episode Date Time [id number] 2+0000 [facility] Episode Duration 57 s [facility] Episode Identifier 2303 [facility] Episode Type Category Monitor [facility] Episode Date [facility] [id number] 7+0000 [facility] Episode Duration 33 s [facility] Episode Identifier 2302 [facility] Episode Type Category Monitor [facility] Episode Date Time [id number] 0+0000 [facility] Episode Duration 405 s [facility] Episode Identifier 2301 [facility] Episode Type Category Monitor [facility] Episode Date Time [id number] 2+0000 [facility] Episode Duration 226 s [facility] Episode Identifier 2300 [facility] Episode Type Category Monitor [facility] Episode Date Time [id number] 1+0000 [facility] Episode Duration 6,185 s [facility] Episode Identifier 2299 [facility] Episode Type Category Monitor [facility] Episode Date Time [id number] 3+0000 [facility] Episode Duration 2,227 s [facility] Episode Identifier 2298 [facility] Episode Type Category Monitor [facility] Episode Date Time [id number] 4+0000 [facility] Episode Duration 209 s [facility] Episode Identifier 2297 [facility] Episode Type Category Monitor [facility] Episode Date Time [id number] 8+0000 [facility] Episode Duration 89 s [facility] Episode Identifier 2296 [facility] Episode Type Category Monitor [facility] Episode Date Time [id number] 0+0000 [facility] Episode Duration 596 s [facility] Episode Identifier 2295 [facility] Episode Type Category Monitor [facility] Episode Date Time [id number] 3+0000 [facility] Episode Duration 451 s [facility] Episode Identifier 2294 [facility] Episode Type Category Monitor [facility] Episode Date Time [id number] 6+0000 [facility] Episode Duration 130 s [facility] Episode Identifier 2293 [facility] Episode Type Category Monitor [facility] Episode Date Time [id number] 0+0000 [facility] Episode Duration 557 s [facility] Episode Identifier 2292 [facility] Episode Type Category Monitor [facility] Episode Date Time [id number] 6+0000 [facility] Episode Duration 1,152 s [facility] Episode Identifier 2291 [facility] Episode Type Category Monitor [facility] Episode Date Time [id number] 0+0000 [facility] Episode Duration 112 s [facility] Episode Identifier 2290 [facility] Episode Type Category Monitor [facility] Episode Date Time [id number] 1+0000 [facility] Episode Duration 26 s [facility] Episode Identifier 2289 [facility] Episode Type Category Monitor [facility] Episode Date Time [id number] 1+0000 [facility] Episode Duration 48 s [facility] Episode Identifier 2288 [facility] Episode Type Category Monitor [facility] Episode Date Time [id number] 4+0000 [facility] Episode Duration 126 s [facility] Episode Identifier 2287 [facility] Episode Type Category Monitor [facility] Episode Date Time [id number] 4+0000 [facility] Episode Duration 58 s [facility] Episode Identifier 2286 [facility] Episode Type Category Monitor [facility] Episode Date Time [id number] 4+0000 [facility] Episode Duration 257 s [facility] Episode Identifier 2285 [facility] Episode Type Category Monitor [facility] Episode Date Time [id number] 0+0000 [facility] Episode Duration 1,258 s [facility] Episode Identifier 2284 [facility] Episode Type Category Monitor [facility] Episode Date Time [id number] 7+0000 [facility] Episode Duration 54 s [facility] Episode Identifier 2283 [facility] Episode Type Category Monitor [facility] Episode Date Time [id number] 5+0000 [facility] Episode Duration 369 s [facility] Episode Identifier 2282 [facility] Episode Type Category Monitor [facility] Episode Date Time [id number] 4+0000 [facility] Episode Duration 740 s [facility] Episode Identifier 2281 [facility] Episode Type Category Monitor [facility] Episode Date Time [id number] 6+0000 [facility] Episode Duration 853 s [facility] Episode Ident[facility] 2280 [facility] Episode Type Category Monitor [facility] Episode Date Time [id number] 0+0000 [facility] Episode Duration 179 s [facility] Episode Identifier 2279 [facility] Episode Type Category Monitor [facility] Episode Date Time [id number] 0+0000 [facility] Episode Duration 142 s [facility] Episode Identifier 2278 [facility] Episode Type Category Monitor [facility] Episode Date Time [id number] 6+0000 [facility] Episode Duration 247 s [facility] Episode Identifier 2277 [facility] Episode Type Category Monitor [facility] Episode Date Time [id number] 6+0000 [facility] Episode Duration 589 s [facility] 08/20/2022 12:5 4 PM EST Narrative [facility] - 09/12/2022 9:44 AM EDT Gillian Jarrett Cardiac Device Interior Block [facility] Arrhythmia Service, [address] [place] [address] Cardiac Device Evaluation: Gisela Aguirre presents today at the [facility] device clinic for routine device follow up. Device Brand/Model: Medtronic [place] Pacemaker Reason for Implant: SND Insertion site unremarkable. Battery: 15.3 yrs Mode: AAI-DDD 60-130bpm % Pacing: AP 20.2% SYSTEM TECHNOLOGIST 1.3% Presenting Rhythm: SR 70s Underlying Rhythm: SR 70s RA 11.6 mV / 551 ohms / 0.75 V @ 0.4ms RV 2.3 mV / 513 ohms / 1.5V @ 0.4ms Events since last evaluation: Multiple AF detections accounting for 33.6% pt is on Xeralto 3 AF w/RVR detections secs in duration all on 2-14-23 rates up to 200bpm Pt denies symptoms Programming Changes: temporary programming changes made for testing purposes only. Summary: Device function normal with acceptable lead measurements and battery status. Please see attached report for further details. Follow Up: [facility] [place], 1 yr clinic with Device Tech and Dr Solis us Robbie Solis MD CV CARDIAC SERVICES ORD ERABLES Final Result [facility] [address] [place] [address] documented in this encounter Visit Diagnoses Diagnosis Sick sinus syndrome- Primary Sinoatrial node dysfunction Sick sinus syndrome Sinoatrial node dysfunction Sick sinus syndrome Sinoatrial node dysfunction Sick sinus syndrome Sinoatrial node dysfunction Sick sinus syndrome Sinoatrial node dysfunction Sick sinus syndrome Sinoatrial node dysfunction Sick sinus syndrome Sinoatrial node dysfunction Sick sinus syndrome Sinoatrial node dysfunction Sick sinus syndrome Sinoatrial node dysfunction Sick sinus syndrome Sinoatrial node dysfunction Sick sinus syndrome Sinoatrial node dysfunction documented in this encounter Additional Health Concerns Assessment Noted Time PHQ-2 Depression Total Score: 0 03/13/20 21 10:53 AM EDT documented as of this encounter Care Teams Shade Cloth Finisher Relationship Specialty Start Date End Date Sukhwinder Diaz MD [address] [place] [id number] PCP - General Internal Medicine 12/28/20 documented as of this encounter Additional Source Comments The information contained in this document represents components of the legal health record. It is not the complete legal health record.[facility]
--- OUTSIDE RECORDS SUMMARY | 2025-02-24 13:29 | XMS_ITS | Encounter Summary ---
Author Organization [facility] Address [address] [place] [address] Phone Care Team Providers Care Scholarship Counselor Name Role Phone Sukhwinder Diaz MD Primary Care Provider + Encounter Details Date Type Department Care Team (Late st Contact Info) Description 07/18/2022 Procedure Pass [facility] Electrophysiology Lab [address] [place] [address] Social History Tobacco Use Types Packs/Day Years [...] st Contact Info) Description 11/01/2022 Procedure Pass [facility] Cardio EP Device Monitoring [address] [place] [address] 02/04/2023 Procedure Pass [facility] Cardio EP Device Monitoring [address] [place] [address] 04/29/2023 Procedure Pass [facility] Cardio EP Device Monitoring [address] [place] [address] 08/05/2023 Procedure Pass [facility] Cardio EP Device Monitoring [address] [place] [address] 11/04/2023 Procedure Pass [facility] Cardio EP Device Monitoring [address] [place] [address] 02/03/2024 Procedure Pass [facility] Cardio EP Device Monitoring [address] [place] [address] 05/04/2024 Procedure Pass [facility] Cardio EP Device Monitoring [address] [place] [address] 08/03/2024 Procedure Pass [facility] Cardio EP Device Monitoring [address] [place] [address] 11/02/2024 Procedure Pass [facility] Cardio EP Device Monitoring [address] [place] [address] 02/01/2025 Procedure Pass [facility] Cardio EP Device Monitoring [address] [place] [address] 02/01/2025 Procedure Pass [facility] Cardio EP Device Monitoring [address] [place] [address] 05/17/2025 9:30 AM EST Appointment [facility] Cardio EP Device Monitoring [address] [place] [address] Robbie Solis MD [address] [place] [address] [place] [address] [email or web address] 08/16/2025 8:30 AM EST Appointment [facility] Cardio EP Device Monitoring [address] [place] [address] Robbie Solis MD [address] [place] [address] [place] [address] [email or web address] documented as of this encounter Visit Diagnoses Not on filedocumented in this encounter Additional Health Concerns Infection Onset Date Last Indicated Resolved Time CoV-Risk Comment:Per note documentation 07/17/2022 07/17/2022 01/27/202 3 12:43 AM EST Assessment Noted Time PHQ-2 Depression Total Score: 0 03/13/20 21 10:53 AM EDT documented as of this encounter Care Teams Scholarship Counselor Relationship Specialty Start Date End Date Sukhwinder Diaz MD [address] [place], [place] [id number] PCP - General Internal Medicine 12/28/20 documented as of this encounter Additional Source Comments The information contained in this document represents components of the legal health record. It is not the complete legal health record.[facility]
--- OUTSIDE RECORDS SUMMARY | 2025-02-24 13:29 | XMS_ITS | Clinical Summary ---
Author Organization [facility] Address [address] [place] [phone] Phone Care Team Providers Care Aircraft Engine Dismantler Name Role Phone Sukhwinder Diaz MD Primary Care Provider + Allergies Active Allergy Reactions Criticality Noted Date Comments Flecainide Dizziness,Lightheade dness, Other (See Comments) 03/13/2021 Sulfa (Sulfonamide Antibiotics) Rash Low 03/24/2005 Medications albuterol sulfate 90 mcg/actuation aebs Inhale into the lungs as needed. 1 Active calcium carbonate-vitamin D3 (CALCIUM 600 + D,3,) 600-125 mg-unit Tab Take by mouth 2 (two) times a day. Active hydrOXYchloroQUIN E (PLAQUENIL) 200 mg tablet Take 200 mg by mouth 2 (two) times a day. 1 Active omeprazole (PRILOSEC) 40 MG capsule Take by mouth daily. 1 Active rivaroxaban (XARELTO) 20 mg Tab Take 1 tablet by mouth daily. 1 Active torsemide (DEMADEX) 10 MG tablet Take 10 mg by mouth. Will take 20mg for worsening edema 1 Active therapeutic multivitamin tablet Take 1 tablet by mouth daily. Centrum Active miscellaneous medical supply Misc Inhale into the lungs. Active RESTASIS 0.05 % suspension 1 drop 2 (two) times a day. 2 Active sotaloL (BETAPACE) 120 MG tabletIndications :Atrial fibrillation, unspecified type Take 1 tablet (120 mg total) by mouth 2 (two) times a day. 180 tablet Active Active Problems Problem Noted Date Diagnosed Date Chronic anticoagulation 07/17/2022 Near syncope 07/17/2022 Sick sinus syndrome 07/17/2022 Persistent atrial fibrillation 04/25/2021 Atrial fibrillation 04/23/2021 Encounters Date Type Department Care Team Description 02/15/2025 10:30 AM EDT - 02/15/2025 11:59 PM EDT Hospital Encounter [facility] Cardio EP Device Monitoring [address] [place] [address] Robbie Solis MD Discharge Disposition: Home or Self Care 11/02/2024 Procedure Pass [facility] Cardio EP Device Monitoring [address] [place] [address] from Last 3 Months Immunizations Immunization Administration Dates Next Due Td, unspecified formulation 09/07/2001 Tdap 03/31/2011 Social History Tobacco Use Types Packs/Day Years [...] Orientation Straight 12/28/2020 11 :53 AM EDT Last Filed Vital Signs Vital Sign Reading Time Taken Comments Blood Pressure 119/56 07/24/2022 11:30 AM EST Pulse 65 07/24/2022 11:30 AM EST Temperature 36.2 C (97.1 F) 07/24/2022 11:30 AM EST Respiratory Rate 20 07/24/2022 11:3 0 AM EST Oxygen Saturation 97% 07/24/2022 11: 30 AM EST Inhaled Oxygen Concentration - - Weight 96.1 kg (211 lb 13.8 oz) 07/24/2022 6:10 AM EST Height 165.1 cm (5' 5 ) 07/17/2022 8:17 PM EST Body Mass Index 35.26 07/17/2022 8:17 PM EST Plan of Treatment Upcoming Encounters Date Type Department Care Team (Late st Contact Info) Description 11/01/2022 Procedure Pass [facility] Cardio EP Device Monitoring [address] [place] [address] 02/04/2023 Procedure Pass [facility] Cardio EP Device Monitoring [address] [place] [address] 04/29/2023 Procedure Pass [facility] Cardio EP Device Monitoring [address] [place] [address] 08/05/2023 Procedure Pass [facility] Cardio EP Device Monitoring [address] [place] [address] 11/04/2023 Procedure Pass [facility] Cardio EP Device Monitoring [address] [place] [address] 02/03/2024 Procedure Pass [facility] Cardio EP Device Monitoring [address] [place] [address] 05/04/2024 Procedure Pass [facility] Cardio EP Device Monitoring [address] [place] [address] 08/03/2024 Procedure Pass [facility] Cardio EP Device Monitoring [address] [place] [address] 11/02/2024 Procedure Pass [facility] Cardio EP Device Monitoring [address] [place] [address] 02/01/2025 Procedure Pass [facility] Cardio EP Device Monitoring [address] [place] [address] 02/01/2025 Procedure Pass [facility] Cardio EP Device Monitoring [address] [place] [address] 05/17/2025 9:30 AM EST Appointment [facility] Cardio EP Device Monitoring [address] [place] [address] Robbie Solis MD [address] [place] [address] [place] [address] 08/16/2025 8:30 AM EST Appointment [facility] Cardio EP Device Monitoring [address] [place] [address] Robbie Solis MD [address] [place] [address] [place] [address] Health Maintenance Due Date Last Done Comments HEPATITIS C SCREENING 1972 COLOGUARD 08/25/1999 COLONOSCOPY 08/25/1999 COLORECTAL CANCER SCREENING 08/25/1999 FIT TEST 08/25/1999 FOBT 08/25/1999 SIGMOIDOSCOPY 08/25/1999 VIRTUAL COLONOSCOPY 08/25/1999 ZOSTER VACCINES (1 of 2) 2004 OSTEOPOROSIS SCREENING INITIAL (ONE-TIME) 08/25/2019 DEPRESSION SCREENING 03/13/2022 03/13/2021 CREATININE LEVEL 07/24/2023 07/24/2022, 06/2022, 07/22/2022, Additional history exists INFLUENZA VACCINE (#1) 2025 COVID-19 VACCINE (2024- season) 2025 04/24/2022, 06/11/2021, 10/12/2020, Additional history exists MAMMOGRAM 12/20/2026 12/20/2024, 07/0 06/2024, 12/08/2023, Additional history exists LIPID PANEL 03/17/2029 03/17/2024, 0306/2023, 07/29/2022 RSV VACCINE (1 - 1-dose 75+ series) 2029 Adult Td,Tdap Booster 02/01/2032 01/31/2022 , 03/31/2011, 09/07/2001 SMOKING STATUS SCREENING (Once After 26 Yrs) Completed 04/23/2021 PNEUMOCOCCAL VACCINES (50+ years) Completed 03/12/2023, 01/31/2022 HEPATITIS A VACCINES Aged Out No long er eligible based on patient's age to complete this topic HIB VACCINES Aged Out No longer eligi ble based on patient's age to complete this topic MENINGOCOCCAL VACCINES (ACWY) Aged Out No longer eligible based on patient's age to complete this topic MENINGOCOCCAL VACCINES (B) Aged Out N o longer eligible based on patient's age to complete this topic Medical Devices Implanted Type Area Baseball Inspector Device Identifier Shelf Expiration Date Model / Serial / Lot Lead Pacing Selectsecure 4fr 69cm Bradycardia Steroid Eluting Fixed Screw Bipolar - [id number] Implanted:Qty: 1 on 07/21/2022 by Robbie Solis MD at [facility] Lead Left: Right Ventricle [employer] [id number] 06/04/2024 [id number] / [id number] / Lead Pacing Capsurefix 6.2fr 52cm Novus Mri Silicone Steroid Eluting Transvenous Atrium Rv Active Screw Is1 Bi - [id number] Implanted:Qty: 1 on 07/21/2022 by Robbie Solis MD at [facility] Lead Left: Right Atrium [employer] [id number] 05/19/2024 [id number] / [id number] / Medtronic In [id number] Margarita Xt Dr Zeng [id number] Pacemaker [employer] [id number] MARG[address] ZENG / [id number] / Device Pacemaker Kuna Xt Dr Zeng - [id number] Implanted:Qty: 1 on 07/21/2022 by Robbie Solis MD at [facility] Pacemaker Left: Chest [employer] [id number] 12/18/2023 [id number] / [id number] / Procedures Procedure Name Priority Date/Time Associated Diagnosis Comments BASIC METABOLIC PANEL Routine 07/24/2022 8:10 AM EST from Last 3 Months or Most Recently Relevant to Health Maintenance Results * (ABNORMAL) Basic metabolic panel (07/24/2022 8:10 AM EST) [facility] SODIUM 139 136 - 145 mmol/L [facility] POTASSIUM 4.1 3.4 - 5.1 mmol/L [facility] CHLORIDE 102 98 - 107 mmol/L [facility] CO2 27 22 - 31 mmol/L [facility] BUN 14 6 - 23 mg/dL [facility] CREATININE 0.81 0.50 - 1.20 mg/dL [facility] GLUCOSE 104(H) 70 - 100 mg/dL [facility] CALCIUM 9.3 8.8 - 10.7 mg/dL [facility] EGFR 80 >59 mL/min/1.7 3m2 [facility] Comment:Estimated glomerular filtration rate calculated using the CKD-EPI refit equation. ANION GAP 10 7 - 17 mmol/L [facility] Blood 07/24/2022 8:10 AM EST 07/24/2022 8:39 AM EST us Mark Dennis MD LAB BLOOD ORDERABLES Final Res ult Performing Organization Address City/State/RUST Co de Phone Number [facility] [address] [place] [phone] from Last 3 Months or Most Recently Relevant to Health Maintenance Insurance MEDICARE PART A & B [facility] MEDICARE SUPPLEMENT MEDICARE PART A & B [employer] MEDICARE SUPPLEMENT [employer] MEDICARE SUPPLEMENT MEDICARE PART A & B [facility] MEDICARE SUPPLEMENT MEDICARE PART A & B [facility] [place] [phone] MEDICARE PART A & B [facility] MEDICARE SUPPLEMENT MEDICARE PART A & B [employer] MEDICARE SUPPLEMENT MEDICARE PART A & B [employer] MEDICARE SUPPLEMENT MEDICARE PART A & B [facility] MEDICARE SUPPLEMENT [employer] Advance Directives For more information, please contact: [phone] (9AM - 5PM [facility], Thursday-Thursday) * Full Code (Latest Code Status on File) Date Activated Date Inactivated Comments 07/21/2022 3:00 PM Question Answer Comments Code Status Confirmed With: Patient * Full Code Date Activated Date Inactivated Comments 07/21/2022 2:53 PM 07/21/2022 3:00 PM Question Answer Comments Code Status Confirmed With: Patient * Full Code Date Activated Date Inactivated Comments 07/17/2022 11:36 PM 07/21/2022 2:53 PM Question Answer Comments Code Status Confirmed With: Patient * Full Code Date Activated Date Inactivated Comments 04/23/2021 1:11 PM 07/17/2022 11:36 PM Question Answer Comments Code Status Confirmed With: Patient * Full Code Date Activated Date Inactivated Comments 04/23/2021 7:51 AM 04/23/2021 1:11 PM Question Answer Comments Code Status Confirmed With: Patient Care Teams Aircraft Engine Dismantler Relationship Specialty Start Date End Date Sukhwinder Diaz MD [address] [place] [id number] PCP - General Internal Medicine 12/28/20 Additional Source Comments The information contained in this document represents components of the legal health record. It is not the complete legal health record.[facility]
--- OUTSIDE RECORDS SUMMARY | 2025-02-24 13:29 | XMS_ITS | Encounter Summary ---
Author Organization [facility] Address [address] [place] [phone] Phone Care Team Providers Care Plant Maintenance Engineer Name Role Phone Sukhwinder Diaz MD Primary Care Provider + Encounter Details Date Type Department Care Team (Late st Contact Info) Description 07/17/[address] [facility] Echocardiography [address] [place] [address] Social History Tobacco Use Types Packs/Day Years [...] Date of Assessment Author No Risk Indicated 07/17/2022 11:56 PM Fior Rushing RN * [place] Suicide Severity Rating Scale (Screener/Recent Self-Report) Question Answer Date of Assessment Author 1. Wish to be (Past 1 Month) No 07/17/2022 11:56 PM Fior Rushing RN 2. Non-Specific Active Suicidal Thoughts (Past 1 Month) No 07/17/2022 11:56 PM Fior Rushing RN 6. Suicidal Behavior (Lifetime) No 07/17/2022 11:56 PM Fior Rushing RN documented as of this encounter Plan of Treatment Upcoming Encounters Date Type Department Care Team (Late st Contact Info) Description 11/01/[address] [facility] Cardio EP Device Monitoring [address] [place] [address] 02/04/[address] [facility] Cardio EP Device Monitoring [address] [place] [address] 04/29/[address] [facility] Cardio EP Device Monitoring [address] [place] [address] 08/05/[address] [facility] Cardio EP Device Monitoring [address] [place] [address] 11/04/[address] [facility] Cardio EP Device Monitoring [address] [place] [address] 02/03/[address] [facility] Cardio EP Device Monitoring [address] [place] [address] 05/04/[address] [facility] Cardio EP Device Monitoring [address] [place] [address] 08/03/[address] [facility] Cardio EP Device Monitoring [address] [place] [address] 11/02/[address] [facility] Cardio EP Device Monitoring [address] [place] [address] 02/01/[address] [facility] Cardio EP Device Monitoring [address] [place] [address] 02/01/[address] [facility] Cardio EP Device Monitoring [address] [place] [address] 05/17/2025 9:[address] [facility] Cardio EP Device Monitoring [address] [place] [address] Robbie Solis MD [address] [place] [address] [place] [address] 08/16/2025 8:[address] [facility] Cardio EP Device Monitoring [address] [place] [address] Robbie Solis MD [address] [facility] [place] [address] documented as of this encounter Visit Diagnoses Not on filedocumented in this encounter Additional Health Concerns Infection Onset Date Last Indicated Resolved Time CoV-Risk Comment:Per note documentation 07/17/2022 07/17/2022 12:43 AM EST Assessment Noted Time PHQ-2 Depression Total Score: 0 03/13/20 21 10:53 AM EDT documented as of this encounter Care Teams Plant Maintenance Engineer Relationship Specialty Start Date End Date Sukhwinder Diaz MD [address] [place] [id number] PCP - General Internal Medicine 12/28/20 documented as of this encounter Additional Source Comments The information contained in this document represents components of the legal health record. It is not the complete legal health record.[facility]
--- NOTE | 2025-02-24 13:39 | MHC.OFFVIS ---
Vital Signs 02/24/25 13:44 Height 5 ft 5 in Weight 216 lb 7.903 oz BMI 36.0 BP 140/90 H Blood Pressure Location Lt brachial Position Sitting Pulse 59 Pulse Source Pulse Oximeter Pulse Oximetry (%) 98 Oxygen Delivery Method Room Air Intake Visit Reasons: 6wk follow up Intake Note: Patient presents for RA follow up. Allergies flecainide Allergy (Unknown, Verified 02/24/25 13:43) Unknown Sulfa (Sulfonamide Antibiotics) Allergy (Unknown, Verified 02/24/25 13:43) Unknown eggs Allergy (Intermediate, Uncoded 04/07/24 12:32) nausea vomiting Medication List - Last Reconciled 02/24/25 by Lizzie Zaragoza MD albuterol sulfate 90 mcg/actuation (ProAir HFA) 2 puffs inhalation Q6H PRN calcium carbonate-vitamin D3 600 mg-10 mcg (400 unit) (Calcium 600 + D(3)) 1 tab PO BID cyclosporine 0.05% (Restasis) drps ophthalmic (eye) hydroxychloroquine 200 mg PO BID multivitamin 1 tab PO DAILY omeprazole 40 mg PO DAILY perfluorohexyloctane (PF) 100% (Miebo (PF)) 1 drp ophthalmic (eye) QID rivaroxaban (Xarelto) 20 mg PO DAILY sotalol 120 mg PO Q12H torsemide 10 mg PO BID [wrist splint (left hand) As directed] HPI Comments Details: Patient is a 68-year-old female with hypertension, obstructive sleep apnea, sick sinus syndrome status post pacemaker, atrial fibrillation on long-term anticoagulation who presents for follow-up of her osteopenia and seronegative rheumatoid arthritis. Interval History: Last seen 01/10/25 with me - On Hydroxychloroquine 200mg bid - Doing well - C/o left hand numbness of lateral 3 fingers - Recommended splinting x 6 weeks Today - On Hydroxychloroquine 200mg bid - patient splinted for the past 6 weeks however has persistent symptoms Rheumatologic History: Presented in 2006 with PMR like presentation. RF and CCP antibodies negative. Started on hydroxychloroquine in 2008. Has been stable on this since then. Current Rheumatology Medication(s): Hydroxychloroquine 200mg bid PFSH Medical History Pacemaker CTS (carpal tunnel syndrome) Allergic rhinitis Venous insufficiency JOHN (obstructive sleep apnea) Snoring Palpitations Hypertension Thoracic aortic aneurysm without rupture Esophageal stricture Surgical History Hx of breast biopsy H/O cardiac radiofrequency ablation Hx of tonsillectomy Hx of colonoscopy Dilatation of esophagus History of carpal tunnel release Family History Mother Heart disease Alzheimer disease Father Pancreas cancer Sister Breast cancer A-fib Social History Household Members: Children Alcohol intake: current Patient Tobacco Use Status: Never used Tobacco Current occupational status: employed Current occupation: [employer] Review of Systems Const All systems reviewed & are unremarkable except as noted in HPI and below Physical Exam Exam Exam: Vital signs reviewed Physical Examination CONSTITUITIONAL Patient alert and cooperative. Well appearing and in no apparent painful distress MSK Wrists Right Wrist: Full ROM to flexion and extension. No swelling or TTP Left Wrist: Full ROM to flexion and extension. No swelling or TTP SKIN No rashes Vital Signs: Last Vital Signs Pulse 59 02/24/25 13:44 BP 140/90 H 02/24/25 13:44 Pulse Ox 98 02/24/25 13:44 Oxygen Delivery Method Room Air 02/24/25 13:44 BMI result Body Mass Index 36.0 Office Procedures AMB Carpal Tunnel Injection AMB Carpal Tunnel Injection Details: Date: 02/24/2025 Study Type: Limited Ultrasound with Guidance of needle placement Indication:Left hand numbness Study Site: Left Wrist Equipment: FilesX Brief History: Patient is a 68-year-old female with seronegative rheumatoid arthritis, complained on 01/10/25 of left hand numbness. Exam and history consistent with carpal tunnel. She was recommended splinting for 6 weeks however her symptoms persisted Findings: Orthogonal views of the dorsal left wrist was obtained in grayscale and Doppler. Median nerve was identified It was enlarged based on visual inspection, unable to to diameter calculations due to machine errors Procedure: Procedure was explained to the patient and informed consent was obtained. ? Risks associated with the procedure were discussed with the patient including but not limited to bleeding, infection, drug reactions and reactions to the topical anesthetic. Patient made aware of signs to look out for infectious complications. The area of interest was identified using ultrasound. Doppler was used to ensure there was no vessels in the vicinity. ?This was subsequently cleaned with chlorhexidine x 2. ? The area was then anesthetized using ethyl chloride spray. 40 mg Kenalog with 1 cc 1% lidocaine was injected without issue. ?Minimal to no bleeding. ?Patient tolerated procedure. 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 40 mg epineurium left wrist 1 mL [id number] 01/20/27 [id number] [employer] Total Dispensed Waste 1 mL 0 % Results Reviewed Results Reviewed: Scanned lab results reviewed 09/02/2024 ESR 27 WBC 5.5 HB 11.8 Platelets 280 AST 19 ALT 25 Creatinine 0.94 GFR 65 CRP 0.98 Assessment & Plan Assessment & Plan (1) Carpal tunnel syndrome of left wrist: Code(s): G56.02 - Carpal tunnel syndrome, left upper limb Plan: #Carpal tunnel syndrome left wrist Patient is a 69-year-old female with rheumatoid arthritis here today for follow up after failed splinting trial of 6 weeks for left wrists carpal tunnel syndrome. Ultrasound-guided steroid injection of median nerve done successfully today. Recommend that she continue splinting for the next 2 weeks and following up in 4 months Plan I spent 20 minutes reviewing the record and labs, taking a history, examining the patient, discussing the treatment plan and documenting in the medical record Orders: Orders US Guided Inj Carpal Tunnel LT Today G56.02 - Carpal tunnel syndrome, left upper limb AMB Carpal Tunnel Injection Today G56.02 - Carpal tunnel syndrome, left upper limb Coding Level of Care Code Est Pt Level 3 (25835) Diagnoses Carpal tunnel syndrome of left wrist G56.02 CPT Codes AMB Carpal Tunnel Injection - Carpal Tunnel Therapeutic Injection - : Left ([id number])
[2025-02-24 13:44] VITALS: BP 140/90; PULSE 59; O2SAT 98; BMI 36.0
== END 2025-02-24 14:30 | disposition home or self-care (01) ==
LOC: HO.RHES 13:15
PROVIDERS: PCP Internal Medicine; Visit Provider Student in an Organized Health Care Education/Training Program
DX: G56.02 Carpal tunnel syndrome, left upper limb (principal)
CPT/HCPCS: 20526; 99213

== ENCOUNTER → 2025-02-24 13:14 | Outpatient (BNVA) | payer MEDICARE, OTHER, SELFPAY | PROVIDERS: PCP Internal Medicine; Visit Provider Student in an Organized Health Care Education/Training Program | DX: G56.02 Carpal tunnel syndrome, left upper limb (principal) | CPT/HCPCS: 20526; 99212; J1010 ==